=== PATIENT | female | born 1930 | race Caucasian/White ===

== ENCOUNTER 2017-04-26 18:13 | Inpatient (IN) | payer MEDICARE, OTHER ==
[~2017-04-26] VITALS: Ht 154.9 cm; Wt 103.9 kg
[~2017-04-26 18:13] MED LIST: ACET-2605 PO; AMIO200T2 PO; BISA10SU8 RC; BLOO-129 IN; DEXT1CAP3 PO; DOCU-141 PO; FLUT1DIS3 IH; HYDR-3974 PO; LEVO88TA5 PO; LISI10TA5 PO; MAGN400O21 PO; MONT10TA22 PO; NA P133E RC; PANT40TA2 PO; PIOG15TA8 PO; REGULAR INSULIN SQ; RIVA10TA PO; SIMV20TA2 PO
[2017-04-26] MEDS ORDERED: IPRATROPIUM NEB FS 0.5 MG/2.5 ML AMPUL.NEB NEB ONE (20:00)
[2017-04-26] MEDS ORDERED: ALBUTEROL FS 2.5 MG/0.5 ML VIAL.NEB NEB ONE ×2 (20:00→21:00)
--- NOTE | 2017-04-26 20:05 | NUR ---
GUS ALVARENGA (DAUGHTER.
[2017-04-26] MEDS ORDERED: IPRATROPIUM NEB FS 0.5 MG/2.5 ML AMPUL.NEB ONE (20:11)
[2017-04-26] MEDS ORDERED: ALBUTEROL FS 2.5 MG/0.5 ML VIAL.NEB ONE (20:11)
[2017-04-26 20:21] LABS: BASOPHILS # (AUTO) 0.2 /CMM (0.0-0.2); BASOPHILS % (AUTO) 1.5 % (0.0-2.0); EOSINOPHILS # (AUTO) 0.2 /CMM (0.0-0.7); EOSINOPHILS % (AUTO) 1.9 % (0.0-6.0); HEMATOCRIT 38 % (33-45); HEMOGLOBIN 12.8 g/dL (11.5-14.8); LYMPHOCYTES # (AUTO) 2.7 /CMM (0.8-4.8); LYMPHOCYTES % (AUTO) 26.6 % (20.0-44.0); MEAN CORPUSCULAR HEMOGLOBIN 30 PG (26.0-33.0); MEAN CORPUSCULAR HGB CONC 33 g/dl (31.0-36.0); MEAN CORPUSCULAR VOLUME 90 fL (82-100); MONOCYTES % (AUTO) 9.5 % (2.0-12.0); NEUTROPHILS % (AUTO) 60.5 % (43.0-81.0); PLATELET COUNT (AUTO) 162 /CMM (150-450); RDW COEFFICIENT OF VARIATION 13.6 (11.5-15.0); RED BLOOD CELL COUNT(AUTO) 4.27 MIL/uL (4.0-5.2); WHITE BLOOD COUNT (AUTO) 10.1 K/uL (4.3-11.0)
--- NOTE | 2017-04-26 20:25 | NUR ---
Line started on R FA g 20, blood drawn from line and sent to lab
[2017-04-26 20:33] LABS: CARBON DIOXIDE 36 mmol/L (21-32); CHLORIDE 105 mmol/L (98-107); CREATININE 0.7 mg/dL (0.6-1.3); GLUCOSE 123 mg/dL (74-106); POTASSIUM 4.5 mmol/L (3.5-5.1); SODIUM SERUM 143 mmol/L (136-145); UREA NITROGEN, BLOOD 19 mg/dL (7-18)
[2017-04-26 20:36] LABS: INR 0.99 (0.85-1.15)
[2017-04-26 20:38] LABS: ALANINE AMINOTRANSFERASE 8 U/L (12-78); ALBUMIN 2.3 g/dL (3.4-5.0); ALKALINE PHOSPHATASE 64 U/L (46-116); ASPARTATE AMINOTRANSFERASE 18 U/L (15-37); BILIRUBIN,DIRECT 0.1 mg/dL (0.0-0.2); BILIRUBIN,TOTAL 0.3 mg/dL (0.2-1.0); TOTAL PROTEIN, SERUM 7.4 g/dL (6.4-8.2)
[2017-04-26 20:53] LABS: TROPONIN I < 0.017 ng/mL (0.00-0.056)
[2017-04-26] MEDS ORDERED: methylPREDNISolone SOD SUCC 125 MG/2ML VIAL ONE (20:55)
[2017-04-26] MEDS ORDERED: methylPREDNISolone SOD SUCC 125 MG/2ML VIAL IV ONE (21:00)
--- NOTE | 2017-04-26 21:20 | NUR ---
teresita beavers talking to pt daughter.
--- NOTE | 2017-04-26 21:32 | NUR ---
report called to television camera operatorstephen quinones. will transport pt via acls protocol.
[2017-04-26 22:00] VITALS: BP 132/76
--- NOTE | 2017-04-26 22:15 | NUR ---
TELE/RN OPENING NOTES PT RECEIVED FROM ER VIA [facility]. CURRENTLY RECEIVING BREATHING TX. IV TO RFA PATENT AND INTACT. PLACED ON TELE MONITOR SHOWING SR WITH HR 60. ORIENTED PT TO ROOM AND CALL LIGHT. BED IN LOW/LOCKED POSITION WITH CALL LIGHT IN REACH. SIDE RAILS UPX2. WILL CONTINUE TO MONITOR
[2017-04-26] MEDS ORDERED: IPRATROPIUM NEB FS 0.5 MG/2.5 ML AMPUL.NEB NEB PRN (22:30)
[2017-04-26] MEDS ORDERED: ALBUTEROL FS 2.5 MG/0.5 ML VIAL.NEB NEB PRN (22:30)
[2017-04-27] VITALS: BP 120/60
[2017-04-27] MEDS ORDERED: Z GUARD REMEDY 2 OZ OINT TP PRN
[2017-04-27] MEDS ORDERED: ONDANSETRON HCL/PF 4 MG/2 ML VIAL IVP PRN
[2017-04-27] MEDS ORDERED: DEXTROSE 50%-WATER 50 ML DISP.SYRIN IV PRN
[2017-04-27] MEDS ORDERED: ACETYLCYSTEINE 10% SOLN 400 MG/4 ML VIAL NEB ONE (01:30)
[2017-04-27] MEDS ORDERED: LEVOFLOXACIN 500 MG /D5W 100ML 100 ML IV ONE (01:43)
[2017-04-27] MEDS: IV NS 0.9% 1,000 ML IV PRN ×2 (01:47→21:36)
[2017-04-27] MEDS ORDERED: LEVOFLOXACIN 500 MG /D5W 100ML 500 MG in PREMIX 1 EA IV SCH (02:00)
[2017-04-27] MEDS: IPRATROPIUM NEB FS 0.5 MG/2.5 ML AMPUL.NEB NEB SCH ×6 (03:18→23:54)
[2017-04-27] MEDS ORDERED: ALBUTEROL FS 2.5 MG/0.5 ML VIAL.NEB NEB SCH (03:30)
[2017-04-27 04:00] VITALS: BP 139/66
[2017-04-27] MEDS: methylPREDNISolone SOD SUCC 125 MG/2ML VIAL IV SCH ×3 (04:39→21:29)
[2017-04-27] MEDS: BLOOD SUGAR DIAGNOSTIC 1 EACH STRIP VI SCH ×4 (06:48→21:05)
[2017-04-27] MEDS: INSULIN REGULAR, HUMAN 100 UNIT/ML 3 ML VIAL SQ PRN ×2 (06:51→14:35)
[2017-04-27 07:04] LABS: BASOPHILS % (AUTO) 0.2 % (0.0-2.0); EOSINOPHILS % (AUTO) 0.1 % (0.0-6.0); HEMATOCRIT 34 % (33-45); HEMOGLOBIN 11.3 g/dL (11.5-14.8); LYMPHOCYTES # (AUTO) 1.3 /CMM (0.8-4.8); LYMPHOCYTES % (AUTO) 16.4 % (20.0-44.0); MEAN CORPUSCULAR HEMOGLOBIN 30 PG (26.0-33.0); MEAN CORPUSCULAR HGB CONC 33 g/dl (31.0-36.0); MEAN CORPUSCULAR VOLUME 90 fL (82-100); MONOCYTES # (AUTO) 0.1 /CMM (0.1-1.30); MONOCYTES % (AUTO) 1.3 % (2.0-12.0); NEUTROPHILS # (AUTO) 6.4 /CMM (1.8-8.9); PLATELET COUNT (AUTO) 156 /CMM (150-450); RDW COEFFICIENT OF VARIATION 14.1 (11.5-15.0); RED BLOOD CELL COUNT(AUTO) 3.77 MIL/uL (4.0-5.2); WHITE BLOOD COUNT (AUTO) 7.8 K/uL (4.3-11.0)
--- NOTE | 2017-04-27 07:09 | NUR ---
TELE/RN CLOSING NOTES PT AWAKE, SITTING UP IN BED. ON 3L O2 VIA NC, BREATHING EVEN AND UNLABORED. HOB ELEVATED FOR OPTIMAL LUNG EXPANSION. WHEEZING NOTED DURING SHIFT. INTERMITTENT SOB. BREATHING TX PROVIDED ORDERED. IN NO DISTRESS AT THIS TIME. ON TELE MONITOR SHOWING SR/SB WITH HR 56. IV TO RFA PATENT AND INTACT RUNNING IVF ORDERED. TURNED/REPOSITIONED Q2H. HEELS OFFLOADED. WOUND CONSULT ORDERED. ALL NEEDS MET. MADE PT COMFORTABLE DURING SHIFT. BED IN LOW/LOCKED POSITION WITH CALL LIGHT IN REACH. SIDE RAILS UPX2. BED ALARM ON FOR SAFETY.
[2017-04-27 07:13] LABS: CALCIUM, SERUM 8.5 mg/dL (8.5-10.1); CARBON DIOXIDE 33 mmol/L (21-32); CHLORIDE 103 mmol/L (98-107); CREATININE 0.8 mg/dL (0.6-1.3); GLUCOSE 166 mg/dL (74-106); MAGNESIUM 2.1 mg/dL (1.8-2.4); PHOSPHORUS 3.2 mg/dL (2.5-4.9); POTASSIUM 4.4 mmol/L (3.5-5.1); SODIUM SERUM 142 mmol/L (136-145); UREA NITROGEN, BLOOD 21 mg/dL (7-18)
[2017-04-27 07:17] LABS: CHOLESTEROL 156 mg/dL (<200); HDL CHOLESTEROL 58 mg/dL (40-60); LDL 86 mg/dL (0-99); TRIGLYCERIDES 80 mg/dL (30-150)
[2017-04-27] MEDS: ACETYLCYSTEINE 10% SOLN 400 MG/4 ML VIAL NEB SCH ×3 (07:35→23:30)
[2017-04-27 08:00] VITALS: BP 161/88
--- NOTE | 2017-04-27 08:00 | NUR ---
MS GONZALEZ RECEIVED A VENT DEPENDENT PATIENT,NONVERBAL, G TUBE FEEDING ON, TOLERATING W/O RESIDUAL, BILATERAL LEGS AND ARMS EDEMA,REPOSITIONED FOR COMFORT. Addendum: 04/27/17 at 1743 by RONALD LIM RN DISREGARD NOTES, WRONG PATIENT .
--- NOTE | 2017-04-27 08:05 | NUR ---
MS RN RECEIVED ON BED, AWAKE,ALERT,ORIENTEDX3,NOT IN ANY FORM OF DISTRESS, RESPIRATIONS EVEN AND UNLABORED,NO SOB NOTED. LUNGS ARE CLEAR,ABDOMEN SOFT,POSITIVE BOWEL SOUNDS, DENIES PAIN AT THIS TIME,WILL MONITOR PATIENT.
[2017-04-27] MEDS ORDERED: FLUTICASONE/SALMETEROL DISKUS IH SCH (09:00)
[2017-04-27] MEDS ORDERED: ENOXAPARIN SODIUM 40 MG/0.4 ML DISP.SYRIN SQ SCH (09:00)
--- NOTE | 2017-04-27 09:00 | NUR ---
MS GONZALEZ BREAKFAST SERVED,DUE MEDS GIVEN, TOLERATED WELL.
[2017-04-27] MEDS: PIOGLITAZONE HCL 15 MG TABLET PO SCH (09:08)
[2017-04-27] MEDS: PANTOPRAZOLE 40 MG TABLET.DR PO SCH (09:08)
[2017-04-27] MEDS: LEVOTHYROXINE SODIUM 88 MCG TABLET PO SCH (09:08)
[2017-04-27] MEDS: AMIODARONE HCL 200 MG TABLET PO SCH (09:09)
[2017-04-27] MEDS: LISINOPRIL (10MG) 10 MG TABLET PO SCH (09:09)
--- NOTE | 2017-04-27 10:00 | NUR ---
MS RN WAS SEEN BY DR. CHANDA Lagos/ ORDERS MADE AND CARRIED OUT.
--- NOTE | 2017-04-27 11:43 | NUR ---
WOUND CARE CONSULT: PT PRESENTS WITH BILATERAL BUTTOCK STAGE 2 ULCERS, PRESENT ON ADMISSION. CURRENT FATOUMATA SCORE IS 12. PT ON DON ISOFLEX LOW AIRLOSS BED. ALL SKIN PROTECTION AND WOUND RECOMMENDATIONS DISCUSSED WITH NURSING STAFF. WILL SEE PRN. FREEDMAN IN AGREEMENT WITH PLAN OF CARE.
[2017-04-27 12:00] VITALS: BP 140/74
[2017-04-27] MEDS ORDERED: HYDROGEL DRESSING 90 GM TUBE TP SCH (12:00)
[2017-04-27] MEDS ORDERED: HYDROGEL DRESSING 90 GM TUBE TP PRN (12:00)
[2017-04-27] MEDS: FLUTICASONE/VILANTEROL 1 EACH BLST.W.DEV IH SCH (14:30)
[2017-04-27 16:00] VITALS: BP 136/74
--- NOTE | 2017-04-27 17:00 | NUR ---
MS RN PATIENT IS ALWAYS SCREAMING, WANTED TO GO HOME, ALL NEEDS ATTENDED.
[2017-04-27] MEDS: RIVAROXABAN 15 MG TABLET PO SCH (18:27)
[2017-04-27] MEDS: SIMVASTATIN 20 MG TABLET PO SCH (18:27)
--- NOTE | 2017-04-27 19:00 | NUR ---
MS RN ON BED, REFUSED BLOOD SUGAR CHECK AND DINNER,NO DISTRESS NOTED.
[2017-04-27 20:00] VITALS: BP 139/73
[2017-04-27] MEDS: *INSULIN REGULAR(HUMULIN R)HUM 100 UNIT/ML VIAL SQ PRN (21:21)
[2017-04-27] MEDS: MONTELUKAST SODIUM (10MG) 10 MG TABLET PO SCH (21:30)
[2017-04-28] MEDS: ZOLPIDEM TARTRATE 5 MG TABLET PO PRN ×2 (00:22→21:33)
[2017-04-28] MEDS: LEVOFLOXACIN 250 MG /D5W 50 ML 250 MG in PREMIX 1 EA IV SCH (01:03)
[2017-04-28] MEDS: IPRATROPIUM NEB FS 0.5 MG/2.5 ML AMPUL.NEB NEB SCH ×5 (03:30→20:53)
[2017-04-28] MEDS: methylPREDNISolone SOD SUCC 125 MG/2ML VIAL IV SCH ×3 (05:55→21:30)
[2017-04-28] MEDS: INSULIN REGULAR, HUMAN 100 UNIT/ML 3 ML VIAL SQ PRN ×3 (06:02→18:31)
[2017-04-28] MEDS: BLOOD SUGAR DIAGNOSTIC 1 EACH STRIP VI SCH ×4 (06:24→21:31)
--- NOTE | 2017-04-28 07:11 | NUR ---
RN NOTES No significant change in condition. on oxygen inhalation via nasal cannula with no respiratory distress noted. No SOB noted. Patient is forgetful and confused, reality orientation provided. Turned and repositioned as scheduled, good skin care provided. Due meds given as ordered. All nursing care attended. Will continue to monitor.
[2017-04-28] MEDS: ACETYLCYSTEINE 10% SOLN 400 MG/4 ML VIAL NEB SCH ×2 (07:32→15:44)
[2017-04-28 08:00] VITALS: BP 147/75
--- NOTE | 2017-04-28 08:00 | NUR ---
ms rn received on bed, awake,alert,oriented x2-3,not in any form of distress, respirations even and unlabored,no sob noted.lungs have wheezes bilaterally, abdomen soft,positive bowel sounds, denies pain at this time.will monitor patient.
--- NOTE | 2017-04-28 08:30 | NUR ---
ms rn patient on bed, eating,all needs attended.
--- NOTE | 2017-04-28 08:40 | NUR ---
ms rn student ask if patient can be move up. told her that patient is so heavy,cannot even get up.
--- NOTE | 2017-04-28 08:42 | NUR ---
ms rn student ask if patient can have oxygen, told her that yes, she can have but sometimes she remove it.
--- NOTE | 2017-04-28 08:56 | NUR ---
ms rn was notified that students are trying to get up patient to the wheelchair, and patient fell, went to the room immediately, saw students and patient on the floor lying down. i cannot imagine students trying to move patient from bed to wheelchair w/o notifying rn , wearing a regular socks and w/o the presence of their instructor. assessed patient , no pain noted,no bruise/skin breakdown, able to move bilateral upper and lower limbs.will notify .
--- NOTE | 2017-04-28 09:30 | NUR ---
ms rn due meds given,tolerated well.
--- NOTE | 2017-04-28 10:00 | NUR ---
ms rn was seen by dr. batista, was notified about the fall, assessed patient and decided that xray is not needed.
[2017-04-28] MEDS: FLUTICASONE/VILANTEROL 1 EACH BLST.W.DEV IH SCH (10:23)
[2017-04-28] MEDS: LEVOTHYROXINE SODIUM 88 MCG TABLET PO SCH (10:23)
[2017-04-28] MEDS: PANTOPRAZOLE 40 MG TABLET.DR PO SCH (10:24)
[2017-04-28] MEDS: AMIODARONE HCL 200 MG TABLET PO SCH (10:25)
[2017-04-28] MEDS: LISINOPRIL (10MG) 10 MG TABLET PO SCH (10:25)
[2017-04-28] MEDS: PIOGLITAZONE HCL 15 MG TABLET PO SCH (10:25)
[2017-04-28] MEDS ORDERED: FUROSEMIDE 20 MG/2 ML VIAL IV ONE (11:00)
[2017-04-28] MEDS: ALBUTEROL FS 2.5 MG/0.5 ML VIAL.NEB NEB SCH ×3 (11:12→20:53)
[2017-04-28] MEDS ORDERED: IPRATROPIUM NEB FS 0.5 MG/2.5 ML AMPUL.NEB NEB SCH (11:30)
--- NOTE | 2017-04-28 15:00 | NUR ---
ms rn sleeping, no distress noted.
[2017-04-28 16:00] VITALS: BP 130/66
[2017-04-28] MEDS: SIMVASTATIN 20 MG TABLET PO SCH (17:44)
[2017-04-28] MEDS: RIVAROXABAN 15 MG TABLET PO SCH (17:46)
--- NOTE | 2017-04-28 18:34 | NUR ---
ms rn on bed, no distress noted, all needs attended.
--- NOTE | 2017-04-28 19:30 | NUR ---
RN NOTE; RECEIVED PT IN BED AWAKE AND ANXIOUS. BREATHING EVENLY. SKIN WARM ND DRY. NO C/O PAIN OR DISCOMFORT. SUPPLEMENTAL O2 TOLERATED WELL. NEEDS ATTENDED. BED LOW LOCKED .CALL LIGHT WITHIN REACH. WILL CONT TO MONITOR ,
[2017-04-28 20:00] VITALS: BP 123/74
[2017-04-28] MEDS: MONTELUKAST SODIUM (10MG) 10 MG TABLET PO SCH (21:30)
[2017-04-28] MEDS: *INSULIN REGULAR(HUMULIN R)HUM 100 UNIT/ML VIAL SQ PRN (21:31)
--- NOTE | 2017-04-28 21:33 | NUR ---
MARTHAIEN GIVEN ORDERED PER PT'S REQUEST FOR C/O INSOMNIA. WILL CONT TO MONITOR.
[2017-04-29] MEDS: ALBUTEROL FS 2.5 MG/0.5 ML VIAL.NEB NEB SCH ×5 (00:15→15:37)
[2017-04-29] MEDS: IPRATROPIUM NEB FS 0.5 MG/2.5 ML AMPUL.NEB NEB SCH ×5 (00:15→15:37)
[2017-04-29] MEDS: ACETYLCYSTEINE 10% SOLN 400 MG/4 ML VIAL NEB SCH ×3 (00:16→15:38)
[2017-04-29] MEDS: LEVOFLOXACIN 250 MG /D5W 50 ML 250 MG in PREMIX 1 EA IV SCH (02:06)
[2017-04-29] MEDS: methylPREDNISolone SOD SUCC 125 MG/2ML VIAL IV SCH ×2 (04:45→13:36)
--- NOTE | 2017-04-29 06:35 | NUR ---
RN NOTES: PATIENT IN BED SLEEPING COMFORTABLY. NO ACUTE DISTRESS NOTED. BREATHING EVEN AND UNLABORED. SKIN IS WARM AND DRY TOUCH. NO C/O PAIN OR DISCOMFORT NOTED AT THIS TIME. PT. TURNED AND REPOSITIONED Q2 AND PRN. IV SITE TO LEFT FA PATENT AND INTACT. ALL NEEDS ATTENDED AND ANTICIPATED. BED IN LOW LOCKED POSITION. FALL PRECAUTIONS OBSERVED AT ALL TIMES. CALL LIGHTS WITHIN REACH. Addendum: 04/29/17 at 0701 by LEIF HANEY RN IV SITE TO LEFT INDEX FINGER
[2017-04-29] MEDS: BLOOD SUGAR DIAGNOSTIC 1 EACH STRIP VI SCH ×2 (06:49→11:56)
[2017-04-29] MEDS: INSULIN REGULAR, HUMAN 100 UNIT/ML 3 ML VIAL SQ PRN ×2 (06:52→11:59)
--- NOTE | 2017-04-29 07:30 | NUR ---
MS RN NOTES PATIENT RECEIVED RESTING INSIDE ROOM, AWAKE, ALERT AND ORIENTED, ABLE TO MAKE NEEDS KNOWN AND FOLLOW SIMPLE INSTRUCTIONS, BREATHING EVEN AND UNLABORED. NO SOB OR ACUTE DISTRESS NOTED AT THIS TIME. PATIENT CALM AND RELAXED. NO CHANGES IN LOC NOTED AT THIS TIME. WILL CONTINUE TO MONITOR. BED LOCKED AND IN LOW POSITION, BILATERAL UPPER SIDE RAILS UP AND LOCKED. CALL LIGHT WITHIN EASY REACH
[2017-04-29] MEDS: FLUTICASONE/VILANTEROL 1 EACH BLST.W.DEV IH SCH (08:22)
[2017-04-29] MEDS: PIOGLITAZONE HCL 15 MG TABLET PO SCH (08:23)
[2017-04-29] MEDS: LEVOTHYROXINE SODIUM 88 MCG TABLET PO SCH (08:23)
[2017-04-29] MEDS: LISINOPRIL (10MG) 10 MG TABLET PO SCH (08:23)
[2017-04-29] MEDS: PANTOPRAZOLE 40 MG TABLET.DR PO SCH (08:25)
[2017-04-29 08:26] VITALS: BP 124/63
[2017-04-29] MEDS: AMIODARONE HCL 200 MG TABLET PO SCH (08:26)
--- NOTE | 2017-04-29 16:40 | NUR ---
MS RN NOTES PATIENT LEFT UNIT VIA GURNEY. LEFT IN STABLE CONDITION. NO SOB OR ACUTE DISTRESS NOTED. BREATHING EVEN AND UNLABORED. DENIES ANY PAIN OR DISCOMFORT. NO CHANGES IN LOC NOTED. PATIENT AFEBRILE, SKIN DRY AND WARM TO TOUCH. EXITCARE INSTRUCTIONS PROVIDED. DISCHARGE TEACHING PROVIDED. BELONGINGS COMPLETE UPON DISCHARGE.
--- NOTE | 2017-04-29 17:00 | NUR ---
MS RN NOTES PLACED CALL TO [facility] AND SPOKE WITH JESSICA GONZALEZ, GAVE REPORT REGARDING PATIENT.
== END 2017-04-29 18:45 | DRG 190 ==
LOC: ER 18:22 → TELE 21:13 → MED 04-27 16:48
PROVIDERS: ADMIT Nurse Practitioner Acute Care; ATTEND Nurse Practitioner Acute Care
DX: J44.1 Chronic obstructive pulmonary disease with (acute) exacerbation (principal); J96.01 Acute respiratory failure with hypoxia; L89.310 Pressure ulcer of right buttock, unstageable; I11.0 Hypertensive heart disease with heart failure; L89.320 Pressure ulcer of left buttock, unstageable; I48.2 Chronic atrial fibrillation; I50.32 Chronic diastolic (congestive) heart failure; E11.9 Type 2 diabetes mellitus without complications; J44.0 Chronic obstructive pulmonary disease with (acute) lower respiratory infection; E86.0 Dehydration; E78.5 Hyperlipidemia, unspecified; E03.9 Hypothyroidism, unspecified; I25.10 Atherosclerotic heart disease of native coronary artery without angina pectoris; F03.90 Unspecified dementia, unspecified severity, without behavioral disturbance, psychotic disturbance, mood disturbance, and anxiety; F41.9 Anxiety disorder, unspecified; K21.9 Gastro-esophageal reflux disease without esophagitis; Z96.659 Presence of unspecified artificial knee joint; Z79.899 Other long term (current) drug therapy; Z79.01 Long term (current) use of anticoagulants; K59.00 Constipation, unspecified; M19.90 Unspecified osteoarthritis, unspecified site; G89.29 Other chronic pain; J20.9 Acute bronchitis, unspecified; I70.0 Atherosclerosis of aorta
CPT/HCPCS: 36415; 71045-TC; 80048-TC; 80061-TC; 80076-TC; 82962-TC; 83605-TC; 83735-TC; 83880; 84100-TC; 84484-TC; 85025-TC; 85730-TC; 87040-TC; 87081-TC; 93307-TC; 94799-TC; A4216; A4606; A6248; J1815; J1940; J1956; J2405; J2930; J7030; Z7610

== ENCOUNTER 2017-08-28 20:28 | Emergency (ER) | payer MEDICARE, OTHER ==
[~2017-08-28] VITALS: Ht 165.1 cm; Wt 113.4 kg
[~2017-08-28 20:28] MED LIST changes: -AMIO200T2 PO; +AMIO200T4 PO
--- NOTE | 2017-08-28 20:50 | NUR ---
PT AA/OX4 COMPLAINING OF LOW BACK PAIN X3 DAYS. NAD. STABLE CONDITION. AWAITING MD PEDROZA.
--- NOTE | 2017-08-28 22:00 | NUR ---
PT RESTING COMFORTABLY. NAD
[2017-08-28] MEDS ORDERED: IV NS 0.9% 500 ML IV PRN (22:30)
--- NOTE | 2017-08-28 22:41 | NUR ---
LAB AT BEDSIDE
[2017-08-28 22:48] LABS: BASOPHILS % (AUTO) 0.3 % (0.0-2.0); EOSINOPHILS % (AUTO) 0.7 % (0.0-6.0); HEMATOCRIT 37 % (33-45); HEMOGLOBIN 12.2 g/dL (11.5-14.8); MEAN CORPUSCULAR HEMOGLOBIN 30 PG (26.0-33.0); MEAN CORPUSCULAR HGB CONC 33 g/dl (31.0-36.0); MEAN CORPUSCULAR VOLUME 93 fL (82-100); MONOCYTES # (AUTO) 0.7 /CMM (0.1-1.30); MONOCYTES % (AUTO) 8.9 % (2.0-12.0); NEUTROPHILS # (AUTO) 4.1 /CMM (1.8-8.9); NEUTROPHILS % (AUTO) 52.1 % (43.0-81.0); PLATELET COUNT (AUTO) 131 /CMM (150-450); RDW COEFFICIENT OF VARIATION 14.6 (11.5-15.0); RED BLOOD CELL COUNT(AUTO) 4.02 MIL/uL (4.0-5.2)
[2017-08-28 22:58] LABS: CALCIUM, SERUM 8.3 mg/dL (8.5-10.1); CARBON DIOXIDE 29 mmol/L (21-32); CHLORIDE 105 mmol/L (98-107); CREATININE 0.9 mg/dL (0.6-1.3); GLUCOSE 100 mg/dL (74-106); POTASSIUM 4.6 mmol/L (3.5-5.1); SODIUM SERUM 137 mmol/L (136-145); UREA NITROGEN, BLOOD 17 mg/dL (7-18)
--- NOTE | 2017-08-28 23:01 | NUR ---
PT BROUGHT TO CT
[2017-08-28 23:04] LABS: ALANINE AMINOTRANSFERASE 14 U/L (12-78); ALBUMIN 2.8 g/dL (3.4-5.0); ALKALINE PHOSPHATASE 62 U/L (46-116); ASPARTATE AMINOTRANSFERASE 13 U/L (15-37); BILIRUBIN,DIRECT 0.1 mg/dL (0.0-0.2); BILIRUBIN,TOTAL 0.2 mg/dL (0.2-1.0); LIPASE 78 U/L (73-393); TOTAL PROTEIN, SERUM 6.4 g/dL (6.4-8.2)
--- NOTE | 2017-08-28 23:16 | NUR ---
ADMINISTERED 500ML NS PER VERBAL AND WRITTEN ORDERS BY MD Stevenson
[2017-08-28 23:38] LABS: APPEARANCE,URINE SL CLOUDY (CLEAR); BILIRUBIN,URINE NEGATIVE (NEGATIVE); BLOOD, URINE NEGATIVE Ery/uL (NEGATIVE); COLOR,URINE YELLOW (YELLOW); KETONES,URINE NEGATIVE (NEGATIVE); LEUKOCYTE ESTERASE ,URINE 1+ (NEGATIVE); NITRITE, URINE NEGATIVE (NEGATIVE); PROTEIN,URINE NEGATIVE (NEGATIVE); UGLUCOSE NEGATIVE (NEGATIVE); UROBILINOGEN,URINE 0.2 EU/dL (0.2)
[2017-08-28 23:41] LABS: BACTERIA,URINE Moderate /HPF (None Seen); RBC,URINE 0-2 /HPF (0-2)
[2017-08-28 23:42] LABS: SQUAMOUS EPITHELIAL CELL,UR Moderate /HPF (None Seen)
--- NOTE | 2017-08-29 00:38 | NUR ---
PT RESTING COMFORTABLY. NAD. VSS.
--- NOTE | 2017-08-29 02:31 | NUR ---
called [facility] for S transport, [facility] [id number] trip #[id number]
[2017-08-29] MEDS ORDERED: oxyCODONE/APAP (5/325 MG) 1 UDTAB TABLET ONE ×2 (03:27→03:48)
[2017-08-29] MEDS ORDERED: oxyCODONE/APAP (5/325 MG) 1 UDTAB TABLET PO ONE ×2 (03:30→04:00)
--- NOTE | 2017-08-29 04:06 | NUR ---
Patient discharged to home in stable condition. Written and verbal after care instructions given. Patient verbalizes understanding of instruction. PT ENDORSED TO AMBULANCE COMPANY. VSS. PEARSON.
[2017-08-29 04:07] VITALS: BP 136/56
== END 2017-08-29 04:09 | disposition home or self-care (01) ==
LOC: ER 20:30
DX: M54.5 Low back pain (principal); F03.90 Unspecified dementia, unspecified severity, without behavioral disturbance, psychotic disturbance, mood disturbance, and anxiety; I48.91 Unspecified atrial fibrillation; E11.9 Type 2 diabetes mellitus without complications; I50.9 Heart failure, unspecified; I11.0 Hypertensive heart disease with heart failure; J44.9 Chronic obstructive pulmonary disease, unspecified; K21.9 Gastro-esophageal reflux disease without esophagitis; M19.90 Unspecified osteoarthritis, unspecified site; Z96.659 Presence of unspecified artificial knee joint; Z79.899 Other long term (current) drug therapy; Z79.01 Long term (current) use of anticoagulants; Z79.4 Long term (current) use of insulin
CPT/HCPCS: 36415; 72131-TC; 80048-TC; 80076-TC; 81000-TC; 83605-TC; 83690-TC; 85025-TC; 87086-TC; 87186-TC; A4606; J7040; Z7610

== ENCOUNTER 2017-11-10 20:53 | Inpatient (IN) | payer MEDICARE, OTHER ==
[~2017-11-10] VITALS: Ht 157.5 cm; Wt 98.9 kg
[~2017-11-10 20:53] MED LIST changes: -ACET-2605 PO; +ACET325T53 PO; +BISA-79 PO; -BISA10SU8 RC; -BLOO-129 IN; +CHOL100040 PO; -DEXT1CAP3 PO; +DIVA125C2 PO; -DOCU-141 PO; +DOCU250C14 PO; +FLUT1BLS IH; -FLUT1DIS3 IH; -HYDR-3974 PO; +IPRA0.2S9 IH; +LEVO100T9 PO; -LEVO88TA5 PO; +LORA0.5T PO; +NAPR-1009 PO; +OXYC-128 PO; -PANT40TA2 PO; +QUET25TA PO; -REGULAR INSULIN SQ; +SENN-167 PO
--- NOTE | 2017-11-10 21:10 | NUR ---
BB EMS FROM [facility] FOR NOT COOPERATING WITH STAFF " I WANT TO BE EVALUATED & I DON'T LIKE THAT FACILITY ". PT AAOX2, VSS. DENIES CP, SOB, DIZZINESS, N/V @ THIS TIME. PT HAS SKIN TEAR ON RT FOREARM NEAR ELBOW. PT CALM & COOPERATIVE, NAD NOTED @ THIS TIME.
--- NOTE | 2017-11-10 21:22 | NUR ---
CLOTHING WORKER AT BEDSIDE FOR LAB DRAW
[2017-11-10 21:32] LABS: BASOPHILS # (AUTO) 0.1 /CMM (0.0-0.2); BASOPHILS % (AUTO) 0.6 % (0.0-2.0); EOSINOPHILS % (AUTO) 0.6 % (0.0-6.0); HEMATOCRIT 37 % (33-45); HEMOGLOBIN 12.4 g/dL (11.5-14.8); LYMPHOCYTES # (AUTO) 3.2 /CMM (0.8-4.8); LYMPHOCYTES % (AUTO) 34.8 % (20.0-44.0); MEAN CORPUSCULAR HGB CONC 34 g/dl (31.0-36.0); MEAN CORPUSCULAR VOLUME 92 fL (82-100); MONOCYTES # (AUTO) 0.7 /CMM (0.1-1.30); MONOCYTES % (AUTO) 8.2 % (2.0-12.0); NEUTROPHILS % (AUTO) 55.8 % (43.0-81.0); PLATELET COUNT (AUTO) 176 /CMM (150-450); RED BLOOD CELL COUNT(AUTO) 4.01 MIL/uL (4.0-5.2); WHITE BLOOD COUNT (AUTO) 9.1 K/uL (4.3-11.0)
[2017-11-10 21:43] LABS: CALCIUM, SERUM 8.8 mg/dL (8.5-10.1); CARBON DIOXIDE 31 mmol/L (21-32); CHLORIDE 103 mmol/L (98-107); CREATININE 0.9 mg/dL (0.6-1.3); GLUCOSE 113 mg/dL (74-106); POTASSIUM 4.4 mmol/L (3.5-5.1); SODIUM SERUM 136 mmol/L (136-145); UREA NITROGEN, BLOOD 21 mg/dL (7-18)
[2017-11-10 21:46] LABS: INR 1.32 (0.85-1.15)
[2017-11-10 21:48] LABS: ACETAMINOPHEN 0 ug/ml (10-30); ALANINE AMINOTRANSFERASE 13 U/L (12-78); ALBUMIN 2.9 g/dL (3.4-5.0); ALKALINE PHOSPHATASE 76 U/L (46-116); ASPARTATE AMINOTRANSFERASE 15 U/L (15-37); BILIRUBIN,DIRECT 0.1 mg/dL (0.0-0.2); BILIRUBIN,TOTAL 0.2 mg/dL (0.2-1.0); TOTAL PROTEIN, SERUM 6.9 g/dL (6.4-8.2)
[2017-11-10 22:01] LABS: ALCOHOL, BLOOD < 3 mg/dL (0-0); SALICYLATE 1.4 mg/dL (2.8-20.0)
--- NOTE | 2017-11-10 22:04 | NUR ---
PT IS ASSIGNED TO GPS BED #: 216-2, DX: BIPOLAR/DEPRESSION, AND ACCEPTING PSYCHIATRIST: DR OCONNELL
[2017-11-10 22:59] LABS: APPEARANCE,URINE SL CLOUDY (CLEAR); BILIRUBIN,URINE NEGATIVE (NEGATIVE); BLOOD, URINE NEGATIVE Ery/uL (NEGATIVE); COLOR,URINE YELLOW (YELLOW); KETONES,URINE NEGATIVE (NEGATIVE); LEUKOCYTE ESTERASE ,URINE 1+ (NEGATIVE); NITRITE, URINE NEGATIVE (NEGATIVE); PROTEIN,URINE NEGATIVE (NEGATIVE); UGLUCOSE NEGATIVE (NEGATIVE)
[2017-11-10 23:04] LABS: BACTERIA,URINE Few /HPF (None Seen); RBC,URINE 0-2 /HPF (0-2); SQUAMOUS EPITHELIAL CELL,UR Few /HPF (None Seen); WBC,URINE 21-50 /HPF (0-3)
--- NOTE | 2017-11-10 23:15 | NUR ---
RN NOTES RECEIVED PT. FROM ER WITH DX. OF PSYCHOSIS, A/OX2, PT. HAS SKIN TEAR ON HER RIGHT FOREARM, STERI STRIP WAS APPLIED IN ER BUT AND WRAPPED WITH KERLIX... NEEDS TO REMOVED THE KERLIX AND STERI STRIP FOR PICTURE .. STERI STRIP WAS APPLIED AND WRAP AGAIN WITH KERLIX AFTER TAKING PICTURE. PT. REFUSED TO ANSWER ADMISSION QUESTIONS AND STATED "THAT SHE DOESN'T WANT TO ANSWER A LOT OF QUESTIONS". REFUSED TO SHOW ME HER BREAST FOLD AND STATED THERE'S NOTHING THERE" FOR SKIN ASSESSMENT. ADMISSION INSTRUCTION WAS RENDERED, BED IN LOW POSITION, DENIES PAIN, NO SOB, CONTINUE TO MONITOR
--- NOTE | 2017-11-10 23:40 | NUR ---
RN NOTES CHARGE NURSE PAGED DR. VALENTIN FOR ADMISSION ORDER FOR MEDICAL WELL ADMITTING PSYCH DOCTOR
[2017-11-11] MEDS ORDERED: ACETAMINOPHEN 325 MG TABLET PO PRN
[2017-11-11 01:48] VITALS: BP 110/44
[2017-11-11] MEDS ORDERED: MAGNESIUM HYDROXIDE 30 ML UDC PO PRN ×2 (02:00)
[2017-11-11] MEDS ORDERED: NA PHOS,M-B/NA PHOS,DI-BA 1 EA ENEMA RC PRN (02:00)
[2017-11-11] MEDS ORDERED: IPRATROPIUM NEB FS 0.5 MG/2.5 ML AMPUL.NEB IH PRN (02:00)
[2017-11-11] MEDS ORDERED: oxyCODONE/APAP (5/325 MG) 1 UDTAB TABLET PO PRN (02:00)
[2017-11-11] MEDS ORDERED: BISACODYL (5 MG) 5 MG TABLET.DR PO PRN (02:00)
[2017-11-11] MEDS ORDERED: MAG HYDROX/AL HYDROX/SIMETH 30 ML UDC PO PRN ×2 (02:00)
[2017-11-11] MEDS ORDERED: DEXTROSE 50%-WATER 50 ML DISP.SYRIN IV PRN (03:00)
[2017-11-11] MEDS: BLOOD SUGAR DIAGNOSTIC 1 EACH STRIP IN SCH ×4 (07:54→21:53)
[2017-11-11 08:00] VITALS: BP 139/68
--- NOTE | 2017-11-11 08:08 | NUR ---
DR. ARMAS IN THE UNIT AND SHOWED THE POLST AND SAID TO PUT THE ORDER OF DNR/DNI.
[2017-11-11] MEDS: LEVOTHYROXINE SODIUM 100 MCG TABLET PO SCH (08:39)
[2017-11-11] MEDS: CHOLECALCIFEROL 1,000 UNIT TABLET (VIT D3) PO SCH (08:39)
[2017-11-11] MEDS: PIOGLITAZONE HCL 15 MG TABLET PO SCH (08:39)
[2017-11-11] MEDS: DOCUSATE SODIUM 250 MG CAPSULE PO SCH (08:39)
[2017-11-11] MEDS: AMIODARONE HCL 200 MG TABLET PO SCH (08:39)
[2017-11-11] MEDS: LISINOPRIL (10MG) 10 MG TABLET PO SCH (08:40)
[2017-11-11] MEDS: FLUTICASONE/VILANTEROL 1 EACH BLST.W.DEV IH SCH (08:45)
--- NOTE | 2017-11-11 10:53 | NUR ---
WOUND CARE CONSULT: PT FOLLOWED BY SURGICAL TEAM. DEFER TO SURGICAL TEAM FOR WOUND TREATMENT PLAN. WILL SEE PRN. ALL SKIN PROTECTION AND PRESSURE ULCER PREVENTION MEASURES IN PLACE AND DISCUSSED WITH NURSING STAFF.
[2017-11-11] MEDS: DIVALPROEX SODIUM 125 MG TABLET.DR PO SCH ×2 (11:29→21:53)
--- NOTE | 2017-11-11 12:08 | NUR ---
ARY called the pt's daughter, Merary ([phone]), and left a message on her voicemail.
--- NOTE | 2017-11-11 12:08 | NUR ---
Initial Discharge Plan: Pt currently resides at [facility] located at [address] [place] [id number]; ([phone]). Per pt, she stated that she does not want to return and wants the SW to find a different placement for her. SW will work with the pt and the MD regarding appropriate discharge planning. SW will form a safe and proper discharge.
[2017-11-11] MEDS: INSULIN REGULAR, HUMAN 100 UNIT/ML 3 ML VIAL SQ PRN ×2 (12:16→21:57)
[2017-11-11] MEDS: Z GUARD REMEDY 2 OZ OINT TP SCH (13:16)
[2017-11-11 16:00] VITALS: BP 143/95
[2017-11-11] MEDS: NYSTATIN TOP POWDER 15 GM BOTTLE TP SCH (16:27)
[2017-11-11] MEDS: RIVAROXABAN 15 MG TABLET PO SCH (16:28)
[2017-11-11] MEDS: LORAZEPAM 0.5 MG TABLET PO PRN (16:28)
--- NOTE | 2017-11-11 16:28 | NUR ---
Pt. is anxious, irritbale, screaming and yelling and prn of ativan po given.
[2017-11-11 20:00] VITALS: BP 106/52
[2017-11-11] MEDS: SIMVASTATIN 20 MG TABLET PO SCH (21:53)
[2017-11-11] MEDS: SENNOSIDES 8.6 MG TABLET PO SCH (21:53)
[2017-11-11] MEDS: QUETIAPINE FUMARATE 25 MG TABLET PO SCH (21:53)
[2017-11-11] MEDS: MONTELUKAST SODIUM (10MG) 10 MG TABLET PO SCH (21:53)
[2017-11-12] MEDS: NYSTATIN TOP POWDER 15 GM BOTTLE TP SCH ×2 (03:30→15:48)
[2017-11-12 07:14] LABS: BASOPHILS % (AUTO) 0.3 % (0.0-2.0); EOSINOPHILS % (AUTO) 1.2 % (0.0-6.0); HEMATOCRIT 38 % (33-45); HEMOGLOBIN 12.2 g/dL (11.5-14.8); LYMPHOCYTES # (AUTO) 3.2 /CMM (0.8-4.8); LYMPHOCYTES % (AUTO) 41.6 % (20.0-44.0); MEAN CORPUSCULAR HGB CONC 32 g/dl (31.0-36.0); MEAN CORPUSCULAR VOLUME 93 fL (82-100); MONOCYTES # (AUTO) 0.7 /CMM (0.1-1.30); MONOCYTES % (AUTO) 8.7 % (2.0-12.0); NEUTROPHILS # (AUTO) 3.7 /CMM (1.8-8.9); NEUTROPHILS % (AUTO) 48.2 % (43.0-81.0); PLATELET COUNT (AUTO) 162 /CMM (150-450); RDW COEFFICIENT OF VARIATION 15.7 (11.5-15.0); RED BLOOD CELL COUNT(AUTO) 4.06 MIL/uL (4.0-5.2); WHITE BLOOD COUNT (AUTO) 7.7 K/uL (4.3-11.0)
[2017-11-12 07:29] LABS: ALANINE AMINOTRANSFERASE 11 U/L (12-78); ALBUMIN 2.7 g/dL (3.4-5.0); ALKALINE PHOSPHATASE 64 U/L (46-116); ASPARTATE AMINOTRANSFERASE 17 U/L (15-37); BILIRUBIN,TOTAL 0.3 mg/dL (0.2-1.0); CALCIUM, SERUM 8.6 mg/dL (8.5-10.1); CARBON DIOXIDE 29 mmol/L (21-32); CHLORIDE 106 mmol/L (98-107); CREATININE 0.9 mg/dL (0.6-1.3); GLUCOSE 91 mg/dL (74-106); POTASSIUM 4.2 mmol/L (3.5-5.1); SODIUM SERUM 141 mmol/L (136-145); TOTAL PROTEIN, SERUM 6.6 g/dL (6.4-8.2); UREA NITROGEN, BLOOD 16 mg/dL (7-18)
[2017-11-12] MEDS: BLOOD SUGAR DIAGNOSTIC 1 EACH STRIP IN SCH ×4 (07:43→21:46)
[2017-11-12 08:00] VITALS: BP 127/69
[2017-11-12 08:17] LABS: CHOLESTEROL 151 mg/dL (<200); HDL CHOLESTEROL 58 mg/dL (40-60); LDL 89 mg/dL (0-99); TRIGLYCERIDES 82 mg/dL (30-150)
[2017-11-12] MEDS: DIVALPROEX SODIUM 125 MG TABLET.DR PO SCH ×2 (08:35→20:46)
[2017-11-12] MEDS: PIOGLITAZONE HCL 15 MG TABLET PO SCH (08:35)
[2017-11-12] MEDS: DOCUSATE SODIUM 250 MG CAPSULE PO SCH (08:36)
[2017-11-12] MEDS: FLUTICASONE/VILANTEROL 1 EACH BLST.W.DEV IH SCH (08:36)
[2017-11-12] MEDS: AMIODARONE HCL 200 MG TABLET PO SCH (08:36)
[2017-11-12] MEDS: CHOLECALCIFEROL 1,000 UNIT TABLET (VIT D3) PO SCH (08:36)
[2017-11-12] MEDS: LISINOPRIL (10MG) 10 MG TABLET PO SCH (08:37)
[2017-11-12] MEDS: LEVOTHYROXINE SODIUM 100 MCG TABLET PO SCH (08:37)
[2017-11-12] MEDS: Z GUARD REMEDY 2 OZ OINT TP SCH (10:20)
[2017-11-12] MEDS: INSULIN REGULAR, HUMAN 100 UNIT/ML 3 ML VIAL SQ PRN (11:57)
--- NOTE | 2017-11-12 11:58 | NUR ---
BS is 133, refused for 2 units of Humulin R and explained on the importance and still refusing and will continue to monitor.
[2017-11-12 16:00] VITALS: BP 129/70
[2017-11-12] MEDS: RIVAROXABAN 15 MG TABLET PO SCH (17:36)
[2017-11-12 20:00] VITALS: BP 120/66
[2017-11-12] MEDS: QUETIAPINE FUMARATE 25 MG TABLET PO SCH (21:14)
[2017-11-12] MEDS: SENNOSIDES 8.6 MG TABLET PO SCH (21:14)
[2017-11-12] MEDS: SIMVASTATIN 20 MG TABLET PO SCH (21:14)
[2017-11-12] MEDS: MONTELUKAST SODIUM (10MG) 10 MG TABLET PO SCH (21:14)
--- NOTE | 2017-11-12 21:46 | NUR ---
ACCUCHECK 116 MG/DL, NO INSULIN COVERAGE AT THIS TIME. HAD HS SNACKS.
[2017-11-12] MEDS: TEMAZEPAM 7.5 MG CAPSULE PO PRN (23:44)
--- NOTE | 2017-11-12 23:44 | NUR ---
TEMAZEPAM 7.5 MG CAP 1 PO GIVEN FOR INSOMNIA.
[2017-11-13] MEDS: NYSTATIN TOP POWDER 15 GM BOTTLE TP SCH ×2 (03:30→15:26)
[2017-11-13] MEDS: BLOOD SUGAR DIAGNOSTIC 1 EACH STRIP IN SCH ×4 (07:56→21:30)
[2017-11-13 08:00] VITALS: BP 127/52
[2017-11-13] MEDS ORDERED: CIPROFLOXACIN HCL 250 MG TABLET PO SCH (09:00)
[2017-11-13] MEDS: PIOGLITAZONE HCL 15 MG TABLET PO SCH (09:04)
[2017-11-13] MEDS: DOCUSATE SODIUM 250 MG CAPSULE PO SCH (09:04)
[2017-11-13] MEDS: LISINOPRIL (10MG) 10 MG TABLET PO SCH (09:04)
[2017-11-13] MEDS: CHOLECALCIFEROL 1,000 UNIT TABLET (VIT D3) PO SCH (09:05)
[2017-11-13] MEDS: Z GUARD REMEDY 2 OZ OINT TP SCH (09:05)
[2017-11-13] MEDS: DIVALPROEX SODIUM 125 MG TABLET.DR PO SCH ×2 (09:05→20:55)
[2017-11-13] MEDS: LEVOTHYROXINE SODIUM 100 MCG TABLET PO SCH (09:05)
[2017-11-13] MEDS: AMIODARONE HCL 200 MG TABLET PO SCH (09:05)
[2017-11-13] MEDS: FLUTICASONE/VILANTEROL 1 EACH BLST.W.DEV IH SCH (09:06)
[2017-11-13 16:00] VITALS: BP 150/64
[2017-11-13] MEDS: RIVAROXABAN 15 MG TABLET PO SCH (16:13)
[2017-11-13] MEDS: LORAZEPAM 0.5 MG TABLET PO PRN (16:33)
[2017-11-13 20:00] VITALS: BP 112/49
[2017-11-13] MEDS: SIMVASTATIN 20 MG TABLET PO SCH (21:00)
[2017-11-13] MEDS: MONTELUKAST SODIUM (10MG) 10 MG TABLET PO SCH (21:00)
[2017-11-13] MEDS: SENNOSIDES 8.6 MG TABLET PO SCH (21:00)
[2017-11-13] MEDS: QUETIAPINE FUMARATE 25 MG TABLET PO SCH (21:00)
[2017-11-13] MEDS: TEMAZEPAM 7.5 MG CAPSULE PO PRN (22:23)
[2017-11-14] MEDS: NYSTATIN TOP POWDER 15 GM BOTTLE TP SCH ×2 (04:38→15:35)
[2017-11-14] MEDS: BLOOD SUGAR DIAGNOSTIC 1 EACH STRIP IN SCH ×4 (07:53→21:30)
[2017-11-14 08:00] VITALS: BP 121/73
[2017-11-14] MEDS: AMIODARONE HCL 200 MG TABLET PO SCH (08:55)
[2017-11-14] MEDS: LEVOTHYROXINE SODIUM 100 MCG TABLET PO SCH (08:55)
[2017-11-14] MEDS: LISINOPRIL (10MG) 10 MG TABLET PO SCH (08:55)
[2017-11-14] MEDS: DOCUSATE SODIUM 250 MG CAPSULE PO SCH (08:56)
[2017-11-14] MEDS: CHOLECALCIFEROL 1,000 UNIT TABLET (VIT D3) PO SCH (08:56)
[2017-11-14] MEDS: FLUTICASONE/VILANTEROL 1 EACH BLST.W.DEV IH SCH (08:56)
[2017-11-14] MEDS: PIOGLITAZONE HCL 15 MG TABLET PO SCH (08:56)
[2017-11-14] MEDS: DIVALPROEX SODIUM 125 MG TABLET.DR PO SCH ×2 (08:56→21:15)
[2017-11-14] MEDS: LORAZEPAM 0.5 MG TABLET PO PRN (08:56)
[2017-11-14] MEDS: Z GUARD REMEDY 2 OZ OINT TP SCH (08:57)
[2017-11-14 16:00] VITALS: BP 114/57
[2017-11-14] MEDS: RIVAROXABAN 15 MG TABLET PO SCH (17:06)
[2017-11-14 20:23] VITALS: BP 120/63
[2017-11-14] MEDS: SENNOSIDES 8.6 MG TABLET PO SCH (21:13)
[2017-11-14] MEDS: QUETIAPINE FUMARATE 25 MG TABLET PO SCH (21:15)
[2017-11-14] MEDS: MONTELUKAST SODIUM (10MG) 10 MG TABLET PO SCH (21:15)
[2017-11-14] MEDS: SIMVASTATIN 20 MG TABLET PO SCH (21:15)
[2017-11-14] MEDS: TEMAZEPAM 7.5 MG CAPSULE PO PRN (22:41)
[2017-11-15] MEDS: NYSTATIN TOP POWDER 15 GM BOTTLE TP SCH ×2 (06:14→16:48)
[2017-11-15 08:00] VITALS: BP 126/65
[2017-11-15] MEDS: DOCUSATE SODIUM 250 MG CAPSULE PO SCH (08:45)
[2017-11-15] MEDS: PIOGLITAZONE HCL 15 MG TABLET PO SCH (08:45)
[2017-11-15] MEDS: LEVOTHYROXINE SODIUM 100 MCG TABLET PO SCH (08:45)
[2017-11-15] MEDS: DIVALPROEX SODIUM 125 MG TABLET.DR PO SCH ×2 (08:45→16:46)
[2017-11-15] MEDS: AMIODARONE HCL 200 MG TABLET PO SCH (08:45)
[2017-11-15] MEDS: LISINOPRIL (10MG) 10 MG TABLET PO SCH (08:45)
[2017-11-15] MEDS: Z GUARD REMEDY 2 OZ OINT TP PRN (08:46)
[2017-11-15] MEDS: FLUTICASONE/VILANTEROL 1 EACH BLST.W.DEV IH SCH (08:46)
[2017-11-15] MEDS: CHOLECALCIFEROL 1,000 UNIT TABLET (VIT D3) PO SCH (08:46)
[2017-11-15] MEDS: Z GUARD REMEDY 2 OZ OINT TP SCH (09:00)
--- NOTE | 2017-11-15 09:00 | NUR ---
PATIENT HR 55, HELD AMIODORONE PO PER PROTOCOL.
[2017-11-15] MEDS: BLOOD SUGAR DIAGNOSTIC 1 EACH STRIP IN SCH ×4 (09:12→21:38)
[2017-11-15] MEDS: INSULIN REGULAR, HUMAN 100 UNIT/ML 3 ML VIAL SQ PRN (09:15)
[2017-11-15] MEDS: LORAZEPAM 0.5 MG TABLET PO PRN (14:15)
--- NOTE | 2017-11-15 14:15 | NUR ---
PATIENT IS ANXIOUS, AGITATED, YELLING, UNABLE TO REDIRECT. ADMINISTERED ATIVAN 0.5 MG , WILL CONTINUE TO MONITOR.
--- NOTE | 2017-11-15 15:32 | NUR ---
ARY called the pt's daughter, Mearry ([phone]), and informed her that the plan is still set for the pt to return to [facility].
[2017-11-15 16:00] VITALS: BP 131/60
[2017-11-15] MEDS: RIVAROXABAN 15 MG TABLET PO SCH (16:46)
--- NOTE | 2017-11-15 17:30 | NUR ---
GPS/RN PATIENT REFUSED BS CHECK X 3, EXPLAINED RISKS AND BENEFITS, WILL CONTINUE TO ENCOURAGE TO COMPLY WITH MD REGIMEN.
[2017-11-15 20:00] VITALS: BP 145/77
[2017-11-15 20:48] VITALS: BP 145/77
[2017-11-15] MEDS: SENNOSIDES 8.6 MG TABLET PO SCH (21:39)
[2017-11-15] MEDS: QUETIAPINE FUMARATE 25 MG TABLET PO SCH (21:40)
[2017-11-15] MEDS: MONTELUKAST SODIUM (10MG) 10 MG TABLET PO SCH (21:40)
[2017-11-15] MEDS: SIMVASTATIN 20 MG TABLET PO SCH (21:40)
[2017-11-16] MEDS: LORAZEPAM 0.5 MG TABLET PO PRN (01:05)
[2017-11-16] MEDS: NYSTATIN TOP POWDER 15 GM BOTTLE TP SCH ×2 (03:30→15:30)
[2017-11-16 08:00] VITALS: BP 118/80
--- NOTE | 2017-11-16 08:00 | NUR ---
GPS/RN BS 96, NO COVERAGE NEEDED, WILL CONTINUE TO MONITOR.
[2017-11-16] MEDS: BLOOD SUGAR DIAGNOSTIC 1 EACH STRIP IN SCH ×4 (09:00→21:32)
[2017-11-16] MEDS: LEVOTHYROXINE SODIUM 100 MCG TABLET PO SCH (09:01)
[2017-11-16] MEDS: DIVALPROEX SODIUM 125 MG TABLET.DR PO SCH ×3 (09:01→16:22)
[2017-11-16] MEDS: DOCUSATE SODIUM 250 MG CAPSULE PO SCH (09:01)
[2017-11-16] MEDS: LISINOPRIL (10MG) 10 MG TABLET PO SCH (09:01)
[2017-11-16] MEDS: CHOLECALCIFEROL 1,000 UNIT TABLET (VIT D3) PO SCH (09:01)
[2017-11-16] MEDS: PIOGLITAZONE HCL 15 MG TABLET PO SCH (09:01)
[2017-11-16] MEDS: AMIODARONE HCL 200 MG TABLET PO SCH (09:02)
[2017-11-16] MEDS: Z GUARD REMEDY 2 OZ OINT TP SCH (09:09)
[2017-11-16] MEDS: FLUTICASONE/VILANTEROL 1 EACH BLST.W.DEV IH SCH (09:09)
--- NOTE | 2017-11-16 12:00 | NUR ---
GPS/RN PATIENT REFUSED BS CHECK X 3, EXPLAINED RISKS AND BENEFITS, WILL CONTINUE TO ENCOURAGE TO COMPLY WITH MD REGIMEN.
--- NOTE | 2017-11-16 14:30 | NUR ---
GPS/RN PATIENT WAS AGITATED AND COMBATIVE WITH STAFF DURING DIAPER CHANGE. R FOREARM SKIN TEAR REPORTED BY MEN'S DESIGNER, CLEANSED WITH NS, APPLIED STERI STRIPS AND WRAPPED WITH KERLIX. CHARGE NURSE AWARE, WOUND CONSULT ORDERED.
[2017-11-16 16:00] VITALS: BP 100/60
[2017-11-16] MEDS: RIVAROXABAN 15 MG TABLET PO SCH (16:23)
--- NOTE | 2017-11-16 17:00 | NUR ---
GPS/RN BS 108, NO COVERAGE NEEDED, WILL CONTINUE TO MONITOR.
[2017-11-16 20:00] VITALS: BP 120/51
[2017-11-16 20:31] VITALS: BP 120/51
[2017-11-16] MEDS: QUETIAPINE FUMARATE 25 MG TABLET PO SCH (21:33)
[2017-11-16] MEDS: SIMVASTATIN 20 MG TABLET PO SCH (21:33)
[2017-11-16] MEDS: TEMAZEPAM 7.5 MG CAPSULE PO PRN (21:33)
[2017-11-16] MEDS: MONTELUKAST SODIUM (10MG) 10 MG TABLET PO SCH (21:33)
[2017-11-16] MEDS: SENNOSIDES 8.6 MG TABLET PO SCH (21:33)
[2017-11-17] MEDS: NYSTATIN TOP POWDER 15 GM BOTTLE TP SCH ×2 (03:30→16:08)
[2017-11-17] MEDS: BLOOD SUGAR DIAGNOSTIC 1 EACH STRIP IN SCH ×4 (07:30→22:32)
[2017-11-17 08:00] VITALS: BP 116/58
[2017-11-17] MEDS: AMIODARONE HCL 200 MG TABLET PO SCH (09:00)
[2017-11-17] MEDS: PIOGLITAZONE HCL 15 MG TABLET PO SCH (09:22)
[2017-11-17] MEDS: DOCUSATE SODIUM 250 MG CAPSULE PO SCH (09:22)
[2017-11-17] MEDS: LEVOTHYROXINE SODIUM 100 MCG TABLET PO SCH (09:23)
[2017-11-17] MEDS: LISINOPRIL (10MG) 10 MG TABLET PO SCH (09:23)
[2017-11-17] MEDS: CHOLECALCIFEROL 1,000 UNIT TABLET (VIT D3) PO SCH (09:23)
[2017-11-17] MEDS: DIVALPROEX SODIUM 125 MG TABLET.DR PO SCH ×3 (09:23→16:08)
[2017-11-17] MEDS: Z GUARD REMEDY 2 OZ OINT TP SCH (09:26)
[2017-11-17] MEDS: FLUTICASONE/VILANTEROL 1 EACH BLST.W.DEV IH SCH (09:26)
--- NOTE | 2017-11-17 11:42 | NUR ---
WOUND CARE CONSULT WOUND CARE RECEIVED CONSULT FOR SKIN TEAR. WOUND CARE WILL DEFER THIS CONSULT AND TREATMENT PLAN TO SURGICAL TEAM WHO ARE CURRENTLY FOLLOWING. SURGICAL TEAM HAS BEEN NOTIFIED. WILL SEE PRN.
[2017-11-17] MEDS: INSULIN REGULAR, HUMAN 100 UNIT/ML 3 ML VIAL SQ PRN (12:29)
--- NOTE | 2017-11-17 13:53 | NUR ---
ARY confirmed with Vilma ([phone]) from [facility] that the pt is set to return to the facility on Wednesday.
[2017-11-17] MEDS: RIVAROXABAN 15 MG TABLET PO SCH (16:10)
[2017-11-17 17:02] VITALS: BP 122/51
[2017-11-17 20:01] VITALS: BP 117/41
[2017-11-17] MEDS: LORAZEPAM 0.5 MG TABLET PO PRN ×2 (20:16→22:20)
[2017-11-17] MEDS: SENNOSIDES 8.6 MG TABLET PO SCH (22:19)
[2017-11-17] MEDS: QUETIAPINE FUMARATE 25 MG TABLET PO SCH (22:19)
[2017-11-17] MEDS: SIMVASTATIN 20 MG TABLET PO SCH (22:19)
[2017-11-17] MEDS: MONTELUKAST SODIUM (10MG) 10 MG TABLET PO SCH (22:26)
[2017-11-17] MEDS: TEMAZEPAM 7.5 MG CAPSULE PO PRN (22:30)
[2017-11-18] MEDS: NYSTATIN TOP POWDER 15 GM BOTTLE TP SCH ×2 (03:30→16:38)
[2017-11-18 08:00] VITALS: BP 121/55
[2017-11-18] MEDS: PIOGLITAZONE HCL 15 MG TABLET PO SCH (08:29)
[2017-11-18] MEDS: LEVOTHYROXINE SODIUM 100 MCG TABLET PO SCH (08:29)
[2017-11-18] MEDS: CHOLECALCIFEROL 1,000 UNIT TABLET (VIT D3) PO SCH (08:29)
[2017-11-18] MEDS: DOCUSATE SODIUM 250 MG CAPSULE PO SCH (08:30)
[2017-11-18] MEDS: DIVALPROEX SODIUM 125 MG TABLET.DR PO SCH ×3 (08:30→17:13)
[2017-11-18] MEDS: Z GUARD REMEDY 2 OZ OINT TP SCH (08:34)
[2017-11-18] MEDS: Z GUARD REMEDY 2 OZ OINT TP PRN (08:34)
[2017-11-18] MEDS: BLOOD SUGAR DIAGNOSTIC 1 EACH STRIP IN SCH ×4 (08:35→21:25)
[2017-11-18] MEDS: FLUTICASONE/VILANTEROL 1 EACH BLST.W.DEV IH SCH (08:35)
[2017-11-18] MEDS: LISINOPRIL (10MG) 10 MG TABLET PO SCH (08:49)
[2017-11-18] MEDS: AMIODARONE HCL 200 MG TABLET PO SCH (09:00)
--- NOTE | 2017-11-18 09:00 | NUR ---
GPS/RN BS 105, NO COVERAGE NEEDED, WILL CONTINUE TO MONITOR.
--- NOTE | 2017-11-18 12:30 | NUR ---
GPS/RN BS 142, PATIENT REFUSED INSULIN X 3, EXPLAINED RISKS AND BENEFITS, WILL CONTINUE TO ENCOURAGE TO COMPLY WITH MD REGIMEN.
--- NOTE | 2017-11-18 15:31 | NUR ---
ARY called the pt's daughter, Merary ([phone]), and left her a message stating that the pt is being discharged to [facility] ([facility]) tomorrow.
[2017-11-18 16:00] VITALS: BP 129/60
[2017-11-18] MEDS: RIVAROXABAN 15 MG TABLET PO SCH (17:14)
[2017-11-18] MEDS: INSULIN REGULAR, HUMAN 100 UNIT/ML 3 ML VIAL SQ PRN (17:22)
--- NOTE | 2017-11-18 17:26 | NUR ---
GPS/RN BS 134, 2 UNITS REGULAR INSULIN ADMINISTERED, WILL CONTINUE TO MONITOR.
--- NOTE | 2017-11-18 21:03 | NUR ---
ACCUCHECK = 107 MG/DL, NO INSULIN DUE AT THIS TIME. HS SNACKS GIVEN.
[2017-11-18] MEDS: TEMAZEPAM 7.5 MG CAPSULE PO PRN (21:24)
[2017-11-18] MEDS: SENNOSIDES 8.6 MG TABLET PO SCH (21:25)
[2017-11-18] MEDS: SIMVASTATIN 20 MG TABLET PO SCH (21:26)
[2017-11-18] MEDS: QUETIAPINE FUMARATE 25 MG TABLET PO SCH (21:26)
[2017-11-18] MEDS: MONTELUKAST SODIUM (10MG) 10 MG TABLET PO SCH (21:26)
--- NOTE | 2017-11-18 21:27 | NUR ---
TEMAZEPAM 7.5 MG CAP 1 PO GIVEN.
[2017-11-19 08:00] VITALS: BP_SYST 123; BP_SYST 139; BP_DIAS 79
[2017-11-19] MEDS: BLOOD SUGAR DIAGNOSTIC 1 EACH STRIP IN SCH (08:59)
[2017-11-19] MEDS: DOCUSATE SODIUM 250 MG CAPSULE PO SCH (08:59)
[2017-11-19 09:00] VITALS: BP 123/79
[2017-11-19] MEDS: LEVOTHYROXINE SODIUM 100 MCG TABLET PO SCH (09:00)
[2017-11-19] MEDS: LISINOPRIL (10MG) 10 MG TABLET PO SCH (09:00)
[2017-11-19] MEDS: AMIODARONE HCL 200 MG TABLET PO SCH (09:00)
[2017-11-19] MEDS: CHOLECALCIFEROL 1,000 UNIT TABLET (VIT D3) PO SCH (09:00)
[2017-11-19] MEDS: DIVALPROEX SODIUM 125 MG TABLET.DR PO SCH (09:00)
[2017-11-19] MEDS: Z GUARD REMEDY 2 OZ OINT TP SCH (09:01)
[2017-11-19] MEDS: FLUTICASONE/VILANTEROL 1 EACH BLST.W.DEV IH SCH (09:01)
[2017-11-19] MEDS: PIOGLITAZONE HCL 15 MG TABLET PO SCH (09:02)
--- NOTE | 2017-11-19 11:30 | NUR ---
GPS/RN PT D/C BACK TO [facility] ([phone]) REPORT GIVEN TO DOV GONZALEZ. NO SI OR HI AT THE TIME OF D/C. REFUSED TO SIGN D/C PAPERWORK /EXIT CARE. REFUSED PICTURES. NO BELONGINGS. LEFT VIA AMBULANCE.
--- NOTE | 2017-11-19 12:18 | NUR ---
Discharge Note: Pt was discharged to [facility] ([facility]) located at [address] [place] [address]; ([phone]). Pt was transported via [facility] (Trip #[id number]) at 11AM. Pts daughter, Merary ([phone]), was aware of this placement and approved it as well as the pt herself. Upon discharge, the pt appeared to be in a euthymic mood with a calm affect. Pt was cooperative, pleasant, well-groomed and appropriately dressed. Pt denied having any suicidal or homicidal ideation as well as any visual or auditory hallucinations. Pt will be under the care of psychiatrist, Dr. Long, located at [address] [facility], [address] [place] [address]; and her competitive intelligence analyst, Dr. Otoole, located at [address], [address] [place] [address]; .
== END 2017-11-19 11:30 | DRG 885 ==
LOC: ER 20:57 → GPS 22:19
PROVIDERS: ADMIT Psychiatry & Neurology Psychiatry; ATTEND Internal Medicine
DX: F29 Unspecified psychosis not due to a substance or known physiological condition (principal); F01.51 Vascular dementia, unspecified severity, with behavioral disturbance; I11.0 Hypertensive heart disease with heart failure; F03.91 Unspecified dementia, unspecified severity, with behavioral disturbance; I50.32 Chronic diastolic (congestive) heart failure; E44.0 Moderate protein-calorie malnutrition; E11.9 Type 2 diabetes mellitus without complications; K21.9 Gastro-esophageal reflux disease without esophagitis; J44.9 Chronic obstructive pulmonary disease, unspecified; F41.9 Anxiety disorder, unspecified; R53.1 Weakness; E86.0 Dehydration; R79.89 Other specified abnormal findings of blood chemistry; I48.2 Chronic atrial fibrillation; E03.9 Hypothyroidism, unspecified; Z68.39 Body mass index [BMI] 39.0-39.9, adult; L30.4 Erythema intertrigo; L98.8 Other specified disorders of the skin and subcutaneous tissue; M19.90 Unspecified osteoarthritis, unspecified site; Z96.659 Presence of unspecified artificial knee joint; S51.811A Laceration without foreign body of right forearm, initial encounter; E78.5 Hyperlipidemia, unspecified; S51.011A Laceration without foreign body of right elbow, initial encounter; W18.30XA Fall on same level, unspecified, initial encounter; Y92.89 Other specified places as the place of occurrence of the external cause; Z79.01 Long term (current) use of anticoagulants; I25.10 Atherosclerotic heart disease of native coronary artery without angina pectoris
CPT/HCPCS: 36415; 71045-TC; 73080-TC; 80048-TC; 80053-TC; 80061-TC; 80076-TC; 80305; 81000-TC; 82962-TC; 85025-TC; 85730-TC; 87081-TC; 87086-TC; 87186-TC; A4606; A6402; G0480; J1815; Z7610

== ENCOUNTER 2018-04-24 01:44 | Inpatient (IN) | payer MEDICARE, OTHER ==
[~2018-04-24] VITALS: Ht 167.6 cm; Wt 96.2 kg
[~2018-04-24 01:44] MED LIST changes: -NAPR-1009 PO; -SENN-167 PO; +SENN-168 PO
--- NOTE | 2018-04-24 01:56 | NUR ---
WATSON86 FROM [facility] C/O DULL CHEST PAIN X1 DAY; PT AAOX2-3, PT ON MONITOR, VSS, NAD NOTED, AT BS FOR EVAL
[2018-04-24 02:10] LABS: BASOPHILS # (AUTO) 0.1 /CMM (0.0-0.2); BASOPHILS % (AUTO) 0.7 % (0.0-2.0); EOSINOPHILS % (AUTO) 1.2 % (0.0-6.0); HEMATOCRIT 38 % (33-45); HEMOGLOBIN 12.5 g/dL (11.5-14.8); LYMPHOCYTES # (AUTO) 3.7 /CMM (0.8-4.8); LYMPHOCYTES % (AUTO) 44.8 % (20.0-44.0); MEAN CORPUSCULAR HGB CONC 33 g/dl (31.0-36.0); MEAN CORPUSCULAR VOLUME 93 fL (82-100); MONOCYTES # (AUTO) 0.7 /CMM (0.1-1.30); MONOCYTES % (AUTO) 8.6 % (2.0-12.0); NEUTROPHILS # (AUTO) 3.7 /CMM (1.8-8.9); NEUTROPHILS % (AUTO) 44.7 % (43.0-81.0); PLATELET COUNT (AUTO) 209 /CMM (150-450); RED BLOOD CELL COUNT(AUTO) 4.08 MIL/uL (4.0-5.2); WHITE BLOOD COUNT (AUTO) 8.3 K/uL (4.3-11.0)
[2018-04-24 02:18] LABS: CARBON DIOXIDE 29 mmol/L (21-32); CHLORIDE 106 mmol/L (98-107); GLUCOSE 130 mg/dL (74-106); POTASSIUM 4.1 mmol/L (3.5-5.1); SODIUM SERUM 143 mmol/L (136-145); UREA NITROGEN, BLOOD 18 mg/dL (7-18)
[2018-04-24 02:31] LABS: ALANINE AMINOTRANSFERASE 17 U/L (12-78); ALBUMIN 3.1 g/dL (3.4-5.0); ALKALINE PHOSPHATASE 70 U/L (46-116); ASPARTATE AMINOTRANSFERASE 13 U/L (15-37); B-TYPE NATRIURETIC PEPTIDE 359 PG/ML (0-125); BILIRUBIN,DIRECT 0.1 mg/dL (0.0-0.2); BILIRUBIN,TOTAL 0.3 mg/dL (0.2-1.0); TOTAL PROTEIN, SERUM 6.8 g/dL (6.4-8.2)
--- NOTE | 2018-04-24 02:51 | NUR ---
PATIENT TBA TELE 115-1.
[2018-04-24] MEDS ORDERED: MAGNESIUM HYDROXIDE 30 ML UDC PO PRN ×2 (03:30)
[2018-04-24] MEDS ORDERED: ONDANSETRON HCL/PF 4 MG/2 ML VIAL IVP PRN (03:30)
[2018-04-24] MEDS ORDERED: MAG HYDROX/AL HYDROX/SIMETH 30 ML UDC PO PRN (03:30)
[2018-04-24] MEDS ORDERED: ACETAMINOPHEN 325 MG TABLET PO PRN ×2 (03:30)
[2018-04-24] MEDS ORDERED: ASPIRIN 81 MG TAB.CHEW PO ONE (03:30)
[2018-04-24] MEDS ORDERED: IPRATROPIUM NEB FS 0.5 MG/2.5 ML AMPUL.NEB IH PRN (03:30)
[2018-04-24] MEDS ORDERED: oxyCODONE/APAP (5/325 MG) 1 UDTAB TABLET PO PRN (03:30)
[2018-04-24] MEDS ORDERED: NA PHOS,M-B/NA PHOS,DI-BA 1 EA ENEMA RC PRN (03:30)
[2018-04-24] MEDS ORDERED: Z GUARD REMEDY 2 OZ OINT TP PRN (03:30)
[2018-04-24] MEDS ORDERED: ASPIRIN 81 MG TAB.CHEW ONE (03:57)
--- NOTE | 2018-04-24 04:05 | NUR ---
reoprt given to angelic for fausto
[2018-04-24 04:26] VITALS: BP 123/79
--- NOTE | 2018-04-24 04:30 | NUR ---
TELE-1/FLORIST DESIGNER PT ADMITTED TO BED 115-1. ADMISSION ASSESSMENT COMPLETE. SKIN ASSESSMENT COMPLETE. PT ORIENTED TO ROOM, CALL LIGHT AND PLAN OF CARE. WILL CONTINUE TO MONITOR.
--- NOTE | 2018-04-24 04:50 | NUR ---
PT TRANSPORTED TO 1ST FLOOR/[facility] VIA ACLS PROTOCOL
--- NOTE | 2018-04-24 07:48 | NUR ---
PUTTY AND PATCH WORKER OPENING NOTES PT RECEIVED FROM INFECTIOUS DISEASES PHYSICIAN RN. PT SLEEPING IN BED, NO S/S OF DISTRESS. A/O X 4, ON 2 LITERS 02 VIA N/C, HR SB 56, NO SOB, CP, OR C/O OF PAIN. RAC IV INTACT AND PATENT AND INFUSING WELL. SAFETY MEASURES IN PLACE, BED IN LOW LOCKED POSITION, CALL LIGHT WITHIN REACH. WILL CONTINUE TO MONITOR.
[2018-04-24 08:00] VITALS: BP 113/46
[2018-04-24] MEDS: PIOGLITAZONE HCL 15 MG TABLET PO SCH (08:16)
[2018-04-24] MEDS: LEVOTHYROXINE SODIUM 100 MCG TABLET PO SCH (08:16)
[2018-04-24] MEDS ORDERED: BISACODYL (5 MG) 5 MG TABLET.DR PO PRN (09:00)
[2018-04-24] MEDS: CHOLECALCIFEROL 1,000 UNIT TABLET (VIT D3) PO SCH (09:25)
[2018-04-24] MEDS: DIVALPROEX SODIUM 125 MG CAP.SPRINK PO SCH ×3 (09:25→17:26)
[2018-04-24] MEDS: AMIODARONE HCL 200 MG TABLET PO SCH (09:26)
[2018-04-24] MEDS: LISINOPRIL (10MG) 10 MG TABLET PO SCH (09:26)
[2018-04-24] MEDS: QUETIAPINE FUMARATE 25 MG TABLET PO SCH (09:26)
[2018-04-24] MEDS: DOCUSATE SODIUM 250 MG CAPSULE PO SCH (09:26)
[2018-04-24] MEDS: FLUTICASONE/VILANTEROL 1 EACH BLST.W.DEV IH SCH (09:27)
[2018-04-24] MEDS: LORAZEPAM 0.5 MG TABLET PO PRN ×2 (09:53→21:14)
[2018-04-24 12:00] VITALS: BP 113/58
[2018-04-24 16:00] VITALS: BP 113/65
[2018-04-24] MEDS: SIMVASTATIN 20 MG TABLET PO SCH (17:26)
[2018-04-24] MEDS: RIVAROXABAN 10 MG TABLET PO SCH (18:00)
[2018-04-24 20:00] VITALS: BP 121/60
[2018-04-24 20:17] VITALS: BP 114/59
--- NOTE | 2018-04-24 20:25 | NUR ---
TELEVISION NEWS ANCHOR CLOSING NOTES PATIENT SLEEPING IN BED, NO S/S OF DISTRESS. A/O X 4, HR SB 56, NO SOB, CP, OR C/O OF PAIN. RAC IV INTACT AND PATENT AND INFUSING WELL. SAFETY MEASURES IN PLACE, BED IN LOW LOCKED POSITION, CALL LIGHT WITHIN REACH. CARE ENDORSED TO DIETETIC AIDE RN.
[2018-04-24] MEDS: MONTELUKAST SODIUM (10MG) 10 MG TABLET PO SCH (21:13)
[2018-04-24] MEDS: SENNOSIDES 8.6 MG TABLET PO SCH (21:13)
[2018-04-24] MEDS: ZOLPIDEM TARTRATE 5 MG TABLET PO PRN (23:02)
[2018-04-24] MEDS: HYDROCODONE/APAP 5/325MG 1 EACH TABLET PO PRN (23:03)
[2018-04-25 00:05] VITALS: BP 95/41
[2018-04-25 04:35] VITALS: BP 114/54
[2018-04-25] MEDS: PIOGLITAZONE HCL 15 MG TABLET PO SCH (06:46)
[2018-04-25] MEDS: LEVOTHYROXINE SODIUM 100 MCG TABLET PO SCH (06:46)
--- NOTE | 2018-04-25 07:00 | NUR ---
RN NOTES RECEIVED PT ON BED, A/OX4, ON RA , RESPIRATION EVEN AND UNLABORED, NO DISTRESS NOTED, ON TELE SB HR IN 50'S , R AC IV SITE G 18 CLEAN, DRY AND INTACT , SR UP x3, CALL LIGHT WITHIN EASY REACH, BED LOCKED AND IN LOWEST POSITION , CONTINUE TO MONITOR.
[2018-04-25 07:10] LABS: BASOPHILS % (AUTO) 0.4 % (0.0-2.0); EOSINOPHILS % (AUTO) 1.8 % (0.0-6.0); HEMATOCRIT 36 % (33-45); HEMOGLOBIN 11.9 g/dL (11.5-14.8); LYMPHOCYTES # (AUTO) 2.9 /CMM (0.8-4.8); LYMPHOCYTES % (AUTO) 43.5 % (20.0-44.0); MEAN CORPUSCULAR HGB CONC 33 g/dl (31.0-36.0); MEAN CORPUSCULAR VOLUME 92 fL (82-100); MONOCYTES # (AUTO) 0.6 /CMM (0.1-1.30); MONOCYTES % (AUTO) 8.2 % (2.0-12.0); NEUTROPHILS # (AUTO) 3.1 /CMM (1.8-8.9); NEUTROPHILS % (AUTO) 46.1 % (43.0-81.0); PLATELET COUNT (AUTO) 169 /CMM (150-450); WHITE BLOOD COUNT (AUTO) 6.7 K/uL (4.3-11.0)
[2018-04-25 07:24] LABS: CHOLESTEROL 140 mg/dL (<200); HDL CHOLESTEROL 46 mg/dL (40-60); LDL 79 mg/dL (0-99); TRIGLYCERIDES 96 mg/dL (30-150)
[2018-04-25 07:31] LABS: CALCIUM, SERUM 8.6 mg/dL (8.5-10.1); CARBON DIOXIDE 26 mmol/L (21-32); CHLORIDE 104 mmol/L (98-107); CREATININE 1.1 mg/dL (0.6-1.3); GLUCOSE 88 mg/dL (74-106); MAGNESIUM 2.2 mg/dL (1.8-2.4); PHOSPHORUS 4.9 mg/dL (2.5-4.9); POTASSIUM 4.3 mmol/L (3.5-5.1); SODIUM SERUM 139 mmol/L (136-145); UREA NITROGEN, BLOOD 25 mg/dL (7-18)
[2018-04-25 08:00] VITALS: BP 111/49
[2018-04-25] MEDS: LISINOPRIL (10MG) 10 MG TABLET PO SCH (08:32)
[2018-04-25] MEDS: DOCUSATE SODIUM 250 MG CAPSULE PO SCH (08:32)
[2018-04-25] MEDS: CHOLECALCIFEROL 1,000 UNIT TABLET (VIT D3) PO SCH (08:33)
[2018-04-25] MEDS: DIVALPROEX SODIUM 125 MG CAP.SPRINK PO SCH ×3 (08:33→16:57)
[2018-04-25] MEDS: QUETIAPINE FUMARATE 25 MG TABLET PO SCH (08:33)
[2018-04-25] MEDS: FLUTICASONE/VILANTEROL 1 EACH BLST.W.DEV IH SCH (08:36)
[2018-04-25] MEDS: AMIODARONE HCL 200 MG TABLET PO SCH (08:36)
[2018-04-25 12:00] VITALS: BP_SYST 92; BP_SYST 95; BP_DIAS 43; BP_DIAS 46
[2018-04-25 16:00] VITALS: BP 134/64
[2018-04-25] MEDS: RIVAROXABAN 10 MG TABLET PO SCH (17:00)
[2018-04-25] MEDS: SIMVASTATIN 20 MG TABLET PO SCH (17:00)
--- NOTE | 2018-04-25 18:14 | NUR ---
RN NOTES NO SIGNIFICANT CHANGES NOTED ON THIS SHIFT , WILL ENDORSE TO BOILER MAKER NURSE FOR CONTINUITY OF CARE .
[2018-04-25 20:00] VITALS: BP 129/59
--- NOTE | 2018-04-25 20:00 | NUR ---
KNIFE GRINDER NOTES RECEIVED PT ON BED. A/O X4. ON ROOM AIR NO RESPIRATORY DISTRESS NOTED. IV ACCESS ON RAC G18 PATENT AND INTACT. ON TELE MONITOR SB. HEAD OF BED ELEVATED. SIDE RAILS UP. CALL LIGHT WITHIN REACH. BED ALARM ON. WILL CONTINUE TO MONITOR PT CLOSELY.
[2018-04-25] MEDS: MONTELUKAST SODIUM (10MG) 10 MG TABLET PO SCH (21:10)
[2018-04-25] MEDS: SENNOSIDES 8.6 MG TABLET PO SCH (21:10)
[2018-04-26] MEDS: ZOLPIDEM TARTRATE 5 MG TABLET PO PRN ×2 (02:07→21:45)
[2018-04-26 04:00] VITALS: BP 127/99
--- NOTE | 2018-04-26 07:22 | NUR ---
MS RN NOTES NO ACUTE CHANGES NOTED DURING THE SHIFT. PROVIDED COMFORT AND SAFETY. WILL ENDORSE TO THE AM NURSE FOR CONTINUITY OF CARE.
--- NOTE | 2018-04-26 07:51 | NUR ---
MS RN OPENING NOTE RECEIVED PATIENT IN BED. ALERT ORIENTED X4. ON ROOM AIR, TOLERATING WELL. IN NO APPARENT DISTRESS OR DISCOMFORT AT THIS TIME. RESPIRATIONS EVEN AND UNLABORED. DENIES CHEST PAIN OR SOB. PATIENT IS ABLE TO COMMUNICATE NEEDS. IV ACCESS ON RIGHT AC 18G, SL, PATENT AND INTACT. PATIENT KEPT CLEAN AND COMFORTABLE. SAFETY MEASURES IN PLACE, BED IN LOW LOCKED POSITION SIDE RAILS UP X2, CALL LIGHT WITHIN EASY REACH. WILL CONTINUE TO MONITOR.
[2018-04-26 08:00] VITALS: BP_SYST 128; BP_SYST 135; BP_DIAS 40; BP_DIAS 46
[2018-04-26] MEDS: CHOLECALCIFEROL 1,000 UNIT TABLET (VIT D3) PO SCH (08:51)
[2018-04-26] MEDS: DIVALPROEX SODIUM 125 MG CAP.SPRINK PO SCH ×3 (08:51→17:27)
[2018-04-26] MEDS: DOCUSATE SODIUM 250 MG CAPSULE PO SCH (08:51)
[2018-04-26] MEDS: QUETIAPINE FUMARATE 25 MG TABLET PO SCH (08:52)
[2018-04-26] MEDS: FLUTICASONE/VILANTEROL 1 EACH BLST.W.DEV IH SCH (08:52)
[2018-04-26] MEDS: PIOGLITAZONE HCL 15 MG TABLET PO SCH (08:54)
[2018-04-26] MEDS: LEVOTHYROXINE SODIUM 100 MCG TABLET PO SCH (08:54)
[2018-04-26] MEDS: LISINOPRIL (10MG) 10 MG TABLET PO SCH (08:58)
[2018-04-26] MEDS: AMIODARONE HCL 200 MG TABLET PO SCH (08:59)
[2018-04-26] MEDS: HYDROCODONE/APAP 5/325MG 1 EACH TABLET PO PRN (15:49)
[2018-04-26 16:00] VITALS: BP 128/50
[2018-04-26] MEDS: SIMVASTATIN 20 MG TABLET PO SCH (17:27)
[2018-04-26] MEDS: RIVAROXABAN 10 MG TABLET PO SCH (17:28)
--- NOTE | 2018-04-26 18:36 | NUR ---
MS RN CLOSING NOTE PATIENT IN BED. SLEEPING, EASILY AROUSED WITH VERBAL STIMULI, ORIENTED X3-4, ANXIOUS AND UNCOOPERATIVE AT TIMES. ON ROOM AIR, TOLERATING WELL. IN NO APPARENT DISTRESS OR DISCOMFORT AT THIS TIME. RESPIRATIONS EVEN AND UNLABORED. DENIES CHEST PAIN OR SOB. PATIENT IS ABLE TO COMMUNICATE NEEDS. IV ACCESS ON RIGHT AC 18G, SL, PATENT AND INTACT. PATIENT KEPT CLEAN AND COMFORTABLE. ALL NEEDS ATTENDED, ORDERS RENDERED, TURNED AND REPOSITIONED PER PROTOCOL, SAFETY MEASURES IN PLACE, BED IN LOW LOCKED POSITION, ALARM ON, SIDE RAILS UP X2, CALL LIGHT WITHIN EASY REACH. WILL ENDORSE TO PM NURSE FOR KEYANA.
--- NOTE | 2018-04-26 19:50 | NUR ---
MS RN INITIAL NOTE, PATIENT IN BED AWAKE ORIENTED X3-4, EATING DINNER AT THIS TIME, BREATHING EVEN AND UNLABORED, NO S/S OF SOB/ACUTE DISTRESS NOTED AT THIS TIME, NO C/O CHEST PAIN AT THIS TIME, IV ACCESS ON RIGHT AC 18G PATENT AND INTACT S/L, DRY AND CLEAN AT THIS TIME, ALL NEEDS ATTENDED, SAFETY MEASURES IN PLACE, BED LOCKED AND LOW POSITION, BED ALARM ON SIDE RAILS UP X2, CALL LIGHT WITHIN EASY REACH, WILL CONTINUE TO MONITOR CLOSELY.
[2018-04-26 20:00] VITALS: BP 122/53
[2018-04-26] MEDS: MONTELUKAST SODIUM (10MG) 10 MG TABLET PO SCH (21:19)
[2018-04-26] MEDS: SENNOSIDES 8.6 MG TABLET PO SCH (21:19)
[2018-04-26 22:00] VITALS: BP 122/53
[2018-04-27] MEDS: LORAZEPAM 0.5 MG TABLET PO PRN (02:43)
[2018-04-27 04:00] VITALS: BP 135/57
[2018-04-27 06:29] LABS: BASOPHILS % (AUTO) 0.5 % (0.0-2.0); EOSINOPHILS % (AUTO) 1.2 % (0.0-6.0); HEMATOCRIT 36 % (33-45); HEMOGLOBIN 11.9 g/dL (11.5-14.8); LYMPHOCYTES # (AUTO) 2.6 /CMM (0.8-4.8); LYMPHOCYTES % (AUTO) 40.5 % (20.0-44.0); MEAN CORPUSCULAR HGB CONC 33 g/dl (31.0-36.0); MEAN CORPUSCULAR VOLUME 93 fL (82-100); MONOCYTES # (AUTO) 0.5 /CMM (0.1-1.30); MONOCYTES % (AUTO) 8.2 % (2.0-12.0); NEUTROPHILS # (AUTO) 3.2 /CMM (1.8-8.9); NEUTROPHILS % (AUTO) 49.6 % (43.0-81.0); PLATELET COUNT (AUTO) 165 /CMM (150-450); RED BLOOD CELL COUNT(AUTO) 3.91 MIL/uL (4.0-5.2); WHITE BLOOD COUNT (AUTO) 6.5 K/uL (4.3-11.0)
[2018-04-27 06:37] LABS: CALCIUM, SERUM 8.8 mg/dL (8.5-10.1); CARBON DIOXIDE 29 mmol/L (21-32); CHLORIDE 104 mmol/L (98-107); CREATININE 0.9 mg/dL (0.6-1.3); GLUCOSE 87 mg/dL (74-106); POTASSIUM 4.1 mmol/L (3.5-5.1); SODIUM SERUM 139 mmol/L (136-145); UREA NITROGEN, BLOOD 26 mg/dL (7-18)
--- NOTE | 2018-04-27 06:48 | NUR ---
MS RN CLOSING NOTE, PATIENT IN BED SLEEPING AT THIS TIME, BUT EASILY AROUSABLE TO VERBAL STIMULI, BREATHING EVEN AND UNLABORED, NO S/S OF SOB/ACUTE DISTRESS NOTED AT THIS TIME, IV ACCESS ON RIGHT AC 18G PATENT AND INTACT S/L, ALL NEEDS PROVIDED, REPOSITION PROVIDED Q2HRS AND PRN, SAFETY MEASURES IN PLACE, BED LOCKED AND LOW POSITION, BED ALARM ON SIDE RAILS UP X2, CALL LIGHT WITHIN EASY REACH, NO SIGNIFICANT CHANGE IN CONDITION DURING THE NIGHT, WILL ENDORSE CONTINUITY OF CARE TO ONCOMING NURSE.
[2018-04-27 08:00] VITALS: BP 130/41
[2018-04-27] MEDS: AMIODARONE HCL 200 MG TABLET PO SCH (09:00)
[2018-04-27] MEDS: FLUTICASONE/VILANTEROL 1 EACH BLST.W.DEV IH SCH (09:00)
[2018-04-27] MEDS: PIOGLITAZONE HCL 15 MG TABLET PO SCH (09:02)
[2018-04-27 09:03] VITALS: BP 130/41
[2018-04-27] MEDS: DOCUSATE SODIUM 250 MG CAPSULE PO SCH (09:03)
[2018-04-27] MEDS: LISINOPRIL (10MG) 10 MG TABLET PO SCH (09:03)
[2018-04-27] MEDS: LEVOTHYROXINE SODIUM 100 MCG TABLET PO SCH (09:03)
[2018-04-27] MEDS: CHOLECALCIFEROL 1,000 UNIT TABLET (VIT D3) PO SCH (09:04)
[2018-04-27] MEDS: QUETIAPINE FUMARATE 25 MG TABLET PO SCH (09:04)
[2018-04-27] MEDS: DIVALPROEX SODIUM 125 MG CAP.SPRINK PO SCH (09:04)
--- NOTE | 2018-04-27 09:11 | NUR ---
HELD AMIODARONE DUE TO LOW HR 50
--- NOTE | 2018-04-27 12:40 | NUR ---
REPORT GIVEN TO GRETCHEN GONZALEZ ( [place])
--- NOTE | 2018-04-27 14:30 | NUR ---
PATIENT CLEARED FOR TRANSFER TO FACILITY BY . PATIENT A/O X3 BUT FORGETFUL. PATIENT NOT IN ANY DISTRESS, DENIES ANY DISCOMFORT OR PAIN, VS ARE STABLE , PT ON ROOM AIR. MILD REDNESS ON SACRUM, PICTURE TAKEN AND PLACED IN THE CHART, NO OTHER SKIN ISSUES FOUND. IV LINE AND ID BAND REMOVED. PATIENT HAS NO BELONGINGS. D/C INSTRUCTIONS PROVIDED TO PATIENT, PATIENT VERBALIZED UNDERSTANDING. PATIENT PICKED UP BY AMBULANCE FOR TRANSFER TO [facility].
== END 2018-04-27 14:33 | DRG 205 ==
LOC: ER 01:52 → TELE1 03:30 → MEDSG1 04-26 05:59
PROVIDERS: ADMIT Internal Medicine; ATTEND Nurse Practitioner Acute Care
DX: M94.0 Chondrocostal junction syndrome [Tietze] (principal); G93.41 Metabolic encephalopathy; E44.0 Moderate protein-calorie malnutrition; F03.91 Unspecified dementia, unspecified severity, with behavioral disturbance; I50.32 Chronic diastolic (congestive) heart failure; L98.9 Disorder of the skin and subcutaneous tissue, unspecified; F41.9 Anxiety disorder, unspecified; I11.0 Hypertensive heart disease with heart failure; I48.0 Paroxysmal atrial fibrillation; E78.5 Hyperlipidemia, unspecified; I25.10 Atherosclerotic heart disease of native coronary artery without angina pectoris; E03.9 Hypothyroidism, unspecified; E11.9 Type 2 diabetes mellitus without complications; K21.9 Gastro-esophageal reflux disease without esophagitis; L30.4 Erythema intertrigo; J44.9 Chronic obstructive pulmonary disease, unspecified; Z79.51 Long term (current) use of inhaled steroids; Z79.01 Long term (current) use of anticoagulants; R13.10 Dysphagia, unspecified; G89.29 Other chronic pain; G47.00 Insomnia, unspecified; M19.90 Unspecified osteoarthritis, unspecified site; F32.9 Major depressive disorder, single episode, unspecified; Z96.659 Presence of unspecified artificial knee joint; Z79.899 Other long term (current) drug therapy
CPT/HCPCS: 36415; 71045-TC; 80048-TC; 80061-TC; 80076-TC; 83735-TC; 83880; 84100-TC; 84484-TC; 85025-TC; 85378-TC; 87081-TC; 93307-TC; G0378

== ENCOUNTER 2018-05-24 09:06 | Inpatient (IN) | payer MEDICARE, OTHER ==
[~2018-05-24] VITALS: Ht 162.6 cm; Wt 97.1 kg
--- NOTE | 2018-05-24 09:06 | NUR ---
MONIQUE CHAUDHARI FROM [facility] FOR ALOC; AAOX1, PT ON MONITOR, VSS, NADN OTED, PENDING MD PEDROZA
--- NOTE | 2018-05-24 09:55 | NUR ---
URINE SPECIMED COLLECTED. SENT TO LAB
[2018-05-24 10:05] LABS: APPEARANCE,URINE Clear (CLEAR); BILIRUBIN,URINE SMALL (NEGATIVE); BLOOD, URINE Moderate Ery/uL (NEGATIVE); COLOR,URINE Yellow (YELLOW); KETONES,URINE Trace (NEGATIVE); LEUKOCYTE ESTERASE ,URINE Negative (NEGATIVE); NITRITE, URINE Negative (NEGATIVE); PH,URINE 5.5 (5.0-8.0); PROTEIN,URINE >=300 mg/dl (NEGATIVE); UGLUCOSE Negative (NEGATIVE)
[2018-05-24 10:08] LABS: BACTERIA,URINE Few /HPF (None Seen); SQUAMOUS EPITHELIAL CELL,UR Few /HPF (None Seen); WBC,URINE 0-2 /HPF (0-3)
[2018-05-24 10:24] LABS: BASOPHILS % (AUTO) 0.3 % (0.0-2.0); EOSINOPHILS % (AUTO) 0.1 % (0.0-6.0); HEMATOCRIT 40 % (33-45); HEMOGLOBIN 12.8 g/dL (11.5-14.8); LYMPHOCYTES # (AUTO) 1.5 /CMM (0.8-4.8); LYMPHOCYTES % (AUTO) 12.3 % (20.0-44.0); MEAN CORPUSCULAR HGB CONC 32 g/dl (31.0-36.0); MEAN CORPUSCULAR VOLUME 95 fL (82-100); MONOCYTES % (AUTO) 7.8 % (2.0-12.0); NEUTROPHILS # (AUTO) 9.9 /CMM (1.8-8.9); NEUTROPHILS % (AUTO) 79.5 % (43.0-81.0); PLATELET COUNT (AUTO) 287 /CMM (150-450); WHITE BLOOD COUNT (AUTO) 12.4 K/uL (4.3-11.0)
[2018-05-24] MEDS ORDERED: ZOLP5TAB8 PO (10:27)
[2018-05-24] MEDS ORDERED: BISA10SU8 RC (10:27)
[2018-05-24] MEDS ORDERED: HYDR-4384 PO (10:27)
[2018-05-24 10:36] LABS: CALCIUM, SERUM 9.3 mg/dL (8.5-10.1); CARBON DIOXIDE 33 mmol/L (21-32); CHLORIDE 105 mmol/L (98-107); CREATININE 0.9 mg/dL (0.6-1.3); GLUCOSE 120 mg/dL (74-106); POTASSIUM 4.2 mmol/L (3.5-5.1); SODIUM SERUM 146 mmol/L (136-145); UREA NITROGEN, BLOOD 36 mg/dL (7-18)
[2018-05-24 10:46] LABS: ALANINE AMINOTRANSFERASE 30 U/L (12-78); ALBUMIN 2.5 g/dL (3.4-5.0); ALKALINE PHOSPHATASE 142 U/L (46-116); ASPARTATE AMINOTRANSFERASE 28 U/L (15-37); B-TYPE NATRIURETIC PEPTIDE 3367 PG/ML (0-125); BILIRUBIN,DIRECT 0.1 mg/dL (0.0-0.2); BILIRUBIN,TOTAL 0.2 mg/dL (0.2-1.0); TOTAL PROTEIN, SERUM 7.8 g/dL (6.4-8.2)
--- NOTE | 2018-05-24 11:25 | NUR ---
NATACHA PAGED, MORGAN BECKER COMPUTER VIDEO GAME DESIGNER LITERACY EDUCATION PROFESSOR
[2018-05-24] MEDS ORDERED: ENALAPRILAT DIHYD. (2.5MG/ML) 1.25 MG/ML VIAL IV ONE ×2 (11:30→11:50)
--- NOTE | 2018-05-24 11:36 | NUR ---
CALLED NURSING SUP. FOR TELE BED
--- NOTE | 2018-05-24 12:19 | NUR ---
TELE 817-7
[2018-05-24] MEDS ORDERED: ASPIRIN 300 MG/SUPP.RECT RC ONE ×2 (12:30→12:48)
--- NOTE | 2018-05-24 12:34 | NUR ---
REPORT GIVEN ULISSES RN FOR KEYANA; PT WILL BE TRANSPORTED VIA ACLS PROTOCOL
--- NOTE | 2018-05-24 12:50 | NUR ---
TRIMMING INSPECTORROLLED HAM LACER NOTES RECEIVED PATIENT VIA GURNEY ACCOMPANIED BY 2 EMERGENCY [place] LIDIA STAFF. PATIENT A/O X 1, CONFUSED BUT EASILY AROUSABLE VERBAL AND TACTILE. RESPIRATION EVEN AND NON LABORED WITH MILD EXERTION, OXYGEN PLACED AT 3LPM VIA NASAL CANNULA AND ABLE TO TOLERATE WELL. ABDOMEN SOFT AND NON DISTENDED WITH ACTIVE BOWEL SOUNDS; LBM TODAY. SKIN WARM TO TOUCH WITH OPEN SKIN BREAKDOWN AT SACRALCOCCYX AREA. WOUND CONSULT DONE. PATIENT HAS NO S/SX OF PAIN AND DISCOMFORT. SITTER PRESENT ON BED SIDE. IV SITE ON RIGHT HAND GAUGE 22 WITH NO S/SX OF INFILTRATION. PATIENT ON SR AT 74 UPON ADMISSION. ALL CONCERNS ATTENDED. PLACED CALL LIGHT WITHIN REACH FOR SAFETY. PAGED MORGAN WILDLIFE POLICY PROFESSIONAL FOR PATIENT'S CONDITION. WILL CONTINUE TO EVALUATE CARE
[2018-05-24 13:00] VITALS: BP 127/91
[2018-05-24] MEDS ORDERED: MAGNESIUM HYDROXIDE 30 ML UDC PO PRN ×2 (13:00)
[2018-05-24] MEDS ORDERED: ACETAMINOPHEN 325 MG TABLET PO PRN (13:00)
[2018-05-24] MEDS ORDERED: MAG HYDROX/AL HYDROX/SIMETH 30 ML UDC PO PRN (13:00)
[2018-05-24] MEDS ORDERED: ONDANSETRON HCL/PF 4 MG/2 ML VIAL IVP PRN (13:00)
[2018-05-24] MEDS ORDERED: IPRATROPIUM NEB FS 0.5 MG/2.5 ML AMPUL.NEB IH PRN (13:00)
[2018-05-24] MEDS ORDERED: BISACODYL SUPP (10 MG) 10 MG/SUPP.RECT SUPP.RECT RC PRN (13:00)
[2018-05-24] MEDS ORDERED: Z GUARD REMEDY 2 OZ OINT TP PRN (13:00)
[2018-05-24] MEDS: DIVALPROEX SODIUM 125 MG CAP.SPRINK PO SCH ×2 (13:00→17:00)
[2018-05-24] MEDS ORDERED: NA PHOS,M-B/NA PHOS,DI-BA 1 EA ENEMA RC PRN (13:00)
--- NOTE | 2018-05-24 14:00 | NUR ---
BROKERAGE PURCHASE AND SALE CLERK PATIENT TRANSFERRED TO RADIOLOGY FOR CT HEAD SCAN WITHOUT CONTRAST ACCOMPANIED BY STAFF VIA GURNEY.
[2018-05-24 16:00] VITALS: BP 126/58
--- NOTE | 2018-05-24 16:45 | NUR ---
TELE/SMALL PACKAGE AND BUNDLE SORTER CLERK SPOKE WITH LUIS M MORA AND MADE AWARE PATIENT CURRENTLY NPO STATUS AND IS DIABETIC, RECOMMENDED IV FLUIDS AT THIS TIME. PER CUSTOMER SERVICE SECURITY OFFICER MORGAN NO IV FLUIDS PATIENT IS CURRENTLY NPO. MADE AWARE PATIENT STILL NOTED A/O X 1, STILL LITTLE LETHARGIC UPON REACH AND UNABLE TO PERFORM BEDSIDE SWALLOW AT THIS TIME. PER PHARM PATIENT NEEDS AMIODARONE AT THIS TIME AND RECOMMENDED TO BE SWITCHED IV FOR AFIB WELL OTHER MEDICATIONS. CUSTOMER SERVICE SECURITY OFFICER MORGAN NOTIFIED PER CUSTOMER SERVICE SECURITY OFFICER SWITCH AMIO PO TO AMIO IV AND TRANSFER PATIENT TO [facility] SECONDARY TO PATIENT NEED AMIO IV, FLUID OVERLOAD AND ABNORMAL PROCALCITONIN. SPOKE WITH FANTASMA GONZALEZ FROM [facility] AND GAVE REPORT. NURSING SUP. AWARE AWAITING FOR CALL BACK WITH ROOM NUMBER
--- NOTE | 2018-05-24 17:06 | NUR ---
PELT DROPPER PATIENT MEDICATION NOT GIVEN DUE TO NPO ORDER. WILL CONTINUE TO EVALUATE CARE
--- NOTE | 2018-05-24 17:30 | NUR ---
TELE/CAUL FAT PULLER. PATIENT TRANSFERRED TO [facility] IN STABLE CONDITION VIA TELE MONITOR ON. RESPONSIBLE CONSTITUTION PARTY GUS CALLED AND LEFT MESSAGE. LUIS M MORA NOTIFIED REGARDING PATIENT TRANSFERRED TO ROOM 116-1.
--- NOTE | 2018-05-24 17:50 | NUR ---
[facility] RN NOTES PT RECEIVED IN 116-1. VS TAKEN AND PT PLACED ON TELE WITH 3L NC. ON TELE PT SR. IV INFILTRATED. MULTIPLE IV ATTEMPTS WITH ACCUVEIN FINDER. NOTIFIED NURSING HEAD PIECE ASSEMBLER YA FOR MIDLINE NURSE. WILL CONT TO MONITOR.
[2018-05-24] MEDS: CHOLECALCIFEROL 1,000 UNIT TABLET (VIT D3) PO SCH (18:00)
[2018-05-24] MEDS: SIMVASTATIN 20 MG TABLET PO SCH (18:00)
[2018-05-24] MEDS ORDERED: DEXTROSE 50%-WATER 50 ML DISP.SYRIN IV PRN (18:30)
--- NOTE | 2018-05-24 18:51 | NUR ---
[facility] RN END OF SHIFT NOTES PT RESTING IN BED, DROWSY. IV AMIO ON HOLD PT SR ON TELE. MORGAN NOTIFIED OF BP 150/71. PT NPO. PT STABLE ON 3L NC. BED IN LOCKED/LOWEST POSITION. CALL LIGHT IN REACH. WILL ENDORSE TO NOC NURSE FOR KEYANA.
--- NOTE | 2018-05-24 19:30 | NUR ---
RN NOTES RECEIVED PATIENT IN BED, AWAKE, ALERT AND ORIENTED X2 AT THIS TIME, BUT WITH PERIODS OF CONFUSION, WILL MONITOR FOR BASELINE MENTAL STATUS. ON O2 VIA NC @ 3LPM, SPO2 WNL, NO S/S OF RESPIRATORY DISTRESS. TELEMETRY MONITORING SHOWS SINUS RHYTHM, HR = 65 BPM AT THIS TIME. RIGHT HAND IV INFILTRATED, REMOVED AND PRESSURE DRESSING APPLIED, AWAITING MIDLINE INSERTION. PATIENT REPOSITIONED FOR COMFORT. WILL CONTINUE TO CLOSELY MONITOR
[2018-05-24 20:00] VITALS: BP_SYST 153; BP_DIAS 7; BP_DIAS 70
--- NOTE | 2018-05-24 20:00 | NUR ---
RN NOTES MIDLINE NURSE AT BEDSIDE. RIGHT UPPER ARM MIDLINE INSERTED, PATIENT TOLERATED WELL. WILL CONTINUE CLOSE MONITORING
[2018-05-24] MEDS: SENNOSIDES 8.6 MG TABLET PO SCH (21:14)
[2018-05-24] MEDS: VALPROATE 250 MG in IV D5W 100 ML IV SCH (21:14)
[2018-05-24] MEDS: BLOOD SUGAR DIAGNOSTIC 1 EACH STRIP IN SCH (21:14)
[2018-05-24] MEDS: MONTELUKAST SODIUM (10MG) 10 MG TABLET PO SCH (21:15)
[2018-05-24] MEDS ORDERED: FUROSEMIDE 100 MG/10 ML VIAL IV ONE (21:30)
[2018-05-24] MEDS ORDERED: IV NS 0.9% 250 ML IV PRN (21:30)
--- NOTE | 2018-05-24 22:00 | NUR ---
RN NOTES PATIENT NOTED TO BE CONTINUOUSLY STATING "HELP ME." STAFF AT BEDSIDE FOR ASSISTANCE, BUT PATIENT ONLY STATES "HELP ME." VITAL SIGNS STABLE, WNL, OTHERWISE NO ACUTE DISTRESS NOTED. WILL CONTINUE TO CLOSELY MONITOR THE PATIENT
[2018-05-25] VITALS (8 sets, daily range): BP systolic 119–170; BP diastolic 50–83
[2018-05-25] MEDS ORDERED: PIPERACILLIN /TAZOBACTAM 3.375 G VIAL IV ONE ×2 (00:31→05:12)
[2018-05-25] MEDS: PIPERACILLIN /TAZOBACTAM 3.375 G in IV D5W 50 ML IV SCH ×5 (00:38→23:38)
[2018-05-25] MEDS: VALPROATE 250 MG in IV D5W 100 ML IV SCH ×3 (05:13→19:44)
--- NOTE | 2018-05-25 06:00 | NUR ---
RN CLOSING NOTES PATIENT RESTING IN BED, APPEARS COMFORTABLE. NO ACUTE CHANGES THROUGHOUT THE SHIFT. WILL CONTINUE TO CLOSELY MONITOR
[2018-05-25 06:44] LABS: CALCIUM, SERUM 8.7 mg/dL (8.5-10.1); CARBON DIOXIDE 34 mmol/L (21-32); CHLORIDE 106 mmol/L (98-107); CREATININE 0.7 mg/dL (0.6-1.3); GLUCOSE 144 mg/dL (74-106); MAGNESIUM 2.3 mg/dL (1.8-2.4); PHOSPHORUS 2.9 mg/dL (2.5-4.9); POTASSIUM 3.4 mmol/L (3.5-5.1); SODIUM SERUM 146 mmol/L (136-145); UREA NITROGEN, BLOOD 29 mg/dL (7-18)
[2018-05-25 07:15] LABS: BASOPHILS % (AUTO) 0.3 % (0.0-2.0); EOSINOPHILS % (AUTO) 0.2 % (0.0-6.0); HEMATOCRIT 35 % (33-45); HEMOGLOBIN 11.4 g/dL (11.5-14.8); LYMPHOCYTES # (AUTO) 1.5 /CMM (0.8-4.8); LYMPHOCYTES % (AUTO) 11.8 % (20.0-44.0); MEAN CORPUSCULAR HGB CONC 33 g/dl (31.0-36.0); MEAN CORPUSCULAR VOLUME 94 fL (82-100); MONOCYTES # (AUTO) 1.1 /CMM (0.1-1.30); MONOCYTES % (AUTO) 9.2 % (2.0-12.0); NEUTROPHILS # (AUTO) 9.8 /CMM (1.8-8.9); NEUTROPHILS % (AUTO) 78.5 % (43.0-81.0); PLATELET COUNT (AUTO) 307 /CMM (150-450); RED BLOOD CELL COUNT(AUTO) 3.73 MIL/uL (4.0-5.2); WHITE BLOOD COUNT (AUTO) 12.4 K/uL (4.3-11.0)
[2018-05-25 07:18] LABS: CHOLESTEROL 127 mg/dL (<200); HDL CHOLESTEROL 37 mg/dL (40-60); LDL 71 mg/dL (0-99); THYROID STIMULATING HORMONE 1.325 uIU/mL (0.358-3.74); TRIGLYCERIDES 92 mg/dL (30-150)
[2018-05-25] MEDS: PIOGLITAZONE HCL 15 MG TABLET PO SCH (07:30)
[2018-05-25] MEDS ORDERED: LEVOTHYROXINE SODIUM 100 MCG TABLET PO SCH (07:30)
[2018-05-25] MEDS: DOCUSATE SODIUM 250 MG CAPSULE PO SCH (09:00)
[2018-05-25] MEDS: AMIODARONE HCL 200 MG TABLET PO SCH (09:00)
[2018-05-25] MEDS: LISINOPRIL (10MG) 10 MG TABLET PO SCH (09:00)
[2018-05-25] MEDS ORDERED: PANTOPRAZOLE 40 MG VIAL IV SCH (09:00)
--- NOTE | 2018-05-25 09:30 | NUR ---
TD/RN AM SHIFT INITIAL NOTES RECEIVED PT SITTING IN BED, NO ACUTE CHANGE OF CONDITION NOTED, PT A/O X 1, CONFUSED, BUT FOLLOWS COMMAND, PT ON 3L O2 VIA N/C SATURATING @ 96%, LUNG SOUNDS RHONCHI, ON TELE MONITORING, HR 63. MID LINE INTACT ON TKO WITH NO S/S OF INFECTION. PT ON NPO STATUS . PT IS COMFORTABLE, SCHEDULED AM MEDS EXCEPT FOR P.O MEDS WILL BE GIVEN. CL WITHIN REACHED AND SAFETY MAINTAINED. ON GOING MONITORING.
[2018-05-25] MEDS: FLUTICASONE/VILANTEROL 1 EACH BLST.W.DEV IH SCH (09:33)
[2018-05-25] MEDS: LEVOTHYROXINE INJ 100 MCG VIAL IV SCH (09:36)
[2018-05-25] MEDS: BLOOD SUGAR DIAGNOSTIC 1 EACH STRIP IN SCH ×4 (09:36→21:14)
[2018-05-25] MEDS ORDERED: IV NS 0.9% 500 ML IV SCH (12:30)
[2018-05-25] MEDS ORDERED: IV NS 0.9% 500 ML BAG IV ONE (12:30)
--- NOTE | 2018-05-25 13:37 | NUR ---
RN NOTE RECEIVED BEDSIDE REPORT FROM CARLOS KIRBY. PATIENT AWAKE AND VERY CONFUSED. FROM [place] TO MS. HAS SACRAL REDNESS AND BILATERAL UPPER EXTREMITIES DISCOLORATION. FROM REPORT, PATIENT WAS NPO AND ST CHANGED IT TO PUREED CCHO CARDIAC DIET. HAS A RIGHT UPPER ARM MIDLINE, TKO. BED LOCKED AND IN LOW POSITION. CALL LIGHT WITHIN REACH. WILL CONTINUE TO MONITOR PATIENT CLOSELY
[2018-05-25] MEDS: POTASSIUM CL. PREMIX PERIPHER. 50 ML IV SCH ×2 (13:41→16:03)
--- NOTE | 2018-05-25 13:46 | NUR ---
MS1/SUPERVISOR STRIPPING OF CARE REPORT GIVEN TO NURSE CORONA TO CONTINUE CARE.
--- NOTE | 2018-05-25 13:46 | NUR ---
RN NOTE KCL AND ZOSYN ADMINISTERED LATE, RN THIS MORNING SAID PHARMACY WAS LATE TO BRING ZOSYN. WILL ADMINISTER RIGHT NOW
[2018-05-25] MEDS: SIMVASTATIN 20 MG TABLET PO SCH (17:25)
[2018-05-25] MEDS: CHOLECALCIFEROL 1,000 UNIT TABLET (VIT D3) PO SCH (17:25)
[2018-05-25] MEDS ORDERED: ONDANSETRON 4 MG TAB.RAPDIS PO PRN (17:30)
--- NOTE | 2018-05-25 18:54 | NUR ---
RN CLOSING NOTE PATIENT STABLE, AWAKE AND CONFUSED. TRANSFERRED ROOM DUE TO PATIENT SCREAMS AND ROOM MATE GETS BOTHERED A LOT. PER MORGAN WAY INSPECTOR, THIS IS THE PATIENT'S BASELINE AT THE FACILITY SHE CAME IN FROM. HAS A RIGHT UPPER ARM MIDLINE, SALINE LOCKED. BED LOCKED AND LOW POSITION. CALL LIGHT WITHIN REACH. WILL ENDORSE TO NOC SHIFT RN FOR CONT OF CARE
--- NOTE | 2018-05-25 19:30 | NUR ---
RN NOTES RECEIVED PT. AWAKE ON BED, A/OX1, CONFUSED, NO PAIN NOTED, NOT IN DISTRESS, SIDERAILSUPX2, WILL CONTINUE TO MONITOR
[2018-05-25] MEDS: MONTELUKAST SODIUM (10MG) 10 MG TABLET PO SCH (21:13)
[2018-05-25] MEDS: SENNOSIDES 8.6 MG TABLET PO SCH (21:13)
[2018-05-25] MEDS: ACETAMINOPHEN 325 MG TABLET PO PRN (21:14)
[2018-05-25] MEDS: INSULIN REGULAR, HUMAN 100 UNIT/ML 3 ML VIAL SQ PRN (21:34)
[2018-05-26] MEDS: VALPROATE 250 MG in IV D5W 100 ML IV SCH ×3 (03:44→21:18)
[2018-05-26 04:36] VITALS: BP 145/80
[2018-05-26] MEDS: PIPERACILLIN /TAZOBACTAM 3.375 G in IV D5W 50 ML IV SCH ×4 (05:38→23:59)
[2018-05-26 06:31] LABS: BASOPHILS # (AUTO) 0.1 /CMM (0.0-0.2); BASOPHILS % (AUTO) 0.5 % (0.0-2.0); EOSINOPHILS % (AUTO) 0.2 % (0.0-6.0); HEMATOCRIT 32 % (33-45); HEMOGLOBIN 10.7 g/dL (11.5-14.8); LYMPHOCYTES # (AUTO) 2.2 /CMM (0.8-4.8); LYMPHOCYTES % (AUTO) 17.8 % (20.0-44.0); MEAN CORPUSCULAR HGB CONC 33 g/dl (31.0-36.0); MEAN CORPUSCULAR VOLUME 92 fL (82-100); MONOCYTES # (AUTO) 0.9 /CMM (0.1-1.30); MONOCYTES % (AUTO) 7.5 % (2.0-12.0); NEUTROPHILS # (AUTO) 9.1 /CMM (1.8-8.9); PLATELET COUNT (AUTO) 271 /CMM (150-450); WHITE BLOOD COUNT (AUTO) 12.3 K/uL (4.3-11.0)
--- NOTE | 2018-05-26 06:33 | NUR ---
RN NOTES AWAKE, NO PAIN NOTED, NOT IN DISTRESS, MORNING CARE RENDERED, CALL LIGHT WITHIN REACH, SIDERAILSUPX2, PT. NEEDS ATTENDED
[2018-05-26 07:03] LABS: CALCIUM, SERUM 8.6 mg/dL (8.5-10.1); CARBON DIOXIDE 34 mmol/L (21-32); CHLORIDE 105 mmol/L (98-107); CREATININE 0.6 mg/dL (0.6-1.3); GLUCOSE 102 mg/dL (74-106); MAGNESIUM 2.5 mg/dL (1.8-2.4); PHOSPHORUS 3.5 mg/dL (2.5-4.9); POTASSIUM 4.3 mmol/L (3.5-5.1); SODIUM SERUM 144 mmol/L (136-145); UREA NITROGEN, BLOOD 26 mg/dL (7-18)
--- NOTE | 2018-05-26 07:42 | NUR ---
MS RN OPENING NOTE RECEIVED PATIENT IN BED, AWAKE. PT STABLE, A/O X 3. OMID MID LINE INTACT AND PATENT, SALINE LOCKED. BED IN LOCKED AND LOW POSITION. CALL LIGHT WITHIN REACH. WILL CONTNUE TO MONITOR.
--- NOTE | 2018-05-26 07:46 | NUR ---
WOUND CARE CONSULT WOUND CARE RECEIVED CONSULT FOR PRESENCE OF WOUND. WOUND CARE WILL DEFER CONSULT AND TREATMENT PLANS TO PLASTIC SURGICAL TEAM WHO ARE CURRENTLY FOLLOWING THIS PATIENT. PATIENT WITH FATOUMATA AT 10, ALL PRESSURE ULCER PREVENTION MEASURES ARE NOTED TO BE IN PLACE AT THIS TIME. WILL SEE PRN.
[2018-05-26 08:00] VITALS: BP 154/64
[2018-05-26] MEDS: BLOOD SUGAR DIAGNOSTIC 1 EACH STRIP IN SCH ×4 (08:00→21:19)
[2018-05-26] MEDS: PIOGLITAZONE HCL 15 MG TABLET PO SCH (08:05)
[2018-05-26] MEDS: AMIODARONE HCL 200 MG TABLET PO SCH ×2 (08:06→08:25)
[2018-05-26] MEDS: DOCUSATE SODIUM 250 MG CAPSULE PO SCH (08:06)
[2018-05-26] MEDS: PANTOPRAZOLE 40 MG TABLET.DR PO SCH (08:07)
[2018-05-26] MEDS: LISINOPRIL (10MG) 10 MG TABLET PO SCH (08:08)
--- NOTE | 2018-05-26 08:21 | NUR ---
MS RN NOTE AMIODARONE HELD PER MD ORDER WITH HR<60. HR 56BPM AT TIME OF ADMINISTRATION. MEDICATION SCANNED AND OPENED BUT NOT GIVEN.
[2018-05-26] MEDS: FLUTICASONE/VILANTEROL 1 EACH BLST.W.DEV IH SCH (08:28)
[2018-05-26 16:00] VITALS: BP 132/67
[2018-05-26] MEDS: CHOLECALCIFEROL 1,000 UNIT TABLET (VIT D3) PO SCH (18:05)
[2018-05-26] MEDS: SIMVASTATIN 20 MG TABLET PO SCH (18:05)
--- NOTE | 2018-05-26 19:00 | NUR ---
MS RN RECEIVE PT IN BED. A/O X 1-2. RESPIRATIONS EVEN AND UNLABORED, NO SOB NOTED, NO DISTRESS, SAFETY MEASURES IN PLACE. WILL CONTINUE TO MONITOR.
--- NOTE | 2018-05-26 19:42 | NUR ---
MS RN CLOSING NOTE PATIENT IN BED, AWAKE. PT STABLE, A/O X 3. OMID MID LINE INTACT AND PATENT, SALINE LOCKED. BED IN LOCKED AND LOW POSITION. CALL LIGHT WITHIN REACH. CARE ENDORSED TO MACHINE SETTER RN.
[2018-05-26 20:00] VITALS: BP 128/64
[2018-05-26] MEDS: MONTELUKAST SODIUM (10MG) 10 MG TABLET PO SCH (21:18)
[2018-05-26] MEDS: SENNOSIDES 8.6 MG TABLET PO SCH (21:18)
[2018-05-26] MEDS: INSULIN REGULAR, HUMAN 100 UNIT/ML 3 ML VIAL SQ PRN (21:31)
[2018-05-27] MEDS: VALPROATE 250 MG in IV D5W 100 ML IV SCH ×2 (03:54→12:37)
[2018-05-27 04:00] VITALS: BP 105/72
[2018-05-27] MEDS: PIPERACILLIN /TAZOBACTAM 3.375 G in IV D5W 50 ML IV SCH ×2 (05:13→11:36)
--- NOTE | 2018-05-27 06:47 | NUR ---
MS RN CLOSING NOTE PT IN BED ASLEEP EASILY AWAKEN, RESPIRATIONS EVEN AND UNLABORED. NOT IN DISTRESS, STABLE. NEEDS ATTENDED AND ANTICIPATED, KEPT DRY, CLEAN AND COMFORT. NO COMPLAIN OF PAIN. REPOSITION Q2H, OFFLOAD HEELS AND ELBOWS AT ALL TIMES. SAFETY MEASURES IN PLACE, BED IN LOW LOCKED POSITION, CALL LIGHT WITHIN EASY REACH. ENDORSE TO NEXT SHIFT CONTINUITY OF CARE.
[2018-05-27 07:46] LABS: BASOPHILS # (AUTO) 0.1 /CMM (0.0-0.2); BASOPHILS % (AUTO) 0.5 % (0.0-2.0); EOSINOPHILS % (AUTO) 0.6 % (0.0-6.0); HEMATOCRIT 33 % (33-45); HEMOGLOBIN 10.8 g/dL (11.5-14.8); LYMPHOCYTES # (AUTO) 2.8 /CMM (0.8-4.8); LYMPHOCYTES % (AUTO) 21.8 % (20.0-44.0); MEAN CORPUSCULAR HGB CONC 33 g/dl (31.0-36.0); MEAN CORPUSCULAR VOLUME 92 fL (82-100); MONOCYTES # (AUTO) 1.1 /CMM (0.1-1.30); MONOCYTES % (AUTO) 8.2 % (2.0-12.0); NEUTROPHILS % (AUTO) 68.9 % (43.0-81.0); PLATELET COUNT (AUTO) 249 /CMM (150-450); RED BLOOD CELL COUNT(AUTO) 3.61 MIL/uL (4.0-5.2); WHITE BLOOD COUNT (AUTO) 13.1 K/uL (4.3-11.0)
[2018-05-27] MEDS: PANTOPRAZOLE 40 MG TABLET.DR PO SCH (07:49)
[2018-05-27] MEDS: PIOGLITAZONE HCL 15 MG TABLET PO SCH (07:49)
[2018-05-27] MEDS: BLOOD SUGAR DIAGNOSTIC 1 EACH STRIP IN SCH ×2 (07:50→12:19)
[2018-05-27] MEDS: LEVOTHYROXINE INJ 100 MCG VIAL IV SCH (07:50)
[2018-05-27 07:52] LABS: CALCIUM, SERUM 8.4 mg/dL (8.5-10.1); CARBON DIOXIDE 37 mmol/L (21-32); CHLORIDE 103 mmol/L (98-107); CREATININE 0.7 mg/dL (0.6-1.3); GLUCOSE 112 mg/dL (74-106); POTASSIUM 3.2 mmol/L (3.5-5.1); SODIUM SERUM 145 mmol/L (136-145); UREA NITROGEN, BLOOD 21 mg/dL (7-18)
[2018-05-27 08:00] VITALS: BP 135/56
--- NOTE | 2018-05-27 08:57 | NUR ---
MS RN OPENING NOTE PT IN BED AWAKE SITTING UPRIGHT. RESPIRATIONS EVEN AND UNLABORED. NOT IN DISTRESS, STABLE. NEEDS ATTENDED AND ANTICIPATED, KEPT DRY, CLEAN AND COMFORT. NO COMPLAINT OF PAIN. REPOSITION Q2H, OFFLOAD HEELS AND ELBOWS AT ALL TIMES. SAFETY MEASURES IN PLACE, BED IN LOW LOCKED POSITION, CALL LIGHT WITHIN EASY REACH. WILL CONTINUE TO MONITOR. .
[2018-05-27 09:13] LABS: EOSINOPHILS % (MANUAL) 1 % (0-4); LYMPHOCYTES % (MANUAL) 18 % (16-48); MONOCYTES % (MANUAL) 11 % (0-11.0); NEUTROPHILS % (MANUAL) 70 (42-76)
[2018-05-27] MEDS: LISINOPRIL (10MG) 10 MG TABLET PO SCH (09:39)
[2018-05-27] MEDS: DOCUSATE SODIUM 250 MG CAPSULE PO SCH (09:39)
[2018-05-27] MEDS: AMIODARONE HCL 200 MG TABLET PO SCH (09:40)
[2018-05-27] MEDS: FLUTICASONE/VILANTEROL 1 EACH BLST.W.DEV IH SCH (10:04)
[2018-05-27] MEDS: ACETAMINOPHEN 325 MG TABLET PO PRN (11:36)
[2018-05-27] MEDS: POTASSIUM CHLORIDE 20 MEQ POWDER PACKET PO SCH ×2 (12:17→12:47)
[2018-05-27 16:00] VITALS: BP 119/60
--- NOTE | 2018-05-27 17:53 | NUR ---
MS PHOTOLITH OPERATOR NOTE PATIENT DISCHARGED PER MD ORDER VIA EMT AMBULANCE TRANSPORT. PATIENT STABLE, V/S WNL, NO SOB OR S/S OF DISTRESS. PATIENT D/C ON 3 LITERS O2 VIA NC, MIDLINE IV REMOVED. NO MONITOR ON PATIENT. PATIENT CLEANED, CHANGED AND DRY UPON D/C. REPORT GIVEN TO CARLOS LOPEZ AT [facility].
[2018-05-27] MEDS ORDERED: DIVALPROEX SODIUM 250 MG TABLET.DR PO SCH (21:00)
== END 2018-05-27 18:00 | DRG 177 ==
LOC: ER 09:19 → TELE 12:37 → TELE-TD 17:40 → MEDSG1 05-25 10:20
PROVIDERS: ADMIT Registered Nurse; ATTEND Registered Nurse
PROC: 05H533Z Insertion of Infusion Device into Right Subclavian Vein, Percutaneous Approach (ICD-10-PCS; principal; 2018-05-24)
DX: J69.0 Pneumonitis due to inhalation of food and vomit (principal); G92 Toxic encephalopathy; D68.59 Other primary thrombophilia; E03.9 Hypothyroidism, unspecified; G89.4 Chronic pain syndrome; E11.9 Type 2 diabetes mellitus without complications; Z51.5 Encounter for palliative care; F03.90 Unspecified dementia, unspecified severity, without behavioral disturbance, psychotic disturbance, mood disturbance, and anxiety; R79.89 Other specified abnormal findings of blood chemistry; I10 Essential (primary) hypertension; D64.9 Anemia, unspecified; I48.91 Unspecified atrial fibrillation; Z79.01 Long term (current) use of anticoagulants; I70.90 Unspecified atherosclerosis; E78.5 Hyperlipidemia, unspecified; K21.9 Gastro-esophageal reflux disease without esophagitis; M19.90 Unspecified osteoarthritis, unspecified site; E66.01 Morbid (severe) obesity due to excess calories; Z68.36 Body mass index [BMI] 36.0-36.9, adult; I25.10 Atherosclerotic heart disease of native coronary artery without angina pectoris; Z96.659 Presence of unspecified artificial knee joint; Z66 Do not resuscitate; E83.41 Hypermagnesemia; J44.9 Chronic obstructive pulmonary disease, unspecified
CPT/HCPCS: 36415; 70450-TC; 71045-TC; 80048-TC; 80061-TC; 80076-TC; 80164-TC; 81000-TC; 82962-TC; 83605-TC; 83735-TC; 83880; 84100-TC; 84443-TC; 84484-TC; 85025-TC; 85730-TC; 87040-TC; 87081-TC; 87086-TC; 92526; 92611-TC; 94799-TC; C9113; G0378; J1815; J1940; J2543; J3480; J3490; J7040; J7050; J7060

== ENCOUNTER 2018-07-11 09:00 | Inpatient (IN) | payer MEDICARE, OTHER ==
[~2018-07-11] VITALS: Ht 149.9 cm; Wt 88.9 kg
[~2018-07-11 09:00] MED LIST changes: -BISA-79 PO; +BISA10SU11 RC; -OXYC-128 PO
--- NOTE | 2018-07-11 09:10 | NUR ---
BIBRA86, FROM [facility], FEVER STARTED THIS MORNING 100.4 PER REPORT, NO MEDS GIVEN, ALSO C/O COUGH AND CONGESTION AND GENERALIZED BODY PAIN. TO ER BED 9,AOX 2, RESPIRATIONS EVEN AND UNLABORED, HOOKED TO MONITOR, CHANGED TO GOWN, O2 SAT AT RA 90%, HOOKED TO O2 AT 2LPM VIA NC, PROVIDED WITH WARM BLANKET, AWAITING MD PEDROZA.
--- NOTE | 2018-07-11 09:11 | NUR ---
DR SORIANO AT BEDSIDE
--- NOTE | 2018-07-11 09:15 | NUR ---
IV PERIPHERAL LINE ACCESS AT RAC 20G. BLOOD DRAWN AND SENT TO LAB
[2018-07-11 09:22] LABS: BASOPHILS # (AUTO) 0.1 /CMM (0.0-0.2); BASOPHILS % (AUTO) 0.4 % (0.0-2.0); EOSINOPHILS % (AUTO) 0.3 % (0.0-6.0); HEMATOCRIT 38 % (33-45); HEMOGLOBIN 12.5 g/dL (11.5-14.8); LYMPHOCYTES # (AUTO) 2.2 /CMM (0.8-4.8); LYMPHOCYTES % (AUTO) 14.6 % (20.0-44.0); MEAN CORPUSCULAR HGB CONC 33 g/dl (31.0-36.0); MEAN CORPUSCULAR VOLUME 92 fL (82-100); MONOCYTES # (AUTO) 1.4 /CMM (0.1-1.30); MONOCYTES % (AUTO) 9.4 % (2.0-12.0); NEUTROPHILS # (AUTO) 11.3 /CMM (1.8-8.9); NEUTROPHILS % (AUTO) 75.3 % (43.0-81.0); PLATELET COUNT (AUTO) 183 /CMM (150-450); WHITE BLOOD COUNT (AUTO) 14.9 K/uL (4.3-11.0)
[2018-07-11 09:26] LABS: CALCIUM, SERUM 8.6 mg/dL (8.5-10.1); CARBON DIOXIDE 31 mmol/L (21-32); CHLORIDE 105 mmol/L (98-107); CREATININE 0.9 mg/dL (0.6-1.3); GLUCOSE 122 mg/dL (74-106); POTASSIUM 4.4 mmol/L (3.5-5.1); SODIUM SERUM 142 mmol/L (136-145); UREA NITROGEN, BLOOD 14 mg/dL (7-18)
[2018-07-11] MEDS ORDERED: LORA-259 PO (09:27)
[2018-07-11] MEDS ORDERED: IPRA0.2S9 IH (09:27)
--- NOTE | 2018-07-11 09:27 | NUR ---
URINE SPECIMEN COLLECTED VIA IN AND OUT CATHETER AND SENT TO LAB.
[2018-07-11] MEDS ORDERED: IV NS 0.9% 500 ML BAG IV ONE (09:30)
[2018-07-11] MEDS ORDERED: CEFEPIME 1 GM in IV D5W 50 ML IV ONE (09:30)
[2018-07-11] MEDS ORDERED: VANCOMYCIN 1 GM in IV D5W 250 ML IV ONE (09:30)
[2018-07-11 09:32] LABS: ALANINE AMINOTRANSFERASE 11 U/L (12-78); ALBUMIN 2.8 g/dL (3.4-5.0); ALKALINE PHOSPHATASE 63 U/L (46-116); ASPARTATE AMINOTRANSFERASE 12 U/L (15-37); BILIRUBIN,DIRECT 0.2 mg/dL (0.0-0.2); BILIRUBIN,TOTAL 0.5 mg/dL (0.2-1.0); TOTAL PROTEIN, SERUM 7.1 g/dL (6.4-8.2)
[2018-07-11] MEDS ORDERED: CALC568P PO (09:38)
[2018-07-11] MEDS ORDERED: ACET650T10 PO (09:38)
[2018-07-11 09:39] LABS: APPEARANCE,URINE Clear (CLEAR); BILIRUBIN,URINE Negative (NEGATIVE); BLOOD, URINE Negative Ery/uL (NEGATIVE); COLOR,URINE Yellow (YELLOW); KETONES,URINE Trace (NEGATIVE); LEUKOCYTE ESTERASE ,URINE Negative (NEGATIVE); NITRITE, URINE Negative (NEGATIVE); PROTEIN,URINE Negative (NEGATIVE); UGLUCOSE Negative (NEGATIVE)
[2018-07-11] MEDS ORDERED: LISI10TA5 PO (09:44)
[2018-07-11] MEDS ORDERED: CHOL200026 PO (09:44)
[2018-07-11 09:51] LABS: BACTERIA,URINE None seen /HPF (None Seen); SQUAMOUS EPITHELIAL CELL,UR Few /HPF (None Seen)
--- NOTE | 2018-07-11 10:01 | NUR ---
NATACHA PAGED, AWAITING CALLBACK FROM CHANDA
--- NOTE | 2018-07-11 10:04 | NUR ---
CALLED SAMANTHA NURSING RECREATIONAL SPECIALIST FOR BED
--- NOTE | 2018-07-11 10:19 | NUR ---
DR ARMAS AT BEDSIDE
--- NOTE | 2018-07-11 10:37 | NUR ---
REPORT GIVEN TO CHLOE GONZALEZ FOR ADMISSION
--- NOTE | 2018-07-11 10:45 | NUR ---
TRANSFERRED TO MED-SURG UNIT VIA GURNY BY EMT.
--- NOTE | 2018-07-11 10:55 | NUR ---
MS REGISTERED PHLEBOTOMIST PART TIME NOTES Received Patient comfortable in bed from ER via [facility]. A/O x 3. VS stable with no acute distress. Breathing even and unlabored on 2LPM via NC. O2 Sat 93%. Denies pain. 20g PIV on RAC clean, dry, intact and flushing well. Safety precautions in place. Bed locked and set to lowest position with side rails x 2 up. All needs rendered at this time. Will continue to monitor.
[2018-07-11] MEDS ORDERED: IV NS 0.9% 1,000 ML IV PRN (11:40)
[2018-07-11 12:00] VITALS: BP 139/67
[2018-07-11] MEDS: LISINOPRIL (10MG) 10 MG TABLET PO SCH (12:00)
[2018-07-11] MEDS ORDERED: MAGNESIUM HYDROXIDE 30 ML UDC PO PRN ×2 (12:00)
[2018-07-11] MEDS ORDERED: Z GUARD REMEDY 2 OZ OINT TP PRN (12:00)
[2018-07-11] MEDS ORDERED: ONDANSETRON HCL/PF 4 MG/2 ML VIAL IVP PRN (12:00)
[2018-07-11] MEDS ORDERED: HYDROCODONE/APAP 5/325MG 1 EACH TABLET PO PRN (12:00)
[2018-07-11] MEDS: AMIODARONE HCL 200 MG TABLET PO SCH (12:00)
[2018-07-11] MEDS ORDERED: ZOLPIDEM TARTRATE 5 MG TABLET PO PRN (12:00)
[2018-07-11] MEDS ORDERED: ACETAMINOPHEN 325 MG TABLET PO PRN (12:00)
[2018-07-11] MEDS ORDERED: BISACODYL SUPP (10 MG) 10 MG/SUPP.RECT SUPP.RECT RC PRN (12:00)
[2018-07-11] MEDS ORDERED: MAG HYDROX/AL HYDROX/SIMETH 30 ML UDC PO PRN (12:00)
[2018-07-11] MEDS ORDERED: IPRATROPIUM NEB FS 0.5 MG/2.5 ML AMPUL.NEB IH PRN (12:00)
[2018-07-11] MEDS: SENNOSIDES 8.6 MG TABLET PO SCH ×2 (13:18→22:04)
[2018-07-11] MEDS: DOCUSATE SODIUM 250 MG CAPSULE PO SCH (13:18)
[2018-07-11] MEDS: PIOGLITAZONE HCL 15 MG TABLET PO SCH (13:18)
[2018-07-11] MEDS: DIVALPROEX SODIUM 125 MG CAP.SPRINK PO SCH ×2 (13:37→17:50)
[2018-07-11 16:00] VITALS: BP 116/60
[2018-07-11] MEDS: FLUTICASONE/VILANTEROL 1 EACH BLST.W.DEV IH SCH (17:49)
[2018-07-11] MEDS: QUETIAPINE FUMARATE 25 MG TABLET PO SCH (17:49)
[2018-07-11] MEDS: RIVAROXABAN 10 MG TABLET PO SCH (17:50)
--- NOTE | 2018-07-11 19:50 | NUR ---
RN OPENING NOTES RECEIVED REPORT FROM DAYSHIFT RNCHLOE. FOUND Pt ASLEEP IN BED. NO S/S OF ACUTE DISTRESS OR SOB NOTED. RESPIRATIONS EVEN AND UNLABORED. EQUAL CHEST RISE AND FALL. Pt IS A/OX2-3, VERBAL, ABLE TO MAKE NEEDS KNOWN. IV ACCESS ON RAC #20G, NS @75ML/HR . SAFETY MEASURES IN PLACE. BED LOW, LOCKED, HOB ELEVATED, SIDE RAILS UP, CALL LIGHT AND BEDSIDE TABLE WITHIN REACH. BED ALARM ON. WILL CONTINUE TO MONITOR Pt's CONDITION AND SAFETY THROUGHOUT THE NIGHT.
[2018-07-11 20:00] VITALS: BP 106/47
--- NOTE | 2018-07-11 20:01 | NUR ---
MS RN CLOSING NOTES Patient comfortable and asleep in bed. A/O x 3. VS stable with no acute distress. Breathing even and unlabored on room air. O2 Sat 93-95%. Denies pain. 20g PIV on RAC clean, dry, intact and flushing well. IVF NS running at 75ml/hr. Skin assessed and pictures taken and placed in chart. Safety precautions in place. Bed locked and set to lowest position with side rails x 2 up. All needs rendered at this time. Will endorse plan of care to oncoming shift.
[2018-07-11] MEDS: CEFTRIAXONE 1 G in IV D5W 50 ML IV SCH (21:44)
[2018-07-11] MEDS: SIMVASTATIN 20 MG TABLET PO SCH (22:04)
[2018-07-11] MEDS: MONTELUKAST SODIUM (10MG) 10 MG TABLET PO SCH (22:04)
--- NOTE | 2018-07-12 06:04 | NUR ---
RN NOTES INFORMED DEVELOPMENT AND HOUSING DIRECTOR HOSPITALIST CHRIS OF DNR POLST IN Pt's CHART. GAVE VERBAL ORDER TO PLACE DNR ORDER FOR Pt.
[2018-07-12 06:35] LABS: BASOPHILS % (AUTO) 0.3 % (0.0-2.0); EOSINOPHILS % (AUTO) 0.7 % (0.0-6.0); HEMATOCRIT 38 % (33-45); HEMOGLOBIN 12.2 g/dL (11.5-14.8); LYMPHOCYTES # (AUTO) 2.2 /CMM (0.8-4.8); LYMPHOCYTES % (AUTO) 18.5 % (20.0-44.0); MEAN CORPUSCULAR HGB CONC 32 g/dl (31.0-36.0); MEAN CORPUSCULAR VOLUME 93 fL (82-100); MONOCYTES # (AUTO) 1.2 /CMM (0.1-1.30); MONOCYTES % (AUTO) 10.4 % (2.0-12.0); NEUTROPHILS # (AUTO) 8.4 /CMM (1.8-8.9); NEUTROPHILS % (AUTO) 70.1 % (43.0-81.0); PLATELET COUNT (AUTO) 151 /CMM (150-450); RED BLOOD CELL COUNT(AUTO) 4.05 MIL/uL (4.0-5.2)
--- NOTE | 2018-07-12 06:45 | NUR ---
RN CLOSING NOTES NO SIGNIFICANT CHANGES IN Pt's CONDITION. Pt REMAINS STABLE PER BASELINE. NO S/S OF ACUTE DISTRESS OR SOB NOTED DURING THE NIGHT. Pt IS AWAKE IN BED. RESPIRATIONS EVEN AND UNLABORED. ALL NEEDS MET AND ATTENDED TO. SAFETY MEASURES IN PLACE. BED LOW, LOCKED, HOB ELEVATED, SIDE RAILS UP, CALL LIGHT AND BEDSIDE TABLE WITHIN REACH.
[2018-07-12 07:07] LABS: ALANINE AMINOTRANSFERASE 9 U/L (12-78); ALBUMIN 2.5 g/dL (3.4-5.0); ALKALINE PHOSPHATASE 68 U/L (46-116); ASPARTATE AMINOTRANSFERASE 10 U/L (15-37); BILIRUBIN,TOTAL 0.4 mg/dL (0.2-1.0); CALCIUM, SERUM 8.7 mg/dL (8.5-10.1); CARBON DIOXIDE 28 mmol/L (21-32); CHLORIDE 105 mmol/L (98-107); CREATININE 0.7 mg/dL (0.6-1.3); GLUCOSE 87 mg/dL (74-106); MAGNESIUM 2.1 mg/dL (1.8-2.4); PHOSPHORUS 3.7 mg/dL (2.5-4.9); POTASSIUM 4.2 mmol/L (3.5-5.1); SODIUM SERUM 142 mmol/L (136-145); TOTAL PROTEIN, SERUM 6.8 g/dL (6.4-8.2); UREA NITROGEN, BLOOD 16 mg/dL (7-18)
[2018-07-12 07:21] LABS: CHOLESTEROL 131 mg/dL (<200); HDL CHOLESTEROL 58 mg/dL (40-60); LDL 58 mg/dL (0-99); THYROID STIMULATING HORMONE 2.026 uIU/mL (0.358-3.74); TRIGLYCERIDES 76 mg/dL (30-150)
--- NOTE | 2018-07-12 07:30 | NUR ---
m/s work distributor: initial assessment received pt in bed awake, a/ox2 with forgetfulness and disorientation to place and situation. reality orientation provided prn. no c/o pain or any discomfort. iv h/l at this time. will continue to monitor.
[2018-07-12 08:00] VITALS: BP 132/64
[2018-07-12] MEDS: LEVOTHYROXINE SODIUM 100 MCG TABLET PO SCH (08:00)
--- NOTE | 2018-07-12 08:13 | NUR ---
m/s can dryer: md visit seen and examined by dr. freeman with new orders. orders acknowledged. for d'c planning in 1-2 days, pt verbalized understanding. hold iv fluids for now per dr. freeman.
[2018-07-12] MEDS: DIVALPROEX SODIUM 125 MG CAP.SPRINK PO SCH ×3 (08:55→16:51)
[2018-07-12] MEDS: PIOGLITAZONE HCL 15 MG TABLET PO SCH (08:55)
[2018-07-12] MEDS: LISINOPRIL (10MG) 10 MG TABLET PO SCH (08:56)
[2018-07-12] MEDS: QUETIAPINE FUMARATE 25 MG TABLET PO SCH ×2 (08:57→16:51)
[2018-07-12] MEDS: AMIODARONE HCL 200 MG TABLET PO SCH (08:57)
[2018-07-12] MEDS: FLUTICASONE/VILANTEROL 1 EACH BLST.W.DEV IH SCH (08:58)
[2018-07-12] MEDS: DOCUSATE SODIUM 250 MG CAPSULE PO SCH (08:58)
--- NOTE | 2018-07-12 10:00 | NUR ---
m/s wastewater operator: notes resting comfortable in bed with no distress noted. will continue to monitor.
--- NOTE | 2018-07-12 13:00 | NUR ---
m/s u.s. senator: notes pt restless m/b screaming, disrobing, and removing lines. reality orientation provided prn. ativan 0.5mg po given as ordered. instructed to call for assistance. will continue to monitor.
[2018-07-12] MEDS: LORAZEPAM 1 MG TABLET PO PRN (13:01)
[2018-07-12] MEDS: RIVAROXABAN 10 MG TABLET PO SCH (16:52)
--- NOTE | 2018-07-12 16:55 | NUR ---
m/s polysomnographer: plastic surgeon consult seen and examined by dr. willett at this time.
[2018-07-12 18:07] LABS: IRON, SERUM 21 ug/dl (50-175); TOTAL IRON BINDING CAPACITY 163 ug/dl (250-450)
--- NOTE | 2018-07-12 18:30 | NUR ---
m/s grommet man: notes resting comfortable in bed. no acute distress noted. needs attended. will continue to monitor.
--- NOTE | 2018-07-12 20:00 | NUR ---
MS RN NOTES RECEIVED PATIENT ASLEEP IN BED WITH NO DISTRESS NOTED. CALL LIGHT WITHIN REACH. PERIPHERAL LINE INTACT, PATENT, AND SALINE LOCKED. NO C/O PAIN OR DISCOMFORT. BED IN LOW LOCK SETTING. BED ALARM ON AND FUNCTIONING PROPERLY. ROOM FREE OF CLUTTER AND BELONGINGS KEPT NEAR BEDSIDE. WILL CONTINUE TO MONITOR.
[2018-07-12 20:18] VITALS: BP 116/56
[2018-07-12] MEDS: CEFTRIAXONE 1 G in IV D5W 50 ML IV SCH (21:12)
[2018-07-12] MEDS: SENNOSIDES 8.6 MG TABLET PO SCH (21:12)
[2018-07-12] MEDS: MONTELUKAST SODIUM (10MG) 10 MG TABLET PO SCH (21:12)
[2018-07-12] MEDS: SIMVASTATIN 20 MG TABLET PO SCH (21:12)
--- NOTE | 2018-07-13 06:25 | NUR ---
MS RN NOTES PATIENT ASLEEP IN BED WITH NO DISTRESS NOTED. CALL LIGHT WITHIN REACH. ALL DUE MEDS GIVEN ORDERED WITH NO ASE NOTED. NO C/O PAIN OR DISCOMFORT. PERIPHERAL LINE INTACT AND PATENT. BED IN LOW LOCK SETTING. BED ALARM ON AND FUNCTIONING PROPERLY. ALL BELONGINGS KEPT NEAR BEDSIDE. WILL ENDORSE TO ONCOMING SHIFT.
[2018-07-13 07:33] LABS: BASOPHILS % (AUTO) 0.3 % (0.0-2.0); EOSINOPHILS % (AUTO) 0.8 % (0.0-6.0); HEMATOCRIT 34 % (33-45); HEMOGLOBIN 11.1 g/dL (11.5-14.8); LYMPHOCYTES # (AUTO) 2.2 /CMM (0.8-4.8); LYMPHOCYTES % (AUTO) 21.9 % (20.0-44.0); MEAN CORPUSCULAR HGB CONC 33 g/dl (31.0-36.0); MEAN CORPUSCULAR VOLUME 93 fL (82-100); MONOCYTES # (AUTO) 1.3 /CMM (0.1-1.30); MONOCYTES % (AUTO) 13.5 % (2.0-12.0); NEUTROPHILS # (AUTO) 6.3 /CMM (1.8-8.9); NEUTROPHILS % (AUTO) 63.5 % (43.0-81.0); PLATELET COUNT (AUTO) 156 /CMM (150-450); RED BLOOD CELL COUNT(AUTO) 3.67 MIL/uL (4.0-5.2)
[2018-07-13 07:42] LABS: CARBON DIOXIDE 29 mmol/L (21-32); CHLORIDE 107 mmol/L (98-107); CREATININE 0.7 mg/dL (0.6-1.3); GLUCOSE 91 mg/dL (74-106); POTASSIUM 4.1 mmol/L (3.5-5.1); SODIUM SERUM 143 mmol/L (136-145); UREA NITROGEN, BLOOD 22 mg/dL (7-18)
[2018-07-13] MEDS: LEVOTHYROXINE SODIUM 100 MCG TABLET PO SCH (07:53)
[2018-07-13 08:00] VITALS: BP 135/62
--- NOTE | 2018-07-13 08:00 | NUR ---
MS RN OPENING NOTES Received Patient comfortable and resting in bed. A/O x 2 with episodes of forgetfulness. VS stable with no acute distress. Breathing even and unlabored on 2LPM via NC SPO2 98%. Denies pain. 20g PIV on RAC clean, dry, intact and flushing well. Safety precautions in place. Bed locked and set to lowest position with side rails x 2 up. All needs rendered at this time. Will continue to monitor.
[2018-07-13] MEDS: DOCUSATE SODIUM 250 MG CAPSULE PO SCH (08:44)
[2018-07-13] MEDS: PIOGLITAZONE HCL 15 MG TABLET PO SCH (08:45)
[2018-07-13] MEDS: AMIODARONE HCL 200 MG TABLET PO SCH (08:45)
[2018-07-13] MEDS: DIVALPROEX SODIUM 125 MG CAP.SPRINK PO SCH ×3 (08:46→18:08)
[2018-07-13] MEDS: FLUTICASONE/VILANTEROL 1 EACH BLST.W.DEV IH SCH (08:46)
[2018-07-13] MEDS: LISINOPRIL (10MG) 10 MG TABLET PO SCH (08:46)
[2018-07-13] MEDS: QUETIAPINE FUMARATE 25 MG TABLET PO SCH ×2 (08:46→18:08)
[2018-07-13 16:00] VITALS: BP 130/63
[2018-07-13] MEDS: RIVAROXABAN 10 MG TABLET PO SCH (18:09)
--- NOTE | 2018-07-13 19:15 | NUR ---
MS RN OPENING PM NOTES BEDSIDE REPORT RECIEVED FROM CHLOE GONZALEZ. Patient comfortable and resting in bed. A/O x 2 with episodes of forgetfulness PER REPORT. Breathing even and unlabored on 2LPM Denies pain. 20g PIV on RAC clean, dry, intact and flushing well. Safety precautions in place. Bed locked and set to lowest position with side rails x 2 up.
--- NOTE | 2018-07-13 19:41 | NUR ---
MS RN CLOSING NOTES Patient comfortable and resting in bed. A/O x 2 with episodes of forgetfulness. VS stable with no acute distress. Breathing even and unlabored on 2LPM via NC SPO2 98%. Denies pain. 20g PIV on RAC clean, dry, intact and flushing well. Safety precautions in place. Bed locked and set to lowest position with side rails x 2 up. All needs rendered at this time. Will endorse plan of care to oncoming shift.
[2018-07-13 20:00] VITALS: BP 132/67
[2018-07-13] MEDS: LORAZEPAM 1 MG TABLET PO PRN (20:43)
[2018-07-13] MEDS: CEFTRIAXONE 1 G in IV D5W 50 ML IV SCH (20:43)
[2018-07-13] MEDS: MONTELUKAST SODIUM (10MG) 10 MG TABLET PO SCH (21:08)
[2018-07-13] MEDS: SENNOSIDES 8.6 MG TABLET PO SCH (21:08)
--- NOTE | 2018-07-14 00:57 | NUR ---
TYELENOL PRN PATIENT REPEATEDLY MOANING OUT. "IVY HAYNES TROUT." WHEN ASKED ABOUT THIS PATIENT STATES OH I WAS JUST HAVING A BAD DREAM. PATIENT REPORTS MILD DISCOMFORT LAYING IN BED 3 OUT OF 10. TYELENOL ADMINISTERED PER PRN ORDERS.
[2018-07-14 07:25] LABS: CALCIUM, SERUM 8.5 mg/dL (8.5-10.1); CARBON DIOXIDE 27 mmol/L (21-32); CHLORIDE 107 mmol/L (98-107); CREATININE 0.7 mg/dL (0.6-1.3); GLUCOSE 98 mg/dL (74-106); POTASSIUM 4.3 mmol/L (3.5-5.1); SODIUM SERUM 142 mmol/L (136-145); UREA NITROGEN, BLOOD 20 mg/dL (7-18)
[2018-07-14 08:00] VITALS: BP 138/55
--- NOTE | 2018-07-14 08:00 | NUR ---
MS RN OPENING NOTES Received Patient comfortable asleep in bed. A/O x 2 with episodes of forgetfulness. VS stable with no acute distress. Breathing even and unlabored on room air with no respiratory distress. Denies pain. 22g PIV on RFA clean, dry, intact and flushing well. Safety precautions in place. Bed locked and set to lowest position with side rails x 2 up. All needs rendered at this time. Will continue to monitor.
[2018-07-14] MEDS: LEVOTHYROXINE SODIUM 100 MCG TABLET PO SCH (09:27)
[2018-07-14] MEDS: FLUTICASONE/VILANTEROL 1 EACH BLST.W.DEV IH SCH (09:28)
[2018-07-14] MEDS: AMIODARONE HCL 200 MG TABLET PO SCH (09:28)
[2018-07-14] MEDS: DOCUSATE SODIUM 250 MG CAPSULE PO SCH (09:28)
[2018-07-14] MEDS: PIOGLITAZONE HCL 15 MG TABLET PO SCH (09:28)
[2018-07-14] MEDS: LISINOPRIL (10MG) 10 MG TABLET PO SCH (09:29)
[2018-07-14] MEDS: QUETIAPINE FUMARATE 25 MG TABLET PO SCH ×2 (09:29→16:48)
[2018-07-14] MEDS: DIVALPROEX SODIUM 125 MG CAP.SPRINK PO SCH ×3 (09:29→16:47)
[2018-07-14 10:28] LABS: BASOPHILS % (AUTO) 0.2 % (0.0-2.0); HEMATOCRIT 38 % (33-45); HEMOGLOBIN 12.3 g/dL (11.5-14.8); LYMPHOCYTES # (AUTO) 1.5 /CMM (0.8-4.8); LYMPHOCYTES % (AUTO) 18.7 % (20.0-44.0); MEAN CORPUSCULAR HGB CONC 32 g/dl (31.0-36.0); MEAN CORPUSCULAR VOLUME 93 fL (82-100); MONOCYTES # (AUTO) 1.1 /CMM (0.1-1.30); MONOCYTES % (AUTO) 13.9 % (2.0-12.0); NEUTROPHILS # (AUTO) 5.3 /CMM (1.8-8.9); NEUTROPHILS % (AUTO) 66.2 % (43.0-81.0); PLATELET COUNT (AUTO) 206 /CMM (150-450); RED BLOOD CELL COUNT(AUTO) 4.08 MIL/uL (4.0-5.2); WHITE BLOOD COUNT (AUTO) 8.1 K/uL (4.3-11.0)
[2018-07-14] MEDS ORDERED: SOD FERRIC GLUC 125 MG in IV NS 0.9% 100 ML IV SCH (14:00)
[2018-07-14 16:00] VITALS: BP 140/60
[2018-07-14] MEDS: RIVAROXABAN 10 MG TABLET PO SCH (16:49)
--- NOTE | 2018-07-14 19:00 | NUR ---
MS FORM SETTER METAL ROAD FORMS NOTES Patient discharged to [facility] at this time. A/O x 2 with episodes of confusion and forgetfulness. VS stable with no acute distress. Breathing even and unlabored on room air with no respiratory distress. Patient refused skin assessment pictures and stated, "I just want to go home!" Provided medication reconciliation and discharge orders to Ambulance transport. Report given to Bridget GONZALEZ. Patient had no belongings upon admission. Patient will follow PCP from SNF. Patient picked up via Ambulance.
== END 2018-07-14 19:00 | DRG 291 ==
LOC: ER 09:02 → MED 11:10
PROVIDERS: ADMIT Internal Medicine; ATTEND Internal Medicine
DX: I11.0 Hypertensive heart disease with heart failure (principal); G93.41 Metabolic encephalopathy; N39.0 Urinary tract infection, site not specified; D68.59 Other primary thrombophilia; N17.9 Acute kidney failure, unspecified; I25.10 Atherosclerotic heart disease of native coronary artery without angina pectoris; D63.8 Anemia in other chronic diseases classified elsewhere; I50.33 Acute on chronic diastolic (congestive) heart failure; E11.65 Type 2 diabetes mellitus with hyperglycemia; E78.5 Hyperlipidemia, unspecified; F03.90 Unspecified dementia, unspecified severity, without behavioral disturbance, psychotic disturbance, mood disturbance, and anxiety; M19.90 Unspecified osteoarthritis, unspecified site; Z79.51 Long term (current) use of inhaled steroids; K21.9 Gastro-esophageal reflux disease without esophagitis; E03.9 Hypothyroidism, unspecified; F41.9 Anxiety disorder, unspecified; Z79.899 Other long term (current) drug therapy; Z79.01 Long term (current) use of anticoagulants; G89.4 Chronic pain syndrome; E11.9 Type 2 diabetes mellitus without complications; E66.01 Morbid (severe) obesity due to excess calories; Z74.09 Other reduced mobility; I48.91 Unspecified atrial fibrillation; I70.0 Atherosclerosis of aorta; J44.9 Chronic obstructive pulmonary disease, unspecified; Z87.01 Personal history of pneumonia (recurrent); L30.4 Erythema intertrigo; Z96.659 Presence of unspecified artificial knee joint
CPT/HCPCS: 36415; 71045-TC; 80048-TC; 80053-TC; 80061-TC; 80076-TC; 81000-TC; 82378; 82728-TC; 83540-TC; 83605-TC; 83735-TC; 84100-TC; 84443-TC; 84484-TC; 85025-TC; 85730-TC; 87040-TC; 87081-TC; 87086-TC; G0378; J0692; J0696; J2916; J3370; J7030; J7040; J7060

== ENCOUNTER 2018-11-02 18:41 | Inpatient (IN) | payer MEDICARE, OTHER ==
[~2018-11-02] VITALS: Ht 154.9 cm; Wt 92.8 kg
[~2018-11-02 18:41] MED LIST changes: -ACET325T53 PO; +ACET650T10 PO; +CALC568P PO; -CHOL100040 PO; +CHOL200026 PO; +LORA-259 PO; -LORA0.5T PO; -SIMV20TA2 PO
--- NOTE | 2018-11-02 18:46 | NUR ---
"SENT BY PMD FOR GEROPSYCH ADMISSION, PARANOID AND HALLUCINATIONS PER STAFF " pt aaox2-3, pt on monitor, vss ,nad noted, pending md menchaca
[2018-11-02 19:05] LABS: BASOPHILS % (AUTO) 0.6 % (0.0-2.0); EOSINOPHILS % (AUTO) 1.2 % (0.0-6.0); HEMATOCRIT 38 % (33-45); HEMOGLOBIN 12.3 g/dL (11.5-14.8); LYMPHOCYTES # (AUTO) 3.2 /CMM (0.8-4.8); LYMPHOCYTES % (AUTO) 42.8 % (20.0-44.0); MEAN CORPUSCULAR HGB CONC 32 g/dl (31.0-36.0); MEAN CORPUSCULAR VOLUME 93 fL (82-100); MONOCYTES # (AUTO) 0.6 /CMM (0.1-1.30); MONOCYTES % (AUTO) 7.6 % (2.0-12.0); NEUTROPHILS # (AUTO) 3.6 /CMM (1.8-8.9); NEUTROPHILS % (AUTO) 47.8 % (43.0-81.0); PLATELET COUNT (AUTO) 180 /CMM (150-450); RED BLOOD CELL COUNT(AUTO) 4.07 MIL/uL (4.0-5.2); WHITE BLOOD COUNT (AUTO) 7.5 K/uL (4.3-11.0)
[2018-11-02 19:41] LABS: CALCIUM, SERUM 8.8 mg/dL (8.5-10.1); CARBON DIOXIDE 27 mmol/L (21-32); CHLORIDE 104 mmol/L (98-107); GLUCOSE 131 mg/dL (74-106); POTASSIUM 4.4 mmol/L (3.5-5.1); SODIUM SERUM 140 mmol/L (136-145); UREA NITROGEN, BLOOD 18 mg/dL (7-18)
[2018-11-02 19:47] LABS: ALANINE AMINOTRANSFERASE 8 U/L (12-78); ALBUMIN 2.7 g/dL (3.4-5.0); ALCOHOL, BLOOD < 3 mg/dL (0-0); ALKALINE PHOSPHATASE 65 U/L (46-116); BILIRUBIN,DIRECT 0.1 mg/dL (0.0-0.2); BILIRUBIN,TOTAL 0.2 mg/dL (0.2-1.0); SALICYLATE 1.3 mg/dL (2.8-20.0); TOTAL PROTEIN, SERUM 6.7 g/dL (6.4-8.2)
[2018-11-02 19:49] LABS: ACETAMINOPHEN < 2 ug/ml (10-30)
[2018-11-02 19:57] LABS: ASPARTATE AMINOTRANSFERASE 11 U/L (15-37)
[2018-11-02 20:30] LABS: APPEARANCE,URINE SLIGHTLY HAZY (CLEAR); BILIRUBIN,URINE Negative (NEGATIVE); BLOOD, URINE Negative Ery/uL (NEGATIVE); COLOR,URINE Yellow (YELLOW); KETONES,URINE Negative (NEGATIVE); LEUKOCYTE ESTERASE ,URINE Small (NEGATIVE); NITRITE, URINE Positive (NEGATIVE); PROTEIN,URINE Negative (NEGATIVE); UGLUCOSE Negative (NEGATIVE); UROBILINOGEN,URINE 0.2 EU/dL (0.2)
[2018-11-02] MEDS ORDERED: Medication Not On Formulary EA (Acetaminophen 650 MG) PO PRN (20:30)
[2018-11-02] MEDS ORDERED: MAGNESIUM HYDROXIDE 30 ML UDC PO PRN ×2 (20:30→22:30)
[2018-11-02] MEDS ORDERED: NA PHOS,M-B/NA PHOS,DI-BA 1 EA ENEMA RC PRN (20:30)
[2018-11-02] MEDS ORDERED: IPRATROPIUM NEB FS 0.5 MG/2.5 ML AMPUL.NEB IH PRN (20:30)
[2018-11-02] MEDS ORDERED: BISACODYL SUPP (10 MG) 10 MG/SUPP.RECT SUPP.RECT RC PRN (20:30)
[2018-11-02 21:04] LABS: BACTERIA,URINE Many /HPF (None Seen); RBC,URINE 0-2 /HPF (0-2); SQUAMOUS EPITHELIAL CELL,UR Few /HPF (None Seen)
--- NOTE | 2018-11-02 21:29 | NUR ---
report given to jennifer mitchell for fausto; pt will be transported to gps
--- NOTE | 2018-11-02 22:00 | NUR ---
GPS RN NOTES: ATTEMPTED TO CALL PT. DAUGHTER GUS ALVARENGA # [phone] AND HEATHER GARCIA # [phone] , BUT UNSUCCESSFUL, MESSAGES LEFT.
[2018-11-02] MEDS: MONTELUKAST SODIUM (10MG) 10 MG TABLET PO SCH (22:22)
[2018-11-02] MEDS: SENNOSIDES 8.6 MG TABLET PO SCH (22:23)
[2018-11-02] MEDS ORDERED: INSULIN REGULAR, HUMAN 100 UNIT/ML 3 ML VIAL SQ PRN (22:30)
[2018-11-02] MEDS ORDERED: ACETAMINOPHEN 325 MG TABLET PO PRN (22:30)
[2018-11-02] MEDS ORDERED: MAG HYDROX/AL HYDROX/SIMETH 30 ML UDC PO PRN (22:30)
[2018-11-02] MEDS ORDERED: DEXTROSE 50%-WATER 50 ML DISP.SYRIN IV PRN (22:30)
[2018-11-02 22:59] VITALS: BP 110/63
[2018-11-02] MEDS ORDERED: BLOOD SUGAR DIAGNOSTIC 1 EACH STRIP IN ONE (23:00)
[2018-11-02] MEDS: LORAZEPAM 0.5 MG TABLET PO PRN (23:22)
--- NOTE | 2018-11-02 23:30 | NUR ---
ADMISSION NOTES: ADMITTED THIS 88Y/O FEMALE PATIENT ADMIT FROM [facility] ER/INTIALLY FROM [facility] , PT ADMITTED TO GPS ON VOLUNTARY STATUS UNDER DR. SERA CRUZ, FOR PT. INCREASED AGITATION, SCREAMING YELLING AT STAFF AND VERBALLY ABUSIVE ,UPON FACE TO FACE ASSESSMENT PATIENT IS A&O X ,2 DEPESSED, ANXIOUS, FLAT AFFECT, PARNOID, DISHELVED ,EASILY GETS AGITATED, PT. IS POOR HISTORIAN, POOR INSIGHT ,POOR JUDGEMENT , PT. REFUSED TO TAKE SHOWER AT THIS TIME , PT. SIGNED VOLUNTARY CONSENT PAPER IN ER, BUT REFUSED TO SIGNED ADMISSION PAPAERS ,DUE TO PT. I AM FEELING SO TIRED ,I DON'T WANTED SIGNED ANY MORE PAPERS, PT. SKIN ASSESSMENT DONE , PICTURES TAKEN AND PLACED IN THE CHART, PT. REFUSED TO CHECK INTIALLY BLOOD SUGAR, PER PT. MY BLOOD SUGAR CHEK IN ER, I DONT WANTS CHECK AT THIS TIME , ENCOURAGED, EXPLAINED RISKS AND BENEFITS STILL REFUSED, PT. V/S WNL , AWARE AND NOTIFIED OF THE ADMISSION, BELONGINGS CONTRABAND WERE DONE , NURSING ASSESSMENT DONE ,PT. RIGHTS DISCUSS BY SKID ROAD MAN , PROVIDE THE PT. WITH HANDBOOK, AND MEDICATIONS GUIDE, ENVIRONMENTAL SAFETY CHECK DONE, ENCOURAGED PT. VERBALIZED ANY FEELING CONCERN TO STAFF, ORIENT TO UNIT POLICY, NO ACUTE DISTRESS NOTED,VITAL SIGNS WNL ,DENIES ANY PAIN AT THIS TIME ,WILL CONTINUE TO MONITOR FOR Q15 SAFETY AND BEHAVIOR.
[2018-11-03] MEDS: CEPHALEXIN MONOHYDRATE 250 MG CAPSULE PO SCH ×4 (00:33→18:26)
[2018-11-03] MEDS: TEMAZEPAM 7.5 MG CAPSULE PO PRN (01:58)
[2018-11-03] MEDS: BLOOD SUGAR DIAGNOSTIC 1 EACH STRIP IN SCH ×4 (07:30→21:41)
[2018-11-03 08:00] VITALS: BP 102/52
[2018-11-03] MEDS: AMIODARONE HCL 200 MG TABLET PO SCH (09:00)
[2018-11-03] MEDS: LISINOPRIL (10MG) 10 MG TABLET PO SCH (09:00)
[2018-11-03] MEDS: LEVOTHYROXINE SODIUM 100 MCG TABLET PO SCH (09:28)
[2018-11-03] MEDS: CHOLECALCIFEROL 1,000 UNIT TABLET (VIT D3) PO SCH (09:29)
[2018-11-03] MEDS: PROSOURCE / PROSTAT (PYXIS) 30 ML UDC PO SCH (09:30)
[2018-11-03] MEDS: DIVALPROEX SODIUM 250 MG TABLET.DR PO SCH ×3 (09:34→21:17)
[2018-11-03] MEDS: QUETIAPINE FUMARATE 25 MG TABLET PO SCH ×2 (09:34→16:23)
[2018-11-03] MEDS: DOCUSATE SODIUM 250 MG CAPSULE PO SCH (09:34)
--- NOTE | 2018-11-03 09:39 | NUR ---
RN NOTE: [facility] INFOR[facility].
[2018-11-03] MEDS: FLUTICASONE/VILANTEROL 1 EACH BLST.W.DEV IH SCH (09:56)
[2018-11-03] MEDS: NYSTATIN TOP POWDER 15 GM BOTTLE TP SCH ×2 (12:20→16:24)
--- NOTE | 2018-11-03 13:27 | NUR ---
RN NOTE: 0900 BS: 74MG/DL, NO COVERAGE NEEDED. 1200 BS: 109MG/DL, NO COVERAGE NEEDED.
[2018-11-03 16:00] VITALS: BP 139/80
[2018-11-03] MEDS: RIVAROXABAN 10 MG TABLET PO SCH (18:00)
--- NOTE | 2018-11-03 18:57 | NUR ---
RN NOTE: WENT IN TO ADMINISTER 1800 XARELTO. PATIENT REFUSED MEDICATION. PATIENT ALSO STATED THAT NO DOCTORS HAVE SEEN HER TODAY AND THAT WE ARE NEGLECTING HER. I TOLD HER SEVERAL TIMES THAT BOTH DOCTORS DID VISIT HER TODAY AND THAT SHE HAS ASKED ME THAT SEVERAL TIMES BUT KEEPS FORGETTING. PATIENT IS SCREAMING AT ME STATING THAT SHE IS GOING TO KILL HERSELF. WHEN I ASKED HER WHAT HER PLAN IS SHE STATED THAT SHE IS NOT GOING TO TELL ME HER PLAN. INFORMED APRIL HENNING ABOUT MY INTERACTION WITH PATIENT.
[2018-11-03 20:17] VITALS: BP 99/50
[2018-11-03] MEDS: SENNOSIDES 8.6 MG TABLET PO SCH (21:43)
[2018-11-03] MEDS: MONTELUKAST SODIUM (10MG) 10 MG TABLET PO SCH (21:43)
[2018-11-03] MEDS: QUETIAPINE FUMARATE 100 MG TABLET PO SCH (21:50)
[2018-11-04] MEDS: CEPHALEXIN MONOHYDRATE 250 MG CAPSULE PO SCH ×4 (00:29→18:03)
[2018-11-04 06:52] LABS: BASOPHILS % (AUTO) 0.6 % (0.0-2.0); EOSINOPHILS % (AUTO) 1.4 % (0.0-6.0); HEMATOCRIT 36 % (33-45); LYMPHOCYTES # (AUTO) 2.8 /CMM (0.8-4.8); LYMPHOCYTES % (AUTO) 43.6 % (20.0-44.0); MEAN CORPUSCULAR HGB CONC 33 g/dl (31.0-36.0); MEAN CORPUSCULAR VOLUME 93 fL (82-100); MONOCYTES # (AUTO) 0.6 /CMM (0.1-1.30); MONOCYTES % (AUTO) 8.5 % (2.0-12.0); NEUTROPHILS % (AUTO) 45.9 % (43.0-81.0); PLATELET COUNT (AUTO) 150 /CMM (150-450); RED BLOOD CELL COUNT(AUTO) 3.91 MIL/uL (4.0-5.2); WHITE BLOOD COUNT (AUTO) 6.4 K/uL (4.3-11.0)
[2018-11-04 07:16] LABS: CALCIUM, SERUM 8.4 mg/dL (8.5-10.1); CREATININE 0.9 mg/dL (0.6-1.3); POTASSIUM 4.4 mmol/L (3.5-5.1)
[2018-11-04 08:00] VITALS: BP 116/61
[2018-11-04] MEDS: CHOLECALCIFEROL 1,000 UNIT TABLET (VIT D3) PO SCH (08:23)
[2018-11-04] MEDS: BLOOD SUGAR DIAGNOSTIC 1 EACH STRIP IN SCH ×2 (08:23→12:09)
[2018-11-04] MEDS: QUETIAPINE FUMARATE 25 MG TABLET PO SCH ×2 (08:23→16:21)
[2018-11-04] MEDS: AMIODARONE HCL 200 MG TABLET PO SCH (08:24)
[2018-11-04] MEDS: LEVOTHYROXINE SODIUM 100 MCG TABLET PO SCH (08:24)
[2018-11-04] MEDS: LISINOPRIL (10MG) 10 MG TABLET PO SCH (08:24)
[2018-11-04] MEDS: PROSOURCE / PROSTAT (PYXIS) 30 ML UDC PO SCH (08:25)
[2018-11-04] MEDS: DIVALPROEX SODIUM 250 MG TABLET.DR PO SCH ×3 (08:28→21:24)
[2018-11-04] MEDS: DOCUSATE SODIUM 250 MG CAPSULE PO SCH (08:28)
[2018-11-04] MEDS: FLUTICASONE/VILANTEROL 1 EACH BLST.W.DEV IH SCH (08:29)
[2018-11-04] MEDS: NYSTATIN TOP POWDER 15 GM BOTTLE TP SCH ×2 (08:29→16:22)
--- NOTE | 2018-11-04 11:00 | NUR ---
RN NOTE: NOTICED AN ABRASION ON PATIENT'S INNER RIGHT THIGH. TOOK PHOTOS AND INFORMED WOUND CARE NURSE TO ALSO TAKE A LOOK AT IT DURING HER ROUNDS. AWAITING WOUND CARE ORDERS.
--- NOTE | 2018-11-04 12:09 | NUR ---
RN NOTE: PATIENT WAS COMPLAINING THAT SHE HASNT BEEN OUT OF BED. I CONTACTED PHYSICAL THERAPY. WHEN PT ARRIVED, PATIENT IS UNABLE TO BEAR ANY WEIGHT ON LEGS TO TRANSFER ON TO A CHAIR. PATIENT IS CURRENTLY BED BOUND. PT WILL CONTINUE TO DO EXERCISES WITH HER. DURING THERAPY, PATIENT IS NOT MOTIVATED STATING THAT "THE OTHER FACILITY DESTROYED ME" AND "THEY DID THIS TO ME". ATTEMPTED TO ENCOURAGE PATIENT WITH POSITIVE RE-ENFORCEMENT.
--- NOTE | 2018-11-04 13:17 | NUR ---
RN NOTE: SPOKE TO DR ISLAS REGARDING PATIENT'S HGB A1C 5.9 (11/04/18) AND HER TREND OF BS BEING WNR EX (107,102,81). ORDERED TO DC ACHS BS CHECKS ALONG WITH INSULIN.
--- NOTE | 2018-11-04 14:28 | NUR ---
ARY called the pts daughter, Merary ([phone]), and left a voicemail that stated that the SW would like a call to discuss the pts treatment and discharge plan.
--- NOTE | 2018-11-04 14:28 | NUR ---
ARY contacted Aaliyah ([phone]) from [facility] and confirmed that the pt can return once she is discharge from the hospital.
--- NOTE | 2018-11-04 14:29 | NUR ---
Initial Discharge Plan: Pt currently resides at [facility] located at [address] [place] [id number]; ([phone]). Per pt, she will return to the facility. SW will work with the pt and the MD regarding appropriate discharge planning. SW will form a safe and proper discharge.
--- NOTE | 2018-11-04 15:15 | NUR ---
GROUP NOTE: SW encourage pt to participate in group therapy on this present day discussing the topic of "support systems." Pt refused to attend group stating she just wanted to stay in bed because she was tired. Pt is withdrawn with depressed mood. SW provided intervention and prompted reality statement. Pt stated that she does not know why she is here and that she just wanted to be left alone.
--- NOTE | 2018-11-04 15:47 | NUR ---
GROUP NOTE: SW encourage pt to participate in group therapy on this present day discussing the topic of "support systems." Pt unable to participate due to yelling, screaming, and refusing medications. Addendum: 11/08/18 at 1036 by MARY MCALLISTER ERROR NOTE
[2018-11-04 16:00] VITALS: BP 100/60
[2018-11-04] MEDS: Z GUARD REMEDY 2 OZ OINT TP SCH ×2 (16:17→21:28)
[2018-11-04] MEDS: LORAZEPAM 0.5 MG TABLET PO PRN (16:21)
--- NOTE | 2018-11-04 16:49 | NUR ---
RN NOTE: PATIENT WAS RESTLESS AND EXPERIENCING ANXIETY. PRN ATIVAN GIVEN.
[2018-11-04] MEDS: RIVAROXABAN 10 MG TABLET PO SCH (18:04)
[2018-11-04 20:00] VITALS: BP 116/47
[2018-11-04 21:06] VITALS: BP 116/47
[2018-11-04] MEDS: SENNOSIDES 8.6 MG TABLET PO SCH (21:23)
[2018-11-04] MEDS: QUETIAPINE FUMARATE 100 MG TABLET PO SCH (21:24)
[2018-11-04] MEDS: MONTELUKAST SODIUM (10MG) 10 MG TABLET PO SCH (21:24)
[2018-11-04 22:30] VITALS: BP 119/59
[2018-11-04] MEDS: TEMAZEPAM 7.5 MG CAPSULE PO PRN (22:45)
--- NOTE | 2018-11-04 22:46 | NUR ---
GPS RN notes Administered Restoril 7.5mg/1 cap/PO as ordered for sleeping per Pt request. Instructed to call. Will continue to monitor Q 15 mins check. BP 119/59, pulse 55. Charge nurse CARLOS Montenegro informed and aware.
[2018-11-05] MEDS: CEPHALEXIN MONOHYDRATE 250 MG CAPSULE PO SCH ×4 (05:46→17:26)
[2018-11-05 08:00] VITALS: BP 122/68
[2018-11-05] MEDS: LEVOTHYROXINE SODIUM 100 MCG TABLET PO SCH (08:09)
[2018-11-05] MEDS: CHOLECALCIFEROL 1,000 UNIT TABLET (VIT D3) PO SCH (08:10)
[2018-11-05] MEDS: DOCUSATE SODIUM 250 MG CAPSULE PO SCH (08:10)
[2018-11-05] MEDS: LISINOPRIL (10MG) 10 MG TABLET PO SCH (08:10)
[2018-11-05] MEDS: DIVALPROEX SODIUM 250 MG TABLET.DR PO SCH ×3 (08:10→21:23)
[2018-11-05] MEDS: QUETIAPINE FUMARATE 25 MG TABLET PO SCH ×2 (08:10→16:45)
[2018-11-05] MEDS: AMIODARONE HCL 200 MG TABLET PO SCH (08:10)
[2018-11-05] MEDS: NYSTATIN TOP POWDER 15 GM BOTTLE TP SCH ×2 (08:11→16:45)
[2018-11-05] MEDS: Z GUARD REMEDY 2 OZ OINT TP SCH ×2 (08:11→21:24)
[2018-11-05] MEDS: FLUTICASONE/VILANTEROL 1 EACH BLST.W.DEV IH SCH (08:13)
[2018-11-05] MEDS: PROSOURCE / PROSTAT (PYXIS) 30 ML UDC PO SCH (08:54)
[2018-11-05 16:00] VITALS: BP 118/75
[2018-11-05] MEDS: RIVAROXABAN 10 MG TABLET PO SCH (17:27)
[2018-11-05 21:05] VITALS: BP 129/51
[2018-11-05] MEDS: QUETIAPINE FUMARATE 100 MG TABLET PO SCH (21:23)
[2018-11-05] MEDS: MONTELUKAST SODIUM (10MG) 10 MG TABLET PO SCH (21:23)
[2018-11-05] MEDS: SENNOSIDES 8.6 MG TABLET PO SCH (21:23)
[2018-11-05] MEDS: TEMAZEPAM 7.5 MG CAPSULE PO PRN (21:24)
[2018-11-06] MEDS: CEPHALEXIN MONOHYDRATE 250 MG CAPSULE PO SCH ×4 (00:44→17:00)
[2018-11-06 08:00] VITALS: BP 126/52
[2018-11-06] MEDS: LEVOTHYROXINE SODIUM 100 MCG TABLET PO SCH (09:22)
[2018-11-06] MEDS: CHOLECALCIFEROL 1,000 UNIT TABLET (VIT D3) PO SCH (09:22)
[2018-11-06] MEDS: DIVALPROEX SODIUM 250 MG TABLET.DR PO SCH ×3 (09:22→21:40)
[2018-11-06] MEDS: DOCUSATE SODIUM 250 MG CAPSULE PO SCH (09:23)
[2018-11-06] MEDS: AMIODARONE HCL 200 MG TABLET PO SCH (09:23)
[2018-11-06] MEDS: QUETIAPINE FUMARATE 25 MG TABLET PO SCH ×2 (09:23→16:53)
[2018-11-06] MEDS: LISINOPRIL (10MG) 10 MG TABLET PO SCH (09:23)
[2018-11-06] MEDS: PROSOURCE / PROSTAT (PYXIS) 30 ML UDC PO SCH (09:24)
[2018-11-06] MEDS: Z GUARD REMEDY 2 OZ OINT TP SCH ×2 (09:24→21:51)
[2018-11-06] MEDS: NYSTATIN TOP POWDER 15 GM BOTTLE TP SCH ×2 (09:25→16:53)
[2018-11-06] MEDS: FLUTICASONE/VILANTEROL 1 EACH BLST.W.DEV IH SCH (09:25)
[2018-11-06 16:00] VITALS: BP 127/58
[2018-11-06] MEDS: LORAZEPAM 0.5 MG TABLET PO PRN (16:52)
[2018-11-06] MEDS: RIVAROXABAN 10 MG TABLET PO SCH (17:00)
--- NOTE | 2018-11-06 19:57 | NUR ---
Received patient in her room, awake, alert and oriented x1. Behavior: confused but easily redirected. Patient requested for the head the bed to be flat. Educated patient accordingly. Encouraged her to wait for medication to settle into her stomach first. Verbalized understanding but had issues with recent memory and will quickly forget. Patient is comfortably resting in bed. Denies pain. Bed in low position. Side rails up X2. Will continue to monitor behavior.
[2018-11-06 21:31] VITALS: BP 123/40
[2018-11-06] MEDS: SENNOSIDES 8.6 MG TABLET PO SCH (21:40)
[2018-11-06] MEDS: MONTELUKAST SODIUM (10MG) 10 MG TABLET PO SCH (21:41)
[2018-11-06] MEDS: QUETIAPINE FUMARATE 100 MG TABLET PO SCH (21:41)
[2018-11-07] MEDS: CEPHALEXIN MONOHYDRATE 250 MG CAPSULE PO SCH ×5 (00:08→23:05)
[2018-11-07] MEDS: LEVOTHYROXINE SODIUM 100 MCG TABLET PO SCH (07:00)
[2018-11-07 08:00] VITALS: BP 132/62
[2018-11-07] MEDS: FLUTICASONE/VILANTEROL 1 EACH BLST.W.DEV IH SCH (08:19)
[2018-11-07] MEDS: LISINOPRIL (10MG) 10 MG TABLET PO SCH (08:20)
[2018-11-07] MEDS: PROSOURCE / PROSTAT (PYXIS) 30 ML UDC PO SCH (08:20)
[2018-11-07] MEDS: QUETIAPINE FUMARATE 25 MG TABLET PO SCH ×2 (08:21→16:49)
[2018-11-07] MEDS: DIVALPROEX SODIUM 250 MG TABLET.DR PO SCH ×3 (08:21→22:07)
[2018-11-07] MEDS: AMIODARONE HCL 200 MG TABLET PO SCH (08:21)
[2018-11-07] MEDS: DOCUSATE SODIUM 250 MG CAPSULE PO SCH (08:21)
[2018-11-07] MEDS: CHOLECALCIFEROL 1,000 UNIT TABLET (VIT D3) PO SCH (08:21)
[2018-11-07] MEDS: Z GUARD REMEDY 2 OZ OINT TP SCH ×2 (08:21→22:13)
[2018-11-07] MEDS: NYSTATIN TOP POWDER 15 GM BOTTLE TP SCH ×2 (08:23→16:12)
--- NOTE | 2018-11-07 09:00 | NUR ---
GPS/RN AM SHIFT INITIAL NOTES RECEIVED PT AWAKE IN BED, PT ALERT, PLEASANT, COOPERATIVE DEMEANOR. NO ACUTE CHANGE OF CONDITION. COMPLIANT OF HER MEDICATIONS. DENIES SI, HI AND AVH. ON GOING MONITORING.
--- NOTE | 2018-11-07 15:14 | NUR ---
SW called the pts daughter, Merary ([phone]), and the pts discharge plan was discussed. SW stated that the pt is on a voluntary status right now and that she is going [facility] be [facility]. Pts daughter stated that she was told by the pt that she is unaware of the reason for her admission and the SW stated that she is here voluntarily.
--- NOTE | 2018-11-07 15:30 | NUR ---
GROUP NOTE: SW encourage pt to participate in group therapy on this present day discussing the topic of "reality testing." Pt unable to attend as she was doing physical therapy.
[2018-11-07 16:00] VITALS: BP 114/50
[2018-11-07] MEDS: RIVAROXABAN 10 MG TABLET PO SCH (17:03)
--- NOTE | 2018-11-07 19:13 | NUR ---
GPS/RN AM SHIFT END NOTES ALL NEEDS MET. NO ACUTE CHANGE OF CONDITION NOTED DURING THE SHIFT, PT ENDORSED TO PM NURSE IN STABLE CONDITION TO CONTINUE CARE.
[2018-11-07 20:00] VITALS: BP 116/45
[2018-11-07 20:28] VITALS: BP 91/61
[2018-11-07] MEDS: MONTELUKAST SODIUM (10MG) 10 MG TABLET PO SCH (22:06)
[2018-11-07] MEDS: SENNOSIDES 8.6 MG TABLET PO SCH (22:06)
[2018-11-07] MEDS: QUETIAPINE FUMARATE 100 MG TABLET PO SCH (22:07)
--- NOTE | 2018-11-07 23:12 | NUR ---
RN NOTES - PT C/O PAIN TO KNEES. ADMINISTERED PRN TYLENOL ORDERED. WILL MONITOR FOR EFFECTIVENESS
[2018-11-08] MEDS: CEPHALEXIN MONOHYDRATE 250 MG CAPSULE PO SCH ×4 (06:39→23:28)
[2018-11-08] MEDS: LEVOTHYROXINE SODIUM 100 MCG TABLET PO SCH (06:39)
[2018-11-08 08:00] VITALS: BP 112/55
[2018-11-08] MEDS: PROSOURCE / PROSTAT (PYXIS) 30 ML UDC PO SCH (09:00)
[2018-11-08] MEDS: Z GUARD REMEDY 2 OZ OINT TP SCH ×2 (09:00→21:19)
[2018-11-08] MEDS: LISINOPRIL (10MG) 10 MG TABLET PO SCH (10:19)
[2018-11-08] MEDS: AMIODARONE HCL 200 MG TABLET PO SCH (10:20)
[2018-11-08] MEDS: QUETIAPINE FUMARATE 25 MG TABLET PO SCH ×2 (10:20→17:43)
[2018-11-08] MEDS: DIVALPROEX SODIUM 250 MG TABLET.DR PO SCH ×3 (10:20→21:06)
[2018-11-08] MEDS: DOCUSATE SODIUM 250 MG CAPSULE PO SCH (10:20)
[2018-11-08] MEDS: CHOLECALCIFEROL 1,000 UNIT TABLET (VIT D3) PO SCH (10:20)
[2018-11-08] MEDS: NYSTATIN TOP POWDER 15 GM BOTTLE TP SCH ×2 (10:22→17:49)
[2018-11-08] MEDS: FLUTICASONE/VILANTEROL 1 EACH BLST.W.DEV IH SCH (10:23)
--- NOTE | 2018-11-08 11:13 | NUR ---
GROUP NOTE: ARY encourage pt to participate in group therapy on this present day discussing the topic of "reality testing." Pt unable to attend as she was doing physical therapy. Addendum: 11/08/18 at 1114 by MARY MCALLISTER ERROR NOTE
--- NOTE | 2018-11-08 15:13 | NUR ---
Group Note: SW encouraged the pt to participate in group therapy on 11/08/18 at 2pm discussing the topic of discharge planning. Pt stated that she is unable to attend because no one has been able to assist her out of her bed due to her weight. SW provided an individual intervention and informed her that she would be returning to the facility that she came from [facility] once the MD states that she is stable. Pt stated that she is unaware of why she was admitted to the hospital and was under the impression that her daughter admitted her but the SW stated that was not true.
[2018-11-08 16:00] VITALS: BP 124/52
[2018-11-08] MEDS: RIVAROXABAN 10 MG TABLET PO SCH (17:48)
[2018-11-08 20:08] VITALS: BP 120/52
[2018-11-08] MEDS: SENNOSIDES 8.6 MG TABLET PO SCH (21:06)
[2018-11-08] MEDS: TEMAZEPAM 7.5 MG CAPSULE PO PRN (21:07)
[2018-11-08] MEDS: QUETIAPINE FUMARATE 100 MG TABLET PO SCH (21:11)
[2018-11-08] MEDS: MONTELUKAST SODIUM (10MG) 10 MG TABLET PO SCH (21:18)
[2018-11-09] MEDS: LEVOTHYROXINE SODIUM 100 MCG TABLET PO SCH (06:27)
[2018-11-09] MEDS: CEPHALEXIN MONOHYDRATE 250 MG CAPSULE PO SCH ×3 (06:27→17:19)
--- NOTE | 2018-11-09 07:10 | NUR ---
RN INITIAL NOTE PATIENT IN HER ROOM, AWAKE. PT IS BEDBOUND. PER REPORT, PT IS MED COMPLIANT. WILL CONTINUE TO MONITOR
[2018-11-09 08:00] VITALS: BP 131/58
[2018-11-09] MEDS: AMIODARONE HCL 200 MG TABLET PO SCH (09:09)
[2018-11-09] MEDS: DIVALPROEX SODIUM 250 MG TABLET.DR PO SCH ×3 (09:09→21:10)
[2018-11-09] MEDS: DOCUSATE SODIUM 250 MG CAPSULE PO SCH (09:09)
[2018-11-09] MEDS: QUETIAPINE FUMARATE 25 MG TABLET PO SCH ×2 (09:09→16:40)
[2018-11-09] MEDS: LISINOPRIL (10MG) 10 MG TABLET PO SCH (09:09)
[2018-11-09] MEDS: NYSTATIN TOP POWDER 15 GM BOTTLE TP SCH ×2 (09:10→16:44)
[2018-11-09] MEDS: PROSOURCE / PROSTAT (PYXIS) 30 ML UDC PO SCH (09:10)
[2018-11-09] MEDS: FLUTICASONE/VILANTEROL 1 EACH BLST.W.DEV IH SCH (09:10)
[2018-11-09] MEDS: Z GUARD REMEDY 2 OZ OINT TP SCH ×2 (09:16→21:12)
[2018-11-09] MEDS: CHOLECALCIFEROL 1,000 UNIT TABLET (VIT D3) PO SCH (09:26)
[2018-11-09 16:00] VITALS: BP 119/55
[2018-11-09] MEDS: RIVAROXABAN 10 MG TABLET PO SCH (17:21)
[2018-11-09 20:29] VITALS: BP 113/40
[2018-11-09] MEDS: MONTELUKAST SODIUM (10MG) 10 MG TABLET PO SCH (21:09)
[2018-11-09] MEDS: QUETIAPINE FUMARATE 100 MG TABLET PO SCH (21:09)
[2018-11-09] MEDS: SENNOSIDES 8.6 MG TABLET PO SCH (21:10)
[2018-11-09] MEDS: TEMAZEPAM 7.5 MG CAPSULE PO PRN (22:02)
[2018-11-10 08:00] VITALS: BP 125/62
[2018-11-10] MEDS: LISINOPRIL (10MG) 10 MG TABLET PO SCH (08:24)
[2018-11-10] MEDS: AMIODARONE HCL 200 MG TABLET PO SCH (08:24)
[2018-11-10] MEDS: DOCUSATE SODIUM 250 MG CAPSULE PO SCH (08:24)
[2018-11-10] MEDS: LEVOTHYROXINE SODIUM 100 MCG TABLET PO SCH (08:24)
[2018-11-10] MEDS: CHOLECALCIFEROL 1,000 UNIT TABLET (VIT D3) PO SCH (08:25)
[2018-11-10] MEDS: QUETIAPINE FUMARATE 25 MG TABLET PO SCH ×2 (08:25→16:36)
[2018-11-10] MEDS: DIVALPROEX SODIUM 250 MG TABLET.DR PO SCH ×3 (08:25→21:34)
[2018-11-10] MEDS: FLUTICASONE/VILANTEROL 1 EACH BLST.W.DEV IH SCH (08:31)
[2018-11-10] MEDS: NYSTATIN TOP POWDER 15 GM BOTTLE TP SCH ×2 (08:31→16:46)
[2018-11-10] MEDS: PROSOURCE / PROSTAT (PYXIS) 30 ML UDC PO SCH (08:31)
[2018-11-10] MEDS: Z GUARD REMEDY 2 OZ OINT TP SCH ×2 (08:34→21:37)
--- NOTE | 2018-11-10 15:34 | NUR ---
Group Note: Pt attended group therapy on 11/10/18 at 2:30pm discussing the topic of anger management for when they are in the hospital and for once they are discharged. S: Pt stated, �When I get angry I just blow up. I know I should just remove myself from the situation but it is not easy, it is hard, but I want to do better. I want to practice doing better and removing myself from the situation.� O: Pt was present during the group session and was engaged. Pt appeared to be in a euthymic mood and presented with a calm affect. Pt maintained appropriate eye contact and had an appropriate tone of voice. A: Pt expressed that when she gets angry she will practice removing herself from the situation until she calms down. Pt will work on managing her anger by talking it out and staying calm when other people upset her. P: Pt will continue milieu treatment and medication stabilization.
[2018-11-10 16:00] VITALS: BP 125/59
--- NOTE | 2018-11-10 16:04 | NUR ---
ARY called the pts daughter, Merary ([phone]), and left a message that informed her that pt will be discharged back to [facility] tomorrow.
--- NOTE | 2018-11-10 16:06 | NUR ---
ARY contacted Aaliyah ([phone]) from [facility] and informed her that the pt will be discharged back to the facility tomorrow.
[2018-11-10] MEDS: RIVAROXABAN 10 MG TABLET PO SCH (17:31)
[2018-11-10 20:00] VITALS: BP 118/57
[2018-11-10] MEDS: MONTELUKAST SODIUM (10MG) 10 MG TABLET PO SCH (21:34)
[2018-11-10] MEDS: QUETIAPINE FUMARATE 100 MG TABLET PO SCH (21:34)
[2018-11-10] MEDS: SENNOSIDES 8.6 MG TABLET PO SCH (21:34)
[2018-11-10] MEDS: TEMAZEPAM 7.5 MG CAPSULE PO PRN (21:41)
[2018-11-11 03:46] VITALS: BP 118/57
--- NOTE | 2018-11-11 07:15 | NUR ---
OPENING PATIENT IN HER ROOM, AWAKE. PT IS BEDBOUND. PER REPORT, PT IS MED COMPLIANT. WILL CONTINUE TO MONITOR POSSIBILITY OF FACILITY DISCHARGE TODAY
[2018-11-11 08:00] VITALS: BP 104/67
[2018-11-11] MEDS: DIVALPROEX SODIUM 250 MG TABLET.DR PO SCH (09:08)
[2018-11-11] MEDS: DOCUSATE SODIUM 250 MG CAPSULE PO SCH (09:08)
[2018-11-11] MEDS: CHOLECALCIFEROL 1,000 UNIT TABLET (VIT D3) PO SCH (09:08)
[2018-11-11] MEDS: AMIODARONE HCL 200 MG TABLET PO SCH (09:12)
[2018-11-11] MEDS: LISINOPRIL (10MG) 10 MG TABLET PO SCH (09:13)
[2018-11-11] MEDS: LEVOTHYROXINE SODIUM 100 MCG TABLET PO SCH (09:13)
[2018-11-11] MEDS: FLUTICASONE/VILANTEROL 1 EACH BLST.W.DEV IH SCH (09:46)
[2018-11-11] MEDS: QUETIAPINE FUMARATE 25 MG TABLET PO SCH (09:47)
[2018-11-11] MEDS: NYSTATIN TOP POWDER 15 GM BOTTLE TP SCH (09:47)
[2018-11-11] MEDS: PROSOURCE / PROSTAT (PYXIS) 30 ML UDC PO SCH (09:47)
[2018-11-11] MEDS: Z GUARD REMEDY 2 OZ OINT TP SCH (09:48)
--- NOTE | 2018-11-11 13:54 | NUR ---
Discharge Note: Pt was discharged to [facility] (SNF) [place] at [address] [place] [address]; ([phone]). Pt was transported via [facility] at 2M. Pt�s daughter, Merary ([phone]), was notified of this placement. Upon discharge, the pt appeared to be in a euthymic mood and presented with a distressed and anxious affect. Pt denied both suicidal and homicidal ideation as well as auditory and visual hallucinations. Pt will continue to be under the care of her psychiatrist, Dr. Long, located at [address] [place] [address]; and her veneer sample maker, Dr. Otoole, located at [address] [place] [address], [address] [address], .
--- NOTE | 2018-11-11 14:58 | NUR ---
transfer [id number] pt calm and cooperative Exitcare given and repot given to Dinae from facility. pt denies SI and HI ideations at this time. All belongings given to pt as well.
[2018-11-11 15:05] VITALS: BP 149/52
--- NOTE | 2018-11-11 15:24 | NUR ---
[facility] fax number: [phone].
== END 2018-11-11 15:00 | DRG 885 ==
LOC: ER 18:48 → GPS 21:09
PROVIDERS: ADMIT Psychiatry & Neurology Psychiatry; ATTEND Internal Medicine
DX: F39 Unspecified mood [affective] disorder (principal); I11.0 Hypertensive heart disease with heart failure; F03.91 Unspecified dementia, unspecified severity, with behavioral disturbance; N39.0 Urinary tract infection, site not specified; E44.0 Moderate protein-calorie malnutrition; F23 Brief psychotic disorder; F31.89 Other bipolar disorder; B96.20 Unspecified Escherichia coli [E. coli] as the cause of diseases classified elsewhere; J45.909 Unspecified asthma, uncomplicated; E03.9 Hypothyroidism, unspecified; I48.0 Paroxysmal atrial fibrillation; Z79.01 Long term (current) use of anticoagulants; E11.9 Type 2 diabetes mellitus without complications; F41.9 Anxiety disorder, unspecified; Z68.38 Body mass index [BMI] 38.0-38.9, adult; L30.4 Erythema intertrigo; E66.01 Morbid (severe) obesity due to excess calories; Z66 Do not resuscitate; I50.9 Heart failure, unspecified; E78.5 Hyperlipidemia, unspecified; J44.9 Chronic obstructive pulmonary disease, unspecified; Z96.659 Presence of unspecified artificial knee joint; I25.10 Atherosclerotic heart disease of native coronary artery without angina pectoris; Z74.01 Bed confinement status
CPT/HCPCS: 36415; 80048-TC; 80061-TC; 80076-TC; 80305; 81000-TC; 82962-TC; 85025-TC; 87081-TC; 87086-TC; 87186-TC; 92526; 92611-TC; 97110-TC; 97112-TC; 97530-TC; G0480; J1815

== ENCOUNTER 2019-02-28 02:01 | Inpatient (IN) | payer MEDICARE, OTHER ==
[~2019-02-28] VITALS: Ht 162.6 cm; Wt 96.2 kg
[~2019-02-28 02:01] MED LIST changes: -SENN-168 PO; +SENN-261 PO
--- NOTE | 2019-02-28 02:20 | NUR ---
PT AAOX4. 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 PT STATES SHE FELL ON CONCRETE. PER RA PT -KO. RR EVEN AND UNALBORED. AWAITING MD FOR EVAL.
[2019-02-28] MEDS ORDERED: HYDROMORPHONE INJ 2 MG/ML DISP.SYRIN ONE (02:37)
[2019-02-28] MEDS ORDERED: ONDANSETRON 4 MG TAB.RAPDIS ONE (02:38)
[2019-02-28 02:59] LABS: BASOPHILS % (AUTO) 0.4 % (0.0-2.0); HEMATOCRIT 36 % (33-45); HEMOGLOBIN 11.9 g/dL (11.5-14.8); LYMPHOCYTES # (AUTO) 2.7 /CMM (0.8-4.8); MEAN CORPUSCULAR HGB CONC 33 g/dl (31.0-36.0); MEAN CORPUSCULAR VOLUME 94 fL (82-100); MONOCYTES # (AUTO) 0.6 /CMM (0.1-1.30); MONOCYTES % (AUTO) 6.2 % (2.0-12.0); NEUTROPHILS # (AUTO) 6.5 /CMM (1.8-8.9); NEUTROPHILS % (AUTO) 65.4 % (43.0-81.0); PLATELET COUNT (AUTO) 161 /CMM (150-450); RED BLOOD CELL COUNT(AUTO) 3.85 MIL/uL (4.0-5.2); WHITE BLOOD COUNT (AUTO) 9.9 K/uL (4.3-11.0)
[2019-02-28] MEDS ORDERED: ONDANSETRON 4 MG TAB.RAPDIS SL ONE (03:00)
[2019-02-28] MEDS ORDERED: HYDROMORPHONE INJ 2 MG/ML DISP.SYRIN IM ONE (03:00)
[2019-02-28 03:04] LABS: CALCIUM, SERUM 8.6 mg/dL (8.5-10.1); CARBON DIOXIDE 28 mmol/L (21-32); CHLORIDE 105 mmol/L (98-107); GLUCOSE 128 mg/dL (74-106); POTASSIUM 4.4 mmol/L (3.5-5.1); SODIUM SERUM 141 mmol/L (136-145); UREA NITROGEN, BLOOD 27 mg/dL (7-18)
--- NOTE | 2019-02-28 03:16 | NUR ---
XRAY AT BEDSIDE
--- NOTE | 2019-02-28 03:24 | NUR ---
PT PLACED ON 2L NC SAT 97
--- NOTE | 2019-02-28 03:26 | NUR ---
XRAY AT BEDSIDE
--- NOTE | 2019-02-28 05:02 | NUR ---
[facility] CALLED FOR TRANSPORT. NO TRANSPORT AVAILABLE UNTIL AFTER 0904
--- NOTE | 2019-02-28 06:15 | NUR ---
pt was transferred to the third floor in stable condition.
[2019-02-28] MEDS ORDERED: ZOLPIDEM TARTRATE 5 MG TABLET PO PRN (06:30)
[2019-02-28] MEDS ORDERED: Z GUARD REMEDY 2 OZ OINT TP PRN (06:30)
[2019-02-28] MEDS ORDERED: MAG HYDROX/AL HYDROX/SIMETH 30 ML UDC PO PRN (06:30)
[2019-02-28] MEDS ORDERED: HYDROCODONE/APAP 5/325MG 1 EACH TABLET PO PRN (06:30)
[2019-02-28] MEDS ORDERED: MAGNESIUM HYDROXIDE 30 ML UDC PO PRN ×2 (06:30→10:00)
[2019-02-28] MEDS ORDERED: ACETAMINOPHEN 325 MG TABLET PO PRN (06:30)
[2019-02-28] MEDS ORDERED: QUET25TA PO (07:55)
[2019-02-28] MEDS ORDERED: ACET-868 PO (07:55)
[2019-02-28] MEDS ORDERED: AMIN30LI2 PO (07:55)
[2019-02-28] MEDS ORDERED: DOCU100C36 PO (07:55)
--- NOTE | 2019-02-28 07:57 | NUR ---
MS RN NOTES PATIENT RECEIVED RESTING INSIDE ROOM. AWAKE, ALERT AND ORIENTED X 2, VERBALLY RESPONSIVE AND RESPONDS TO VERBAL AND TACTILE STIMULI. BREATHING EVEN AND UNLABORED. NO ACUTE DISTRESS. DENIES ANY PAIN OR DISCOMFORT. SAFETY PRECAUTIONS IN PLACE. WILL CONTINUE TO MONITOR. BED LOCKED AND IN LOW POSITION. SIDE RAILS UP X 3. CALL LIGHT WITHIN EASY REACH
[2019-02-28 08:00] VITALS: BP 96/59
[2019-02-28] MEDS ORDERED: BISACODYL SUPP (10 MG) 10 MG/SUPP.RECT SUPP.RECT RC PRN (10:00)
[2019-02-28] MEDS: LISINOPRIL (10MG) 10 MG TABLET PO SCH (10:00)
[2019-02-28] MEDS: HYDROMORPHONE INJ 2 MG/ML DISP.SYRIN IV PRN ×2 (10:18→18:43)
[2019-02-28] MEDS: ONDANSETRON HCL/PF 4 MG/2 ML VIAL IVP PRN (10:25)
[2019-02-28] MEDS: QUETIAPINE FUMARATE 25 MG TABLET PO SCH ×2 (10:44→16:22)
[2019-02-28] MEDS: CHOLECALCIFEROL 1,000 UNIT TABLET (VIT D3) PO SCH (10:45)
[2019-02-28] MEDS: DOCUSATE SODIUM 100 MG CAPSULE PO SCH (10:45)
[2019-02-28] MEDS: AMIODARONE HCL 200 MG TABLET PO SCH (10:45)
[2019-02-28] MEDS: ACETAMINOPHEN 325 MG TABLET PO SCH ×2 (10:45→21:39)
[2019-02-28] MEDS: LEVOTHYROXINE SODIUM 100 MCG TABLET PO SCH (10:45)
[2019-02-28] MEDS: DIVALPROEX SODIUM 125 MG CAP.SPRINK PO SCH ×3 (10:47→16:22)
[2019-02-28] MEDS: PIOGLITAZONE HCL 15 MG TABLET PO SCH (10:47)
[2019-02-28 16:00] VITALS: BP 113/73
--- NOTE | 2019-02-28 19:06 | NUR ---
MS RN NOTES PATIENT RESTING INSIDE ROOM. NO ACUTE DISTRESS. NO CHANGES IN LOC NOTED. PATIENT KEPT CLEAN, DRY AND COMFORTABLE. SAFETY PRECAUTIONS IN PLACE. CONTINUE NWB IN BLE. WILL ENDORSE TO INCOMING SHIFT FOR KEYANA. BED LOCKED AND IN LOW POSITION. SIDE RAILS UP X 3. CALL LIGHT WITHIN EASY REACH
[2019-02-28 21:18] VITALS: BP 85/45
[2019-02-28] MEDS: SENNOSIDES 8.6 MG TABLET PO SCH (21:38)
[2019-02-28] MEDS: MONTELUKAST SODIUM (10MG) 10 MG TABLET PO SCH (21:39)
[2019-03-01] MEDS: ONDANSETRON HCL/PF 4 MG/2 ML VIAL IVP PRN ×2 (00:49→13:05)
[2019-03-01] MEDS: HYDROMORPHONE INJ 2 MG/ML DISP.SYRIN IV PRN ×3 (00:56→12:56)
[2019-03-01 05:00] VITALS: BP 125/60
--- NOTE | 2019-03-01 05:24 | NUR ---
ENDING NOTES: pt is confused at times. She know she is in the hospital but doesn't know why. She will cry out "I'm dying" over and over. She say " I can't move my legs , why?" Noted need to be offered fluids she is not reaching over to grab the water cup. Netor thick liquids taken w/o problems
--- NOTE | 2019-03-01 07:15 | NUR ---
RN OPENING NOTES RECEIVED PATIENT RESTING IN BED. AWAKE, ALERT AND ORIENTED X 2, VERBALLY RESPONSIVE AND RESPONDS TO VERBAL AND TACTILE STIMULI. BREATHING EVEN AND UNLABORED. NO ACUTE DISTRESS. DENIES ANY PAIN OR DISCOMFORT. IV ACCESS INTACT AND PATENT. SAFETY PRECAUTIONS IN PLACE. WILL CONTINUE TO MONITOR. BED LOCKED AND IN LOW POSITION. SIDE RAILS UP X 3. BED ALARM ON. CALL LIGHT WITHIN EASY REACH. WILL CONT TO MONITOR ACCORDINGLY
[2019-03-01 08:00] VITALS: BP 96/50
[2019-03-01] MEDS: CHOLECALCIFEROL 1,000 UNIT TABLET (VIT D3) PO SCH (08:55)
[2019-03-01] MEDS: QUETIAPINE FUMARATE 25 MG TABLET PO SCH ×2 (08:56→17:11)
[2019-03-01] MEDS: PIOGLITAZONE HCL 15 MG TABLET PO SCH (08:56)
[2019-03-01] MEDS: ACETAMINOPHEN 325 MG TABLET PO SCH ×2 (08:57→23:36)
[2019-03-01] MEDS: DOCUSATE SODIUM 100 MG CAPSULE PO SCH (08:57)
[2019-03-01] MEDS: AMIODARONE HCL 200 MG TABLET PO SCH (08:57)
[2019-03-01] MEDS: DIVALPROEX SODIUM 125 MG CAP.SPRINK PO SCH ×3 (08:58→17:11)
[2019-03-01] MEDS: LEVOTHYROXINE SODIUM 100 MCG TABLET PO SCH (08:59)
[2019-03-01] MEDS ORDERED: INSULIN REGULAR, HUMAN 100 UNIT/ML 3 ML VIAL SQ PRN (09:00)
[2019-03-01] MEDS ORDERED: DEXTROSE 50%-WATER 50 ML DISP.SYRIN IV PRN (09:00)
[2019-03-01] MEDS: LISINOPRIL (10MG) 10 MG TABLET PO SCH (09:00)
[2019-03-01] MEDS: MORPHINE SULFATE INJ 2 MG/ML DISP.SYRIN IV PRN ×2 (10:51→17:11)
--- NOTE | 2019-03-01 12:26 | NUR ---
rn notes received lab for patient potassium 6.2. will notify Dr Geller
[2019-03-01 12:43] LABS: BASOPHILS % (AUTO) 0.1 % (0.0-2.0); HEMATOCRIT 30 % (33-45); HEMOGLOBIN 9.5 g/dL (11.5-14.8); LYMPHOCYTES # (AUTO) 1.9 /CMM (0.8-4.8); LYMPHOCYTES % (AUTO) 9.9 % (20.0-44.0); MEAN CORPUSCULAR HGB CONC 32 g/dl (31.0-36.0); MEAN CORPUSCULAR VOLUME 96 fL (82-100); MONOCYTES # (AUTO) 1.9 /CMM (0.1-1.30); MONOCYTES % (AUTO) 9.9 % (2.0-12.0); NEUTROPHILS # (AUTO) 15.6 /CMM (1.8-8.9); NEUTROPHILS % (AUTO) 80.1 % (43.0-81.0); PLATELET COUNT (AUTO) 153 /CMM (150-450); RED BLOOD CELL COUNT(AUTO) 3.12 MIL/uL (4.0-5.2); WHITE BLOOD COUNT (AUTO) 19.5 K/uL (4.3-11.0)
[2019-03-01] MEDS: BLOOD SUGAR DIAGNOSTIC 1 EACH STRIP VI SCH ×3 (12:47→23:43)
[2019-03-01 13:07] LABS: ALANINE AMINOTRANSFERASE 16 U/L (12-78); ALBUMIN 2.8 g/dL (3.4-5.0); ALKALINE PHOSPHATASE 57 U/L (46-116); ASPARTATE AMINOTRANSFERASE 14 U/L (15-37); BILIRUBIN,TOTAL 0.4 mg/dL (0.2-1.0); CALCIUM, SERUM 8.9 mg/dL (8.5-10.1); CARBON DIOXIDE 20 mmol/L (21-32); CHLORIDE 102 mmol/L (98-107); CREATININE 3.2 mg/dL (0.6-1.3); GLUCOSE 145 mg/dL (74-106); MAGNESIUM 2.4 mg/dL (1.8-2.4); PHOSPHORUS 7.4 mg/dL (2.5-4.9); SODIUM SERUM 140 mmol/L (136-145); UREA NITROGEN, BLOOD 53 mg/dL (7-18)
[2019-03-01 13:08] LABS: TRIGLYCERIDES 82 mg/dL (30-150)
[2019-03-01 13:09] LABS: CHOLESTEROL 173 mg/dL (<200); HDL CHOLESTEROL 63 mg/dL (40-60); LDL 92 mg/dL (0-99); THYROID STIMULATING HORMONE 12.495 uIU/mL (0.358-3.74)
[2019-03-01 13:12] LABS: POTASSIUM 6.2 mmol/L (3.5-5.1)
[2019-03-01 16:00] VITALS: BP 108/74
[2019-03-01] MEDS: SODIUM POLYSTYRENE SULFONATE 15 G/60 ML BOTTLE PO ONE ×2 (17:18→17:50)
--- NOTE | 2019-03-01 17:35 | NUR ---
rn notes Patient refused to take the Kayexalate PO, she spit it out and refused to take it. notified Dr Geller.
--- NOTE | 2019-03-01 18:24 | NUR ---
rn notes Per Dr Geller, give Kayexalate rectally.
[2019-03-01] MEDS ORDERED: SODIUM POLYSTYRENE SULFONATE 15 G/60 ML BOTTLE RC ONE (19:00)
--- NOTE | 2019-03-01 19:30 | NUR ---
RN OPENING NOTES BEDSIDE REPORT RECIEVED FROM KETTY GONZALEZ. PATIENT RESTING IN BED. AWAKE, ALERT AND ORIENTED X 1, VERBALLY RESPONSIVE AND RESPONDS TO VERBAL AND TACTILE STIMULI. BREATHING EVEN AND UNLABORED. NO ACUTE DISTRESS. IV ACCESS INTACT AND PATENT TO RIGHT AC #20. SAFETY PRECAUTIONS IN PLACE BED IN LOW LOCKED POSITION SRX3. BED LOCKED AND IN LOW POSITION. SIDE RAILS UP X 3. BED ALARM ON. CALL LIGHT WITHIN REACH. WILL CONT TO MONITOR
--- NOTE | 2019-03-01 19:40 | NUR ---
RN CLOSING NOTES PATIENT IN STABLE CONDITION. ALL NEEDS ATTENDED AND PROVIDED. ALL DUE MEDS GIVEN ORDERED. KEPT PATIENT SAFE AND COMFORTABLE. TURNED AND REPOSITIONED EVERY 2HRS NEEDED. BED IN LOW/LOCKED POSITION, SIDERAILS UP, BED ALARM ON, CALL LIGHT IN REACH. ENDORSED TO NIGHT RN FOR KEYANA.
[2019-03-01 20:00] VITALS: BP 95/54
[2019-03-01] MEDS: SENNOSIDES 8.6 MG TABLET PO SCH (23:35)
[2019-03-01] MEDS: MONTELUKAST SODIUM (10MG) 10 MG TABLET PO SCH (23:35)
[2019-03-01] MEDS: *INSULIN REGULAR(HUMULIN R)HUM 100 UNIT/ML VIAL SQ PRN (23:43)
--- NOTE | 2019-03-01 23:44 | NUR ---
Insulin held, patient has poor appetite, not eating bed time snack.
[2019-03-02] MEDS: BLOOD SUGAR DIAGNOSTIC 1 EACH STRIP VI SCH ×4 (05:52→21:44)
[2019-03-02] MEDS: LEVOTHYROXINE SODIUM 100 MCG TABLET PO SCH (05:52)
--- NOTE | 2019-03-02 06:00 | NUR ---
RN CLOSING NOTES PATIENT IN STABLE CONDITION. ALL NEEDS ATTENDED AND PROVIDED. ALL DUE MEDS GIVEN ORDERED. KEPT PATIENT SAFE AND COMFORTABLE. TURNED AND REPOSITIONED EVERY 2HRS NEEDED. KAYEXELATE GIVEN RECTALLY LAST NIGHT FOR K OF 6.4 . BED IN LOW/LOCKED POSITION, SIDERAILS UP, BED ALARM ON, CALL LIGHT IN REACH. WILL ENDORSE TO DAY SHIFT RN FOR KEYANA.
--- NOTE | 2019-03-02 07:20 | NUR ---
M/S RN NOTES PATIENT RESTING IN BED, NO RESPIRATORY DISTRESS, NO C/O PAIN AT THIS TIME. SKIN WARM TO TOUCH, IV ACCESS SITE INTACT AND PATENT. PATIENT REPOSITIONED EVERY 2HRS. PATIENT'S NEEDS ATTENDED, BED ON LOWEST LOCKED POSITION, CALL LIGHT WITHIN REACH. WILL CONTINUE
[2019-03-02 07:24] LABS: BASOPHILS % (AUTO) 0.1 % (0.0-2.0); HEMATOCRIT 26 % (33-45); HEMOGLOBIN 8.3 g/dL (11.5-14.8); LYMPHOCYTES # (AUTO) 2.5 /CMM (0.8-4.8); MEAN CORPUSCULAR HGB CONC 32 g/dl (31.0-36.0); MEAN CORPUSCULAR VOLUME 94 fL (82-100); MONOCYTES # (AUTO) 2.4 /CMM (0.1-1.30); MONOCYTES % (AUTO) 13.4 % (2.0-12.0); NEUTROPHILS # (AUTO) 13.1 /CMM (1.8-8.9); NEUTROPHILS % (AUTO) 72.5 % (43.0-81.0); PLATELET COUNT (AUTO) 136 /CMM (150-450); RED BLOOD CELL COUNT(AUTO) 2.71 MIL/uL (4.0-5.2); WHITE BLOOD COUNT (AUTO) 18.1 K/uL (4.3-11.0)
[2019-03-02 07:48] LABS: CALCIUM, SERUM 8.5 mg/dL (8.5-10.1); CARBON DIOXIDE 25 mmol/L (21-32); CHLORIDE 102 mmol/L (98-107); CREATININE 3.6 mg/dL (0.6-1.3); GLUCOSE 138 mg/dL (74-106); MAGNESIUM 2.7 mg/dL (1.8-2.4); PHOSPHORUS 7.1 mg/dL (2.5-4.9); SODIUM SERUM 142 mmol/L (136-145); UREA NITROGEN, BLOOD 70 mg/dL (7-18)
[2019-03-02 07:50] VITALS: BP 134/50
[2019-03-02] MEDS: DOCUSATE SODIUM 100 MG CAPSULE PO SCH (08:31)
[2019-03-02] MEDS: PIOGLITAZONE HCL 15 MG TABLET PO SCH (08:31)
[2019-03-02] MEDS: DIVALPROEX SODIUM 125 MG CAP.SPRINK PO SCH ×3 (08:31→17:30)
[2019-03-02] MEDS: ACETAMINOPHEN 325 MG TABLET PO SCH ×2 (08:32→21:44)
[2019-03-02] MEDS: LISINOPRIL (10MG) 10 MG TABLET PO SCH (08:32)
[2019-03-02] MEDS: CHOLECALCIFEROL 1,000 UNIT TABLET (VIT D3) PO SCH (08:32)
[2019-03-02] MEDS: AMIODARONE HCL 200 MG TABLET PO SCH (08:32)
[2019-03-02] MEDS: QUETIAPINE FUMARATE 25 MG TABLET PO SCH ×2 (08:32→17:30)
[2019-03-02] MEDS ORDERED: IV 1/2NS 1000 ML 1,000 ML IV ONE (10:30)
[2019-03-02] MEDS ORDERED: SODIUM POLYSTYRENE SULFONATE 15 G/60 ML BOTTLE PO ONE (10:30)
[2019-03-02] MEDS ORDERED: SODIUM POLYSTYRENE SULFONATE 15 G/60 ML BOTTLE RC ONE (12:00)
[2019-03-02] MEDS: *INSULIN REGULAR(HUMULIN R)HUM 100 UNIT/ML VIAL SQ PRN (12:15)
[2019-03-02 16:00] VITALS: BP 97/59
--- NOTE | 2019-03-02 19:10 | NUR ---
M/S RN NOTES PATIENT AWAKE IN BED, NO RESPIRATORY DISTRESS, NO C/O PAIN AT THIS TIME. BLE SPLINTS INTACT, ASSESSED FOR REDNESS AND CIRCULATION. SKIN WARM TO TOUCH. IV 1/2 NS INFUSING AT 100ML/HR, INTACT AND PATENT. PATIENT'S NEEDS ATTENDED. BED ON LOWEST LOCKED POSITION, CALL LIGHT WITHIN REACH. WILL ENDORSE TO ONCOMING NURSE.
--- NOTE | 2019-03-02 19:30 | NUR ---
ms dane initial notes received pt in bed awake and alert on sitting position with side rails up. IVF 1/2 NS at 100ml/hr infusing at this time.no sob noted. Denies any pain or any discomfort. skin warm and dry to touch, not in any acute distress noted. encouraged pt to used the call light system if she needs some helped. kept her warm and comfortable at all times. will continue monitoring. place call light at reach.
[2019-03-02 20:00] VITALS: BP 91/56
[2019-03-02] MEDS: MONTELUKAST SODIUM (10MG) 10 MG TABLET PO SCH (21:44)
[2019-03-02] MEDS: SENNOSIDES 8.6 MG TABLET PO SCH (21:44)
--- NOTE | 2019-03-03 | NUR ---
ms waistline joiner lockstitch notes pt sleeping comfortably in bed without any acute distress noted. kept her warm and comfortable at all times.place call light at reach.
[2019-03-03] MEDS: BLOOD SUGAR DIAGNOSTIC 1 EACH STRIP VI SCH ×2 (06:36→11:42)
--- NOTE | 2019-03-03 07:29 | NUR ---
ms sign artist closing notes pt resting comfortably in bed after morning care done,. skin care also done and all due meds given blood sugar checked done 121, no insulin due at this time. no signs of any hypo glycemia noted. kept her warm and comfortable at all times. will endorse to am nurse for continuity of care. place call light at reach.
[2019-03-03 07:36] LABS: BASOPHILS % (AUTO) 0.1 % (0.0-2.0); HEMATOCRIT 21 % (33-45); HEMOGLOBIN 7.1 g/dL (11.5-14.8); LYMPHOCYTES # (AUTO) 1.3 /CMM (0.8-4.8); LYMPHOCYTES % (AUTO) 9.9 % (20.0-44.0); MEAN CORPUSCULAR HGB CONC 33 g/dl (31.0-36.0); MEAN CORPUSCULAR VOLUME 92 fL (82-100); MONOCYTES # (AUTO) 1.3 /CMM (0.1-1.30); MONOCYTES % (AUTO) 10.2 % (2.0-12.0); NEUTROPHILS # (AUTO) 10.2 /CMM (1.8-8.9); NEUTROPHILS % (AUTO) 79.8 % (43.0-81.0); PLATELET COUNT (AUTO) 134 /CMM (150-450); RED BLOOD CELL COUNT(AUTO) 2.29 MIL/uL (4.0-5.2); WHITE BLOOD COUNT (AUTO) 12.8 K/uL (4.3-11.0)
[2019-03-03 07:46] LABS: ALANINE AMINOTRANSFERASE 16 U/L (12-78); ALBUMIN 2.4 g/dL (3.4-5.0); ALKALINE PHOSPHATASE 59 U/L (46-116); ASPARTATE AMINOTRANSFERASE 29 U/L (15-37); BILIRUBIN,TOTAL 0.5 mg/dL (0.2-1.0); CALCIUM, SERUM 8.1 mg/dL (8.5-10.1); CARBON DIOXIDE 24 mmol/L (21-32); CHLORIDE 101 mmol/L (98-107); CREATININE 2.9 mg/dL (0.6-1.3); GLUCOSE 129 mg/dL (74-106); MAGNESIUM 2.8 mg/dL (1.8-2.4); PHOSPHORUS 5.3 mg/dL (2.5-4.9); POTASSIUM 4.6 mmol/L (3.5-5.1); SODIUM SERUM 139 mmol/L (136-145); TOTAL PROTEIN, SERUM 6.2 g/dL (6.4-8.2)
[2019-03-03] MEDS: LEVOTHYROXINE SODIUM 100 MCG TABLET PO SCH (07:46)
[2019-03-03 07:48] LABS: CREATINE KINASE, TOTAL 547 U/L (26-192)
[2019-03-03 07:50] LABS: UREA NITROGEN, BLOOD 85 mg/dL (7-18)
[2019-03-03 08:00] VITALS: BP 111/40
[2019-03-03] MEDS: DOCUSATE SODIUM 100 MG CAPSULE PO SCH (09:00)
[2019-03-03] MEDS: CHOLECALCIFEROL 1,000 UNIT TABLET (VIT D3) PO SCH (09:06)
[2019-03-03] MEDS: DIVALPROEX SODIUM 125 MG CAP.SPRINK PO SCH ×2 (09:06→13:24)
[2019-03-03] MEDS: QUETIAPINE FUMARATE 25 MG TABLET PO SCH (09:07)
[2019-03-03] MEDS: AMIODARONE HCL 200 MG TABLET PO SCH (09:07)
[2019-03-03] MEDS: ACETAMINOPHEN 325 MG TABLET PO SCH (09:07)
[2019-03-03] MEDS: PIOGLITAZONE HCL 15 MG TABLET PO SCH (09:07)
--- NOTE | 2019-03-03 09:53 | NUR ---
WOUND CARE CONSULT: PT PRESENTS WITH ORTHO DRESSINGS/SPLINTS TO BILATERAL LOWER EXTREMITIES AND SACRAL SCARRING WHICH EXTENDS TO BUTTOCKS, PRESENT ON ADMISSION. PT IS INCONTINENT. RECOMMENDATIONS MADE FOR SKIN PROTECTION. DISCUSSED WITH NURSING STAFF. DON ISOFLEX LOW AIRLOSS BED TO BE PLACED. ORTHO FOLLOWING FOR LOWER EXTREMITIES. WILL SEE PRN. FREEDMAN IN AGREEMENT WITH PLAN OF CARE. Addendum: 03/03/19 at 0956 by CARLOS LIU WNDNU Amended: Links added.
--- NOTE | 2019-03-03 15:48 | NUR ---
patient is leaving discharging to [facility] , report given to the recieving nurse , [facility] for order picker/assembler
== END 2019-03-03 16:08 | DRG 559 ==
LOC: ER 02:01 → MED 05:12
PROVIDERS: ADMIT Student in an Organized Health Care Education/Training Program; ATTEND Student in an Organized Health Care Education/Training Program
DX: M97.12XA Periprosthetic fracture around internal prosthetic left knee joint, initial encounter (principal); N17.0 Acute kidney failure with tubular necrosis; M80.062A Age-related osteoporosis with current pathological fracture, left lower leg, initial encounter for fracture; E44.0 Moderate protein-calorie malnutrition; M62.82 Rhabdomyolysis; M80.061A Age-related osteoporosis with current pathological fracture, right lower leg, initial encounter for fracture; F03.90 Unspecified dementia, unspecified severity, without behavioral disturbance, psychotic disturbance, mood disturbance, and anxiety; I25.10 Atherosclerotic heart disease of native coronary artery without angina pectoris; E78.5 Hyperlipidemia, unspecified; J44.9 Chronic obstructive pulmonary disease, unspecified; E03.9 Hypothyroidism, unspecified; E86.0 Dehydration; F29 Unspecified psychosis not due to a substance or known physiological condition; I48.0 Paroxysmal atrial fibrillation; Z79.01 Long term (current) use of anticoagulants; E11.9 Type 2 diabetes mellitus without complications; F41.9 Anxiety disorder, unspecified; F32.9 Major depressive disorder, single episode, unspecified; E66.01 Morbid (severe) obesity due to excess calories; L30.4 Erythema intertrigo; Z68.38 Body mass index [BMI] 38.0-38.9, adult; W18.30XA Fall on same level, unspecified, initial encounter; Y92.89 Other specified places as the place of occurrence of the external cause; E87.5 Hyperkalemia; F20.9 Schizophrenia, unspecified; D64.9 Anemia, unspecified; I11.0 Hypertensive heart disease with heart failure; I50.9 Heart failure, unspecified
CPT/HCPCS: 36415; 71045-TC; 72170-TC; 73552; 73590-TC; 73620-TC; 76770-TC; 80048-TC; 80053-TC; 80061-TC; 82550-TC; 82962-TC; 83735-TC; 84100-TC; 84439-TC; 84443-TC; 84484-TC; 85025-TC; 85610-TC; 87081-TC; 93307-TC; 97112-TC; 97530-TC; G0378; J1170; J1815; J2270; J2405; J3490; J7030; Q0162